=== PATIENT | female | born 1935 | race Caucasian/White ===

== ENCOUNTER → 2016-11-11 | Outpatient (CLI) | payer OTHER ==
[~2016-11-11] MED LIST: ATOR-24 PO; CALC500C70 PO; CITA20TA4 PO; FURO40TA3 PO; LISI-461 PO; NORT25CA PO; NVLGI7030 SC; SPIR25TA PO; TRAZ100T29 PO
== END | disposition home or self-care (01) ==
LOC: C.PAPS 08:36
PROVIDERS: ATTEND Obstetrics & Gynecology
DX: N89.8 Other specified noninflammatory disorders of vagina (principal)

== ENCOUNTER → 2017-02-07 | Outpatient (CLI) | payer OTHER ==
[2017-02-07 14:45] LABS: BASO % 0.2 %; BASO ABS # 0.02 K/uL (0-0.2); COMPLETE YES; EOS % 1.6 %; IG% 0.1 %; LYMPH % 16.7 %; LYMPH ABS # 1.39 K/uL (1.2-3.4); MEAN CELL VOLUME 90.3 fL (80-100); MEAN CORPUSCULAR HEMOGLOBIN 29.7 pg (25-34); MEAN CORPUSCULAR HGB CONC 32.9 g/dl (32-36); MEAN PLATELET VOLUME 10.1 fL (7.4-10.4); MONO % 7.9 %; NEUT % 73.5 %; PLATELET COUNT 228 K/uL (130-400); RED BLOOD COUNT 4.21 M/uL (4.2-5.4); WHITE BLOOD COUNT 8.33 K/uL (4.8-10.8)
[2017-02-07 14:58] LABS: URINE APPEARANCE CLEAR (CLEAR); URINE BILIRUBIN NEG (NEG); URINE COLOR YELLOW; URINE EPITHELIAL CELL AUTO >30 /lpf (0-5); URINE NITRITE NEG (NEG); URINE SPECIFIC GRAVITY 1.025 (1.000-1.030); UROBILINOGEN NEG (NEG); ZZUR CULT IF INDIC CLEAN CATCH YES
[2017-02-07 15:10] LABS: MANUAL MICROSCOPIC REQUIRED? NO; REVIEW REQ? NO
[2017-02-07 15:11] LABS: URINE PROTIEN/CREAT RATIO 0.2 (0-0.2); URINE TOTAL PROTEIN 24.5 mg/dl (0-11.9)
[2017-02-07 15:12] LABS: BLOOD UREA NITROGEN 18 mg/dl (7-18); BUN/CREATININE RATIO 20.2 (10-20); CALCIUM 8.9 mg/dl (8.5-10.1); CARBON DIOXIDE 31 mmol/L (21-32); CHLORIDE 105 mmol/L (98-107); CREATININE 0.91 mg/dl (0.60-1.20); GLUCOSE 202 mg/dl (70-99); POTASSIUM 4.5 mmol/L (3.5-5.1); SODIUM 142 mmol/L (136-145)
[2017-02-07 15:13] LABS: PHOSPHORUS 2.7 mg/dl (2.5-4.9)
== END | disposition home or self-care (01) ==
LOC: C.LAB1850 13:54
PROVIDERS: ATTEND Internal Medicine Nephrology
DX: N18.3 Chronic kidney disease, stage 3 (moderate) (principal)

== ENCOUNTER → 2017-08-08 | Outpatient (CLI) | payer OTHER ==
[2017-08-08 14:44] LABS: BASO % 0.3 %; BASO ABS # 0.03 K/uL (0-0.2); EOS % 1.8 %; HEMATOCRIT 41.3 % (37-47); HEMOGLOBIN 13.6 g/dL (12.0-16.0); IG# 0.02 K/uL (0.00-0.02); LYMPH % 23.2 %; LYMPH ABS # 2.61 K/uL (1.2-3.4); MEAN CELL VOLUME 88.6 fL (80-100); MEAN CORPUSCULAR HEMOGLOBIN 29.2 pg (25-34); MEAN CORPUSCULAR HGB CONC 32.9 g/dl (32-36); MEAN PLATELET VOLUME 10.2 fL (7.4-10.4); MONO % 8.5 %; MONO ABS # 0.96 K/uL (0.11-0.59); NEUT ABS # 7.42 K/uL (1.4-6.5); PLATELET COUNT 246 K/uL (130-400); RED CELL DISTRIBUTION WIDTH CV 13.7 % (11.5-14.5); RED CELL DISTRIBUTION WIDTH SD 44.5 fL (36.4-46.3); WHITE BLOOD COUNT 11.24 K/uL (4.8-10.8)
[2017-08-08 15:45] LABS: ALBUMIN 3.2 gm/dl (3.4-5.0); BLOOD UREA NITROGEN 20 mg/dl (7-18); CALCIUM 9.2 mg/dl (8.5-10.1); CARBON DIOXIDE 30 mmol/L (21-32); CREATININE 0.97 mg/dl (0.60-1.20); GLUCOSE 140 mg/dl (70-99); PHOSPHORUS 2.7 mg/dl (2.5-4.9); POTASSIUM 3.9 mmol/L (3.5-5.1); SODIUM 141 mmol/L (136-145)
== END | disposition home or self-care (01) ==
LOC: C.LAB1850 13:29
PROVIDERS: ATTEND Internal Medicine Nephrology
DX: N18.3 Chronic kidney disease, stage 3 (moderate) (principal)

== ENCOUNTER → 2017-08-18 | Outpatient (CLI) | payer OTHER | END | disposition home or self-care (01) | LOC: C.LABSPEC 13:25 | PROVIDERS: ATTEND Internal Medicine Nephrology | DX: N18.3 Chronic kidney disease, stage 3 (moderate) (principal) ==

== ENCOUNTER 2018-08-26 09:48 | Inpatient (IN) ==
--- NOTE | 2018-08-26 10:11 | XRay Report ---
XR chest 1V portable CLINICAL HISTORY: Chest Pain COMPARISON STUDY: Chest CT 09/14/2015. FINDINGS: Lung volumes are normal. There is no pneumothorax or pleural effusion. There is no consolid ation or evidence for pulmonary edema. Moderate cardiomegaly is unchanged. IMPRESSION: 1. No acute cardiopulmonary findings. 2. Stable cardiomegaly. Electronically signed by: Yobani Harper M.D. 08/26/2018 10:10 AM
[2018-08-26] MEDS ORDERED: ATROPINE SO4 1 MG/ML 1ML VIAL ONE (10:13)
[2018-08-26 10:21] LABS: Basophils # (auto) 0.01 K/uL (0-0.2); Basophils % (auto) 0.2 %; Eosinophils # (auto) 0.18 K/uL (0-0.5); Eosinophils % (auto) 3.1 %; Hematocrit (blood only) 41.9 % (37-47); Hemoglobin 13.4 g/dL (12.0-16.0); Immature Granulocytes # (auto) 0.01 K/uL (0.00-0.02); Immature Granulocytes % (auto) 0.2 %; Lymphocytes # (auto) 1.66 K/uL (1.2-3.4); Mean Corpuscular Volume 93.3 fL (80-100); Mean Platelet Volume 9.9 fL (7.4-10.4); Monocytes % (auto) 8.7 %; Neutrophils # (auto) 3.36 K/uL (1.4-6.5); Neutrophils % (auto) 58.8 %; Platelet Count 169 K/uL (130-400); RDW Coefficient of Variation 13.6 % (11.5-14.5); RDW Standard Deviation 46.7 fL (36.4-46.3); Red Blood Count 4.49 M/uL (4.2-5.4); White Blood Count 5.72 K/uL (4.8-10.8)
[2018-08-26 10:32] LABS: iSTAT Creatinine 0.9 mg/dl (0.6-1.3); iSTAT Hemoglobin 13.3 g/dl (12.0-16.0); iSTAT Ionized Calcium 1.26 mmol/l (1.12-1.32)
[2018-08-26] MEDS ORDERED: ATROPINE SULFATE 0.1 MG/ML 10ML SYR IV STA ×2 (10:35)
[2018-08-26 10:40] LABS: Alanine Aminotransferase 13 U/L (12-78); Aspartate Aminotransferase 18 U/L (15-37); Blood Urea Nitrogen 16 mg/dl (7-18); Calcium 8.8 mg/dl (8.5-10.1); Carbon Dioxide 31 mmol/L (21-32); Chloride 113 mmol/L (98-107); Est GFR (African American) 72.4; Est GFR (Non-African American) 62.5; Glucose 102 mg/dl (70-99); Potassium 4.1 mmol/L (3.5-5.1); Sodium 146 mmol/L (136-145)
[2018-08-26 10:45] LABS: Albumin Globulin Ratio 0.8 (0.9-2); Alkaline Phosphatase 124 U/L (45-117); Bilirubin,Total 0.2 mg/dl (0.2-1); Creatine Kinase 104 U/L (26-192); Creatine Kinase MB 4.9 ng/ml (0.5-3.6); Globulin 3.6 gm/dl (2.5-4.0); NT Pro B Type Natriuretic Pept 922 pg/ml (0-1800); Total Protein 6.6 gm/dl (6.4-8.2); Troponin I 0.025 ng/ml (0-0.045)
[2018-08-26] MEDS ORDERED: EPINEPHrine 2 MG in DEXTROSE 5% 250 ML IV STA (10:50)
--- NOTE | 2018-08-26 10:55 | Critical Care Consultation ---
Date of Consultation August 26, 2018 Assessment & Plan (1) Admitted to intensive care unit: Reason Critically Ill: 83-year-old female requiring dopamine for symptomatic bradycardia PLAN: Resp: Exertional dyspnea -Wean O2 as tolerated -Likely secondary to cardiac disease CV: Symptomatic bradycardia -Dopamine as tolerated -Transcutaneous pacer pads at all times -Patient consented for central line -Will consent for PICC line for dopamine administration would place large bore central venous access in case temporary pacemaker is required Fluids/Renal: Mild hypernatremia -No additional IV fluids at this time ID: Check Lyme titer GI/Nutrition: Heart healthy diet with carb consistent diet Elevated alkaline phosphatase Heme: Lovenox for DVT prophylaxis Endocrine: ICU hyperglycemia protocol -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 This is a life/limb threatening event. This includes time spent evaluating patient, direct bedside care, chart review, placing orders, interpretation of diagnostic studies, discussion with consultants, patient, and/or family members regarding treatment decisions, as well as other required patient management activities. This time is exclusive of all separately billable procedures, and teaching time and separate from and in addition to any other critical care service time. Present on Admission?: Yes History of Present Illness Reason for Consultation: Symptomatic bradycardia Requesting Physician: Royce Campa MD Attending Physician: Traci Le DO History of Present Illness Patient is an 83-year-old female with significant past medical history for cardiac disease, CHF, hypertension, diabetes who presented today with increasing shortness of breath and lightheadedness in the emergency department she was found to have a bradycardic idioventricular rhythm. She is responding to dopamine at this time and she is going to be admitted to the ICU for further evaluation and management and evaluation for possible pacemaker. Allergies Allergy/AdvReac Type Severity Reaction Status Date / Time No Known Allergies Allergy Unverified 08/26/18 10:36 Home Medications Home Medications Medication Instructions Recorded Confirmed Type C,E,zinc,copper [id number] 1 cap PO DAILY 08/26/18 08/26/18 History [Ocuvite Adult 50 Plus] aspirin 81 mg PO DAILY 08/26/18 08/26/18 History atorvastatin 40 mg PO HS 08/26/18 08/26/18 History buspirone 10 mg PO BID 08/26/18 08/26/18 History citalopram 20 mg PO DAILY 08/26/18 08/26/18 History clopidogrel 75 mg PO DAILY 08/26/18 08/26/18 History cyanocobalamin (vitamin B-12) 1,000 mcg PO DAILY 08/26/18 08/26/18 History [Vitamin B-12] furosemide 40 mg PO DAILY 08/26/18 08/26/18 History insulin NPH and regular human 32 unit SUBCUT QPM 08/26/18 08/26/18 History [Novolin 70-30 FlexPen U-100] insulin NPH and regular human 60 unit SUBCUT QAM 08/26/18 08/26/18 History [Novolin 70-30 FlexPen U-100] isosorbide mononitrate 30 mg PO DAILY 08/26/18 08/26/18 History lisinopril 5 mg PO DAILY 08/26/18 08/26/18 History melatonin 5 mg PO HS PRN 08/26/18 08/26/18 History topiramate 25 mg PO DAILY 08/26/18 08/26/18 History Patient History Medical History Diabetes (Chronic) Hypertension (Chronic) Acute on chronic diastolic CHF (congestive heart failure) (Acute 06/16/14) Headache (Acute) Hypoxia (Acute) Shortness of breath (Acute) Family History Other Family history non-contributory Social History Preferred Language: [place] marital status: Current Living Situation: Spouse current occupational status: retired Feels Safe at Home: Yes Smoking Status: Former smoker Review of Systems No chest pain, shortness of breath, exertional dyspnea. Physical Exam Vital Signs (Past 24 Hours): Last Vital Signs Temp 36.9 C 08/26/18 09:50 Pulse 49 L 08/26/18 10:46 Resp 30 H 08/26/18 10:46 BP 124/49 L 08/26/18 10:45 Pulse Ox 95 08/26/18 10:47 General: Elderly female who appears her stated age I have reviewed the recorded vital signs Neurological: RASS score: 0, Moves all 4 extremities, Psychological: GCS 15 following complex commands Eyes: Pupils are equal, round and reactive to light, anicteric sclera. Symmetrical lids. HENT: Oropharynx is clear, mucous membranes are moist. Neck: Supple. Symmetric. trachea midline. No thyromegaly. Cardiovascular: Normal peripheral perfusion. Distal pulses and capillary refill intact. No JVD. Respiratory: Respirations are non-labored, no accessory muscle use. Breath sounds are equal. Gastrointestinal: Soft. Non-distended. Lymphatic: No cervical lymphadenopathy. Musculoskeletal: No deformity. No clubbing nor cyanosis. Results & Data Laboratory Results 08/26/18 08/26/18 08/26/18 Range/Units 10:19 10:10 10:10 WBC (4.8-10.8) K/uL RBC (4.2-5.4) M/uL Hgb (12.0-16.0) g/dL POC Hgb 13.3 (12.0-16.0) g/dl Hct (37-47) % POC Hct 39 (37-47) % MCV (80-100) fL MCH (25-34) pg MCHC (32-36) g/dL RDW Std Deviation (36.4-46.3) fL RDW Coeff of Chun (11.5-14.5) % Plt Count (130-400) K/uL MPV (7.4-10.4) fL Immature Gran % (Auto) % Neut % (Auto) % Lymph % (Auto) % [place] % (Auto) % Eos % (Auto) % Baso % (Auto) % Immature Gran # (Auto) (0.00-0.02) K/uL Neut # (Auto) (1.4-6.5) K/uL Lymph # (Auto) (1.2-3.4) K/uL [place] # (Auto) (0.11-0.59) K/uL Eos # (Auto) (0-0.5) K/uL Baso # (Auto) (0-0.2) K/uL PT Pending INR Pending APTT Pending PTT Ratio Pending POC Sodium 146 H (135-144) mEq/L Sodium (136-145) mmol/L POC Potassium 4.0 (3.3-5.0) mEq/L Potassium (3.5-5.1) mmol/L POC Chloride 107 (101-112) mEq/L Chloride (98-107) mmol/L Carbon Dioxide (21-32) mmol/L POC Total CO2 28 (24-31) mEq/l Anion Gap (3-11) POC Anion Gap 15.0 L (16-25) mmol/L POC BUN 16 (7-18) mg/dl BUN (7-18) mg/dl Creatinine (0.6-1.2) mg/dl POC Creatinine 0.9 (0.6-1.3) mg/dl Est Cr Clr Drug Dosing Est GFR ( Amer) Est GFR (Non-Af Amer) BUN/Creatinine Ratio (10-20) Glucose (70-99) mg/dl POC Glucose (other) 101 H (70-99) mg/dl Calcium (8.5-10.1) mg/dl POC Ioniz Calcium Abhilash 1.26 (1.12-1.32) mmol/l Phosphorus Pending Magnesium Pending Total Bilirubin (0.2-1) mg/dl AST (15-37) U/L ALT (12-78) U/L Alkaline Phosphatase (45-117) U/L Total Creatine Kinase (26-192) U/L CK-MB (CK-2) (0.5-3.6) ng/ml CK/CKMB % Calc (0-3.0) Troponin I (0-0.045) ng/ml NT-Pro-B Natriuret Pep (0-1800) pg/ml Total Protein (6.4-8.2) gm/dl Albumin (3.4-5.0) gm/dl Globulin (2.5-4.0) gm/dl Albumin/Globulin Ratio (0.9-2) Lipase (73-393) U/L 08/26/18 08/26/18 Range/Units 10:10 10:10 WBC 5.72 (4.8-10.8) K/uL RBC 4.49 (4.2-5.4) M/uL Hgb 13.4 (12.0-16.0) g/dL POC Hgb (12.0-16.0) g/dl Hct 41.9 (37-47) % POC Hct (37-47) % MCV 93.3 (80-100) fL MCH 29.8 (25-34) pg MCHC 32.0 (32-36) g/dL RDW Std Deviation 46.7 H (36.4-46.3) fL RDW Coeff of Chun 13.6 (11.5-14.5) % Plt Count 169 (130-400) K/uL MPV 9.9 (7.4-10.4) fL Immature Gran % (Auto) 0.2 % Neut % (Auto) 58.8 % Lymph % (Auto) 29.0 % [place] % (Auto) 8.7 % Eos % (Auto) 3.1 % Baso % (Auto) 0.2 % Immature Gran # (Auto) 0.01 (0.00-0.02) K/uL Neut # (Auto) 3.36 (1.4-6.5) K/uL Lymph # (Auto) 1.66 (1.2-3.4) K/uL [place] # (Auto) 0.50 (0.11-0.59) K/uL Eos # (Auto) 0.18 (0-0.5) K/uL Baso # (Auto) 0.01 (0-0.2) K/uL PT INR APTT PTT Ratio POC Sodium (135-144) mEq/L Sodium 146 H (136-145) mmol/L POC Potassium (3.3-5.0) mEq/L Potassium 4.1 (3.5-5.1) mmol/L POC Chloride (101-112) mEq/L Chloride 113 H (98-107) mmol/L Carbon Dioxide 31 (21-32) mmol/L POC Total CO2 (24-31) mEq/l Anion Gap 2.0 L (3-11) POC Anion Gap (16-25) mmol/L POC BUN (7-18) mg/dl BUN 16 (7-18) mg/dl Creatinine 0.87 (0.6-1.2) mg/dl POC Creatinine (0.6-1.3) mg/dl Est Cr Clr Drug Dosing Not Reportable Est GFR ( Amer) 72.4 Est GFR (Non-Af Amer) 62.5 BUN/Creatinine Ratio 18.0 (10-20) Glucose 102 H (70-99) mg/dl POC Glucose (other) (70-99) mg/dl Calcium 8.8 (8.5-10.1) mg/dl POC Ioniz Calcium Abhilash (1.12-1.32) mmol/l Phosphorus Magnesium Total Bilirubin 0.2 (0.2-1) mg/dl AST 18 (15-37) U/L ALT 13 (12-78) U/L Alkaline Phosphatase 124 H (45-117) U/L Total Creatine Kinase 104 (26-192) U/L CK-MB (CK-2) 4.9 H (0.5-3.6) ng/ml CK/CKMB % Calc 4.7 H (0-3.0) Troponin I 0.025 (0-0.045) ng/ml NT-Pro-B Natriuret Pep 922 (0-1800) pg/ml Total Protein 6.6 (6.4-8.2) gm/dl Albumin 3.0 L (3.4-5.0) gm/dl Globulin 3.6 (2.5-4.0) gm/dl Albumin/Globulin Ratio 0.8 L (0.9-2) Lipase 115 (73-393) U/L ECG Additional Comments: Idioventricular rhythm of 40 QRS duration 156 abnormal EKG
[2018-08-26] MEDS: DOPAMINE / D5W 400 MG/250 ML BAG IV SCH (11:10)
[2018-08-26 11:24] LABS: Partial Thromboplastin Ratio 0.9; Partial Thromboplastin Time 24.5 Seconds (21.0-31.0); Prothrombin Time 10.3 Seconds (9.0-12.0)
[2018-08-26 11:26] LABS: Magnesium 2.1 mg/dl (1.8-2.4); Phosphorus 2.6 mg/dl (2.5-4.9)
--- NOTE | 2018-08-26 11:34 | History & Physical Report ---
Date of Service August 26, 2018 Assessment & Plan (1) Bradycardia: EKG on admission showed ventricularly-based rhythm. Per ED physician, this is similar to priors (none in [facility]), but now with bradycardia to the 30s. BP has been stable, and patient reports minimal presyncopal symptoms. Responsive to atropine pushes in the ED. - Dopamine infusion per ICU physician -> HR had responded appropriately with rate in the 50s on my exam in the ED & BP was still stable - Cardiology consult - Monitor HR and BP - Likely pacemaker per cardiology (2) Dyspnea: Presumably due to bradycardia. Appears euvolemic on exam (no edema, no JVD, normal CXR and BNP), so heart failure unlikely. Has been on long-standing 2.5L NC for COPD & nocturnal hypoxemia, but currently 94% on room air, so less likely to be a primary lung issue. - Address bradycardia as above - Monitor O2 sat - PT/OT - Consider further pulmonary work-up if shortness of breath doesn't improve with regular heart rate (3) Hypertension: BP in the ED was 130/50 with bradycardia. - Monitor BP - Hold HTN meds until HR stabilized (4) Chronic diastolic (congestive) heart failure: Echo in 2014 showed LFEV 60% with Grade 1 diastolic dysfunction. On Lasix at home; no weight gain per patient. - Continue home ASA, clopidogrel, statin, and furosemide - Hold Imdur until seen by cardiology or HR stabilizes - Monitor volume status (5) Diabetes: No recent A1c in our records. On insulin 70/30 BID at home. - Glycemic consult - Will adjust to long-acting and SSI while inpatient - Repeat A1c (6) Chronic hypoxemic respiratory failure: On 2.5L NC 24-hours/day per patient for years (last pulmonary note I see is from 2014). For COPD and noctural hypoxemia. 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 - Monitor pulse ox - O2 PRN (7) DVT prophylaxis: SCDs - Hold chemoprophylaxis until seen by cardiology given possible procedure History of Present Illness Primary Care Provider: Rahsavanna Pulido 83yo F w/ hx of HTN, HLD, DM, and diastolic CHF who presents with shortness of breath x 3 days. She reports a rapid onset. No cough, no fevers, chills, no sputum. She notes some PND and dyspnea on exertion that have been longer- standing; however, she denies any edema (lower extremity or abdominal) and does not know if she's gained any weight in the last 1-2 weeks. She usually walks outside with a walker, but notes that over weeks, she has had trouble walking around the house and that she should probably use her walker at home as well. She reports some mild lightheadedness that is transient in the last 3 days as well, but no syncopal events. Doesn't note if this is worse with position changes. No chest pain, no palpitations. Allergies Allergy/AdvReac Type Severity Reaction Status Date / Time No Known Allergies Allergy Unverified 08/26/18 10:36 Home Medications Home Medications Medication Instructions Recorded Confirmed Type C,E,zinc,copper [id number] 1 cap PO DAILY 08/26/18 08/26/18 History [Ocuvite Adult 50 Plus] aspirin 81 mg PO DAILY 08/26/18 08/26/18 History atorvastatin 40 mg PO HS 08/26/18 08/26/18 History buspirone 10 mg PO BID 08/26/18 08/26/18 History citalopram 20 mg PO DAILY 08/26/18 08/26/18 History clopidogrel 75 mg PO DAILY 08/26/18 08/26/18 History cyanocobalamin (vitamin B-12) 1,000 mcg PO DAILY 08/26/18 08/26/18 History [Vitamin B-12] furosemide 40 mg PO DAILY 08/26/18 08/26/18 History insulin NPH and regular human 32 unit SUBCUT QPM 08/26/18 08/26/18 History [Novolin 70-30 FlexPen U-100] insulin NPH and regular human 60 unit SUBCUT QAM 08/26/18 08/26/18 History [Novolin 70-30 FlexPen U-100] isosorbide mononitrate 30 mg PO DAILY 08/26/18 08/26/18 History lisinopril 5 mg PO DAILY 08/26/18 08/26/18 History melatonin 5 mg PO HS PRN 08/26/18 08/26/18 History topiramate 25 mg PO DAILY 08/26/18 08/26/18 History Past Med/Surg History Medical History Diabetes (Chronic) Hypertension (Chronic) Acute on chronic diastolic CHF (congestive heart failure) (Acute 06/16/14) Headache (Acute) Hypoxia (Acute) Shortness of breath (Acute) Family History Father Hypertension Social History Preferred Language: [place] Communication Ability: Effective Urologist Required: No Beliefs That Will Affect Care: None marital status: Current Living Situation: Spouse current occupational status: retired Other Information That Helps Us Care for You: No Feels Safe at Home: Yes Safety Concerns: Feels Safe At This Time Smoking Status: Former smoker Hx Alcohol Use: No Hx Substance Use: No Review of Systems Constitutional: no fever, no chills and no sweats Eyes: no diplopia Ear, Nose, Mouth, Throat: no ear trauma, no nasal discharge and no dental pain Respiratory: + dyspnea and + dyspnea on exertion; no cough and no chest congestion Cardiovascular: + dyspnea and + orthopnea; no chest pain, no dyspnea on exertion, no palpitations, no syncope and no edema Gastrointestinal: no abdominal pain, no belching, no constipation, no diarrhea/loose stools, no blood in stools and no melena Musculoskeletal: no back pain, no joint pain and no muscle weakness Integumentary: no rash, no skin ulcer and no erythema Neurologic: no generalized weakness, no loss of sensation, no numbness and no paresthesia Psychiatric: no depression and no anxiety Endocrine: no fatigue, no polydipsia and no polyphagia Physical Exam Vital Signs (Past 24 Hours): Last Vital Signs Temp 36.9 C 08/26/18 09:50 Pulse 54 L 08/26/18 11:16 Resp 18 08/26/18 11:16 BP 112/49 L 08/26/18 11:16 Pulse Ox 94 08/26/18 11:16 Constitutional: WD/WN, vitals as above Eyes: EOM intact bilaterally; no conjunctival abnormality ENMT: external ear and nose normal, oropharynx normal Neck: trachea midline, no thyromegaly normal visual inspection Respiratory: normal respiratory effort, lungs clear to auscultation no respiratory distress Cardiovascular: Rate/Rhythm: regular rhythm and + bradycardic Heart Sounds: normal S1 and normal S2 Vessels: no JVD Extremities: no edema Gastrointestinal (Abdomen): Inspection/Auscultation: abdomen normal to inspection; abdomen not distended Musculoskeletal: no cyanosis or clubbing, extremities motor strength 5/5 Skin: no rashes, warm and dry Neurologic: moves all extremities and awake Psychiatric: Orientation: alert, oriented to person and cooperative
[2018-08-26 12:09] LABS: Lyme Ab IgG w/WB Rflx Negative (Negative); Lyme Ab IgM w/WB Rflx Negative (Negative)
[2018-08-26] MEDS ORDERED: GLUCOSE 10 TABS/TUBE PO PRN (12:58)
[2018-08-26] MEDS ORDERED: ICU PROTOCOL FOR HYPERGLYCEMIA PRN (12:58)
[2018-08-26] MEDS ORDERED: CARBOHYDRATES FOR HYPOGLYCEMIA PO PRN (12:58)
[2018-08-26] MEDS ORDERED: DEXTROSE 50% 50 ML SYRINGE IV PRN (12:58)
[2018-08-26] MEDS ORDERED: GLUCOSE 40% GEL 15 GM TUBE PO PRN (12:58)
[2018-08-26] MEDS ORDERED: GLUCAGON FOR INJ 1 MG VIAL SQ PRN (12:58)
[2018-08-26] MEDS: INSULIN ASPART 100 UNITS/ML 3 ML PEN SC SCH ×3 (14:04→21:39)
[2018-08-26] MEDS: NSS + 20MEQ KCL 20 MEQ/1,000 ML BAG IV SCH (14:06)
[2018-08-26] MEDS: ENOXAPARIN INJ 40 MG/0.4 ML SYR SQ SCH (16:35)
[2018-08-26] MEDS: ATORVASTATIN 40 MG TAB PO SCH (21:41)
[2018-08-27] MEDS: DOPAMINE / D5W 400 MG/250 ML BAG IV SCH ×2 (02:04→13:00)
[2018-08-27] MEDS: NSS + 20MEQ KCL 20 MEQ/1,000 ML BAG IV SCH (02:06)
--- NOTE | 2018-08-27 05:51 | Critical Care Progress Note ---
Date of Service August 27, 2018 Assessment & Plan (1) Admitted to intensive care unit: Reason Critically Ill: 83-year-old female requiring dopamine for symptomatic bradycardia PLAN: Resp: Exertional dyspnea -Likely secondary to cardiac conduction disease CV: Symptomatic bradycardia: Improved with dopamine -Continue to watch vascular access points -Transcutaneous pacer pads at all times -Patient consented for central line -Continue peripheral IVs, risk of central line outweigh risk of potential extravasation, monitor IV sites Fluids/Renal: Mild hypernatremia -No additional IV fluids at this time ID: Lyme titer: Negative GI/Nutrition: Heart healthy diet with carb consistent diet Elevated alkaline phosphatase -N.p.o. 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 This is a life/limb threatening event. This includes time spent evaluating patient, direct bedside care, chart review, placing orders, interpretation of diagnostic studies, discussion with consultants, patient, and/or family members regarding treatment decisions, as well as other required patient management activities. This time is exclusive of all separately billable procedures, and teaching time and separate from and in addition to any other critical care service time. Subjective No overnight events, no chest pain no dizziness PICC team unable to place advanced access secondary to vasculature being too narrow in diameter Physical Exam Vital Signs (Past 24 Hours): Last Vital Signs Temp 36.4 C L 08/26/18 14:15 Pulse 53 L 08/26/18 14:15 Resp 20 08/26/18 14:15 BP 155/52 H 08/26/18 14:01 Pulse Ox 97 08/26/18 14:15 General: Alert. nontoxic. Skin: Warm, dry, Head: Atraumatic Ears, nose, mouth and throat: airway patent Cardiovascular: Normal peripheral perfusion Respiratory: no respiratory distress Gastrointestinal: Non distended Musculoskeletal: No deformity Results & Data Laboratory Results 08/26/18 08/26/18 08/26/18 Range/Units 20:43 15:58 15:50 WBC (4.8-10.8) K/uL RBC (4.2-5.4) M/uL Hgb (12.0-16.0) g/dL POC Hgb (12.0-16.0) g/dl Hct (37-47) % POC Hct (37-47) % MCV (80-100) fL MCH (25-34) pg MCHC (32-36) g/dL RDW Std Deviation (36.4-46.3) fL RDW Coeff of Chun (11.5-14.5) % Plt Count (130-400) K/uL MPV (7.4-10.4) fL Immature Gran % (Auto) % Neut % (Auto) % Lymph % (Auto) % Iron % (Auto) % Eos % (Auto) % Baso % (Auto) % Immature Gran # (Auto) (0.00-0.02) K/uL Neut # (Auto) (1.4-6.5) K/uL Lymph # (Auto) (1.2-3.4) K/uL Iron # (Auto) (0.11-0.59) K/uL Eos # (Auto) (0-0.5) K/uL Baso # (Auto) (0-0.2) K/uL PT (9.0-12.0) Seconds INR (0.9-1.1) APTT (21.0-31.0) Seconds PTT Ratio POC Sodium (135-144) mEq/L Sodium (136-145) mmol/L POC Potassium (3.3-5.0) mEq/L Potassium (3.5-5.1) mmol/L POC Chloride (101-112) mEq/L Chloride (98-107) mmol/L Carbon Dioxide (21-32) mmol/L POC Total CO2 (24-31) mEq/l Anion Gap (3-11) POC Anion Gap (16-25) mmol/L POC BUN (7-18) mg/dl BUN (7-18) mg/dl Creatinine (0.6-1.2) mg/dl POC Creatinine (0.6-1.3) mg/dl Est Cr Clr Drug Dosing Est GFR ( Amer) Est GFR (Non-Af Amer) BUN/Creatinine Ratio (10-20) Glucose (70-99) mg/dl POC Glucose 109 H 119 H (70-99) POC Glucose (other) (70-99) mg/dl Estimat Average Glucose Hemoglobin A1c Lactate (0.4-2.0) mmol/L Calcium (8.5-10.1) mg/dl POC Ioniz Calcium Abhilash (1.12-1.32) mmol/l Phosphorus (2.5-4.9) mg/dl Magnesium (1.8-2.4) mg/dl Total Bilirubin (0.2-1) mg/dl AST (15-37) U/L ALT (12-78) U/L Alkaline Phosphatase (45-117) U/L Total Creatine Kinase (26-192) U/L CK-MB (CK-2) (0.5-3.6) ng/ml CK/CKMB % Calc (0-3.0) Troponin I 0.026 (0-0.045) ng/ml NT-Pro-B Natriuret Pep (0-1800) pg/ml Total Protein (6.4-8.2) gm/dl Albumin (3.4-5.0) gm/dl Globulin (2.5-4.0) gm/dl Albumin/Globulin Ratio (0.9-2) Lipase (73-393) U/L TSH (0.300-4.500) uIu/ml Nasal Screen MRSA (PCR) (Negative) Lyme Disease IgG Ab (Negative) Lyme Disease IgM Ab (Negative) 08/26/18 08/26/18 08/26/18 Range/Units 14:18 14:03 14:02 WBC (4.8-10.8) K/uL RBC (4.2-5.4) M/uL Hgb (12.0-16.0) g/dL POC Hgb (12.0-16.0) g/dl Hct (37-47) % POC Hct (37-47) % MCV (80-100) fL MCH (25-34) pg MCHC (32-36) g/dL RDW Std Deviation (36.4-46.3) fL RDW Coeff of Chun (11.5-14.5) % Plt Count (130-400) K/uL MPV (7.4-10.4) fL Immature Gran % (Auto) % Neut % (Auto) % Lymph % (Auto) % Iron % (Auto) % Eos % (Auto) % Baso % (Auto) % Immature Gran # (Auto) (0.00-0.02) K/uL Neut # (Auto) (1.4-6.5) K/uL Lymph # (Auto) (1.2-3.4) K/uL Iron # (Auto) (0.11-0.59) K/uL Eos # (Auto) (0-0.5) K/uL Baso # (Auto) (0-0.2) K/uL PT (9.0-12.0) Seconds INR (0.9-1.1) APTT (21.0-31.0) Seconds PTT Ratio POC Sodium (135-144) mEq/L Sodium (136-145) mmol/L POC Potassium (3.3-5.0) mEq/L Potassium (3.5-5.1) mmol/L POC Chloride (101-112) mEq/L Chloride (98-107) mmol/L Carbon Dioxide (21-32) mmol/L POC Total CO2 (24-31) mEq/l Anion Gap (3-11) POC Anion Gap (16-25) mmol/L POC BUN (7-18) mg/dl BUN (7-18) mg/dl Creatinine (0.6-1.2) mg/dl POC Creatinine (0.6-1.3) mg/dl Est Cr Clr Drug Dosing Est GFR ( Amer) Est GFR (Non-Af Amer) BUN/Creatinine Ratio (10-20) Glucose (70-99) mg/dl POC Glucose 124 H 54 L* 51 L* (70-99) POC Glucose (other) (70-99) mg/dl Estimat Average Glucose Hemoglobin A1c Lactate (0.4-2.0) mmol/L Calcium (8.5-10.1) mg/dl POC Ioniz Calcium Abhilash (1.12-1.32) mmol/l Phosphorus (2.5-4.9) mg/dl Magnesium (1.8-2.4) mg/dl Total Bilirubin (0.2-1) mg/dl AST (15-37) U/L ALT (12-78) U/L Alkaline Phosphatase (45-117) U/L Total Creatine Kinase (26-192) U/L CK-MB (CK-2) (0.5-3.6) ng/ml CK/CKMB % Calc (0-3.0) Troponin I (0-0.045) ng/ml NT-Pro-B Natriuret Pep (0-1800) pg/ml Total Protein (6.4-8.2) gm/dl Albumin (3.4-5.0) gm/dl Globulin (2.5-4.0) gm/dl Albumin/Globulin Ratio (0.9-2) Lipase (73-393) U/L TSH (0.300-4.500) uIu/ml Nasal Screen MRSA (PCR) (Negative) Lyme Disease IgG Ab (Negative) Lyme Disease IgM Ab (Negative) 08/26/18 08/26/18 08/26/18 Range/Units 12:40 12:35 10:19 WBC (4.8-10.8) K/uL RBC (4.2-5.4) M/uL Hgb (12.0-16.0) g/dL POC Hgb 13.3 (12.0-16.0) g/dl Hct (37-47) % POC Hct 39 (37-47) % MCV (80-100) fL MCH (25-34) pg MCHC (32-36) g/dL RDW Std Deviation (36.4-46.3) fL RDW Coeff of Chun (11.5-14.5) % Plt Count (130-400) K/uL MPV (7.4-10.4) fL Immature Gran % (Auto) % Neut % (Auto) % Lymph % (Auto) % Iron % (Auto) % Eos % (Auto) % Baso % (Auto) % Immature Gran # (Auto) (0.00-0.02) K/uL Neut # (Auto) (1.4-6.5) K/uL Lymph # (Auto) (1.2-3.4) K/uL Iron # (Auto) (0.11-0.59) K/uL Eos # (Auto) (0-0.5) K/uL Baso # (Auto) (0-0.2) K/uL PT (9.0-12.0) Seconds INR (0.9-1.1) APTT (21.0-31.0) Seconds PTT Ratio POC Sodium 146 H (135-144) mEq/L Sodium (136-145) mmol/L POC Potassium 4.0 (3.3-5.0) mEq/L Potassium (3.5-5.1) mmol/L POC Chloride 107 (101-112) mEq/L Chloride (98-107) mmol/L Carbon Dioxide (21-32) mmol/L POC Total CO2 28 (24-31) mEq/l Anion Gap (3-11) POC Anion Gap 15.0 L (16-25) mmol/L POC BUN 16 (7-18) mg/dl BUN (7-18) mg/dl Creatinine (0.6-1.2) mg/dl POC Creatinine 0.9 (0.6-1.3) mg/dl Est Cr Clr Drug Dosing Est GFR ( Amer) Est GFR (Non-Af Amer) BUN/Creatinine Ratio (10-20) Glucose (70-99) mg/dl POC Glucose (70-99) POC Glucose (other) 101 H (70-99) mg/dl Estimat Average Glucose Hemoglobin A1c Lactate 0.5 (0.4-2.0) mmol/L Calcium (8.5-10.1) mg/dl POC Ioniz Calcium Abhilash 1.26 (1.12-1.32) mmol/l Phosphorus (2.5-4.9) mg/dl Magnesium (1.8-2.4) mg/dl Total Bilirubin (0.2-1) mg/dl AST (15-37) U/L ALT (12-78) U/L Alkaline Phosphatase (45-117) U/L Total Creatine Kinase (26-192) U/L CK-MB (CK-2) (0.5-3.6) ng/ml CK/CKMB % Calc (0-3.0) Troponin I (0-0.045) ng/ml NT-Pro-B Natriuret Pep (0-1800) pg/ml Total Protein (6.4-8.2) gm/dl Albumin (3.4-5.0) gm/dl Globulin (2.5-4.0) gm/dl Albumin/Globulin Ratio (0.9-2) Lipase (73-393) U/L TSH (0.300-4.500) uIu/ml Nasal Screen MRSA (PCR) Negative (Negative) Lyme Disease IgG Ab (Negative) Lyme Disease IgM Ab (Negative) 08/26/18 08/26/18 08/26/18 Range/Units 10:10 10:10 10:10 WBC (4.8-10.8) K/uL RBC (4.2-5.4) M/uL Hgb (12.0-16.0) g/dL POC Hgb (12.0-16.0) g/dl Hct (37-47) % POC Hct (37-47) % MCV (80-100) fL MCH (25-34) pg MCHC (32-36) g/dL RDW Std Deviation (36.4-46.3) fL RDW Coeff of Chun (11.5-14.5) % Plt Count (130-400) K/uL MPV (7.4-10.4) fL Immature Gran % (Auto) % Neut % (Auto) % Lymph % (Auto) % Iron % (Auto) % Eos % (Auto) % Baso % (Auto) % Immature Gran # (Auto) (0.00-0.02) K/uL Neut # (Auto) (1.4-6.5) K/uL Lymph # (Auto) (1.2-3.4) K/uL Iron # (Auto) (0.11-0.59) K/uL Eos # (Auto) (0-0.5) K/uL Baso # (Auto) (0-0.2) K/uL PT (9.0-12.0) Seconds INR (0.9-1.1) APTT (21.0-31.0) Seconds PTT Ratio POC Sodium (135-144) mEq/L Sodium (136-145) mmol/L POC Potassium (3.3-5.0) mEq/L Potassium (3.5-5.1) mmol/L POC Chloride (101-112) mEq/L Chloride (98-107) mmol/L Carbon Dioxide (21-32) mmol/L POC Total CO2 (24-31) mEq/l Anion Gap (3-11) POC Anion Gap (16-25) mmol/L POC BUN (7-18) mg/dl BUN (7-18) mg/dl Creatinine (0.6-1.2) mg/dl POC Creatinine (0.6-1.3) mg/dl Est Cr Clr Drug Dosing Est GFR ( Amer) Est GFR (Non-Af Amer) BUN/Creatinine Ratio (10-20) Glucose (70-99) mg/dl POC Glucose (70-99) POC Glucose (other) (70-99) mg/dl Estimat Average Glucose Pending Hemoglobin A1c Pending Lactate (0.4-2.0) mmol/L Calcium (8.5-10.1) mg/dl POC Ioniz Calcium Abhilash (1.12-1.32) mmol/l Phosphorus (2.5-4.9) mg/dl Magnesium (1.8-2.4) mg/dl Total Bilirubin (0.2-1) mg/dl AST (15-37) U/L ALT (12-78) U/L Alkaline Phosphatase (45-117) U/L Total Creatine Kinase (26-192) U/L CK-MB (CK-2) (0.5-3.6) ng/ml CK/CKMB % Calc (0-3.0) Troponin I (0-0.045) ng/ml NT-Pro-B Natriuret Pep (0-1800) pg/ml Total Protein (6.4-8.2) gm/dl Albumin (3.4-5.0) gm/dl Globulin (2.5-4.0) gm/dl Albumin/Globulin Ratio (0.9-2) Lipase (73-393) U/L TSH Cancelled (0.300-4.500) uIu/ml Nasal Screen MRSA (PCR) (Negative) Lyme Disease IgG Ab Negative (Negative) Lyme Disease IgM Ab Negative (Negative) 08/26/18 08/26/18 08/26/18 Range/Units 10:10 10:10 10:10 WBC (4.8-10.8) K/uL RBC (4.2-5.4) M/uL Hgb (12.0-16.0) g/dL POC Hgb (12.0-16.0) g/dl Hct (37-47) % POC Hct (37-47) % MCV (80-100) fL MCH (25-34) pg MCHC (32-36) g/dL RDW Std Deviation (36.4-46.3) fL RDW Coeff of Chun (11.5-14.5) % Plt Count (130-400) K/uL MPV (7.4-10.4) fL Immature Gran % (Auto) % Neut % (Auto) % Lymph % (Auto) % Iron % (Auto) % Eos % (Auto) % Baso % (Auto) % Immature Gran # (Auto) (0.00-0.02) K/uL Neut # (Auto) (1.4-6.5) K/uL Lymph # (Auto) (1.2-3.4) K/uL Iron # (Auto) (0.11-0.59) K/uL Eos # (Auto) (0-0.5) K/uL Baso # (Auto) (0-0.2) K/uL PT 10.3 (9.0-12.0) Seconds INR 1.0 (0.9-1.1) APTT 24.5 (21.0-31.0) Seconds PTT Ratio 0.9 POC Sodium (135-144) mEq/L Sodium 146 H (136-145) mmol/L POC Potassium (3.3-5.0) mEq/L Potassium 4.1 (3.5-5.1) mmol/L POC Chloride (101-112) mEq/L Chloride 113 H (98-107) mmol/L Carbon Dioxide 31 (21-32) mmol/L POC Total CO2 (24-31) mEq/l Anion Gap 2.0 L (3-11) POC Anion Gap (16-25) mmol/L POC BUN (7-18) mg/dl BUN 16 (7-18) mg/dl Creatinine 0.87 (0.6-1.2) mg/dl POC Creatinine (0.6-1.3) mg/dl Est Cr Clr Drug Dosing Not Reportable Est GFR ( Amer) 72.4 Est GFR (Non-Af Amer) 62.5 BUN/Creatinine Ratio 18.0 (10-20) Glucose 102 H (70-99) mg/dl POC Glucose (70-99) POC Glucose (other) (70-99) mg/dl Estimat Average Glucose Hemoglobin A1c Lactate (0.4-2.0) mmol/L Calcium 8.8 (8.5-10.1) mg/dl POC Ioniz Calcium Abhilash (1.12-1.32) mmol/l Phosphorus 2.6 (2.5-4.9) mg/dl Magnesium 2.1 (1.8-2.4) mg/dl Total Bilirubin 0.2 (0.2-1) mg/dl AST 18 (15-37) U/L ALT 13 (12-78) U/L Alkaline Phosphatase 124 H (45-117) U/L Total Creatine Kinase 104 (26-192) U/L CK-MB (CK-2) 4.9 H (0.5-3.6) ng/ml CK/CKMB % Calc 4.7 H (0-3.0) Troponin I 0.025 (0-0.045) ng/ml NT-Pro-B Natriuret Pep 922 (0-1800) pg/ml Total Protein 6.6 (6.4-8.2) gm/dl Albumin 3.0 L (3.4-5.0) gm/dl Globulin 3.6 (2.5-4.0) gm/dl Albumin/Globulin Ratio 0.8 L (0.9-2) Lipase 115 (73-393) U/L TSH 1.280 (0.300-4.500) uIu/ml Nasal Screen MRSA (PCR) (Negative) Lyme Disease IgG Ab (Negative) Lyme Disease IgM Ab (Negative) 08/26/18 Range/Units 10:10 WBC 5.72 (4.8-10.8) K/uL RBC 4.49 (4.2-5.4) M/uL Hgb 13.4 (12.0-16.0) g/dL POC Hgb (12.0-16.0) g/dl Hct 41.9 (37-47) % POC Hct (37-47) % MCV 93.3 (80-100) fL MCH 29.8 (25-34) pg MCHC 32.0 (32-36) g/dL RDW Std Deviation 46.7 H (36.4-46.3) fL RDW Coeff of Chun 13.6 (11.5-14.5) % Plt Count 169 (130-400) K/uL MPV 9.9 (7.4-10.4) fL Immature Gran % (Auto) 0.2 % Neut % (Auto) 58.8 % Lymph % (Auto) 29.0 % Iron % (Auto) 8.7 % Eos % (Auto) 3.1 % Baso % (Auto) 0.2 % Immature Gran # (Auto) 0.01 (0.00-0.02) K/uL Neut # (Auto) 3.36 (1.4-6.5) K/uL Lymph # (Auto) 1.66 (1.2-3.4) K/uL Iron # (Auto) 0.50 (0.11-0.59) K/uL Eos # (Auto) 0.18 (0-0.5) K/uL Baso # (Auto) 0.01 (0-0.2) K/uL PT (9.0-12.0) Seconds INR (0.9-1.1) APTT (21.0-31.0) Seconds PTT Ratio POC Sodium (135-144) mEq/L Sodium (136-145) mmol/L POC Potassium (3.3-5.0) mEq/L Potassium (3.5-5.1) mmol/L POC Chloride (101-112) mEq/L Chloride (98-107) mmol/L Carbon Dioxide (21-32) mmol/L POC Total CO2 (24-31) mEq/l Anion Gap (3-11) POC Anion Gap (16-25) mmol/L POC BUN (7-18) mg/dl BUN (7-18) mg/dl Creatinine (0.6-1.2) mg/dl POC Creatinine (0.6-1.3) mg/dl Est Cr Clr Drug Dosing Est GFR ( Amer) Est GFR (Non-Af Amer) BUN/Creatinine Ratio (10-20) Glucose (70-99) mg/dl POC Glucose (70-99) POC Glucose (other) (70-99) mg/dl Estimat Average Glucose Hemoglobin A1c Lactate (0.4-2.0) mmol/L Calcium (8.5-10.1) mg/dl POC Ioniz Calcium Abhilash (1.12-1.32) mmol/l Phosphorus (2.5-4.9) mg/dl Magnesium (1.8-2.4) mg/dl Total Bilirubin (0.2-1) mg/dl AST (15-37) U/L ALT (12-78) U/L Alkaline Phosphatase (45-117) U/L Total Creatine Kinase (26-192) U/L CK-MB (CK-2) (0.5-3.6) ng/ml CK/CKMB % Calc (0-3.0) Troponin I (0-0.045) ng/ml NT-Pro-B Natriuret Pep (0-1800) pg/ml Total Protein (6.4-8.2) gm/dl Albumin (3.4-5.0) gm/dl Globulin (2.5-4.0) gm/dl Albumin/Globulin Ratio (0.9-2) Lipase (73-393) U/L TSH (0.300-4.500) uIu/ml Nasal Screen MRSA (PCR) (Negative) Lyme Disease IgG Ab (Negative) Lyme Disease IgM Ab (Negative)
[2018-08-27] MEDS: CITALOPRAM 20 MG TAB PO SCH (07:40)
[2018-08-27] MEDS: ASPIRIN 81 MG ECTAB PO SCH (07:40)
[2018-08-27] MEDS: CLOPIDOGREL BISULFATE 75 MG TAB PO SCH (07:40)
[2018-08-27] MEDS: TOPIRAMATE 25 MG TAB PO SCH (07:40)
[2018-08-27] MEDS: INSULIN ASPART 100 UNITS/ML 3 ML PEN SC SCH ×4 (08:56→21:40)
--- NOTE | 2018-08-27 11:54 | Cardiology Consultation ---
Date of Consultation August 27, 2018 Assessment & Plan (1) Bradycardia: The patient was noted to be in an idioventricular rhythm at the time of her presentation. Suspect that her chronotropic incompetence was responsible for her complaints of dyspnea and PND. Fortunately, intravenous diabetes has returned her sinus mechanism. Will ask one of our associate professor of geology to evaluate the patient tomorrow. (2) Chronic diastolic (congestive) heart failure: Although the patient is not in overt failure at this time, her bradycardia may have exacerbated her known diastolic CHF. (3) Hypertension: Adequate control on her current regimen. (4) Shortness of breath: Likely related to chronotropic incompetence. History of Present Illness Attending Physician: Andrei Stanley History of Present Illness Mrs. Kramer is an 83-year-old female admitted yesterday with symptomatic bradycardia. This consultation was ordered to assist in her cardiac management. Of note, the patient was previously cared for by Dr. Ferrera in the outpatient setting. The patient was in her usual state of health until approximately 3-4 days prior to presentation. She began to note PND and profound dyspnea with minimal physical exertion. She has not experienced any exertional chest pain. She presented to the emergency room was noted to be in an idioventricular rhythm with a heart rate in the 30s. She was started on intravenous dopamine and her sinus mechanism returned. She has noticed dramatic improvement in her overall sense of well-being. We have discussed the possible need for a permanent pacemaker. The patient understands and agrees to proceed. Currently, patient is resting comfortably in bed without complaints. Past medical and surgical history 1. Hypertension 2. Hypercholesterolemia 3. Chronic diastolic CHF 4. RBBB 5. Chronic renal failure 6. COPD 7. Chronic respiratory failure 8. Diabetes mellitus 9. Obesity 10. Obstructive sleep apnea 11. Vitamin-D deficiency 12. Cholecystectomy 13. x3 Social history and lives with her Cares for her disabled son No tobacco or alcohol. Family history Noncontributory Review of systems A 10 point review of systems was undertaken and negative except for that describ ed above. Allergies Allergy/AdvReac Type Severity Reaction Status Date / Time No Known Allergies Allergy Unverified 08/26/18 10:36 Home Medications Home Medications Medication Instructions Recorded Confirmed Type C,E,zinc,copper [id number] 1 cap PO DAILY 08/26/18 08/26/18 History [Ocuvite Adult 50 Plus] aspirin 81 mg PO DAILY 08/26/18 08/26/18 History atorvastatin 40 mg PO HS 08/26/18 08/26/18 History buspirone 10 mg PO BID 08/26/18 08/26/18 History citalopram 20 mg PO DAILY 08/26/18 08/26/18 History clopidogrel 75 mg PO DAILY 08/26/18 08/26/18 History cyanocobalamin (vitamin B-12) 1,000 mcg PO DAILY 08/26/18 08/26/18 History [Vitamin B-12] furosemide 40 mg PO DAILY 08/26/18 08/26/18 History insulin NPH and regular human 32 unit SUBCUT QPM 08/26/18 08/26/18 History [Novolin 70-30 FlexPen U-100] insulin NPH and regular human 60 unit SUBCUT QAM 08/26/18 08/26/18 History [Novolin 70-30 FlexPen U-100] isosorbide mononitrate 30 mg PO DAILY 08/26/18 08/26/18 History lisinopril 5 mg PO DAILY 08/26/18 08/26/18 History melatonin 5 mg PO HS PRN 08/26/18 08/26/18 History topiramate 25 mg PO DAILY 08/26/18 08/26/18 History Patient History Medical History Diabetes (Chronic) Hypertension (Chronic) Acute on chronic diastolic CHF (congestive heart failure) (Acute 06/16/14) Headache (Acute) Hypoxia (Acute) Shortness of breath (Acute) Family History Father Hypertension Social History Communication Ability: Effective Beliefs That Will Affect Care: None marital status: Current Living Situation: Spouse current occupational status: retired Other Information That Helps Us Care for You: No Feels Safe at Home: Yes Safety Concerns: Feels Safe At This Time Smoking Status: Former smoker Hx Alcohol Use: No Hx Substance Use: No Physical Exam Vital Signs (Past 24 Hours): Last Vital Signs Temp 36.5 C 08/27/18 04:00 Pulse 55 L 08/27/18 06:31 Resp 15 08/27/18 06:31 BP 146/51 H 08/27/18 06:31 Pulse Ox 96 08/27/18 06:31 Physical Exam: In general this is an obese white female in no acute distress. HEENT exam is negative. Neck is supple with full carotid upstrokes. There are no carotid bruits. Jugular venous pressure is flat at 90. There is no thyromegaly. Cardiovascular exam reveals a regular rhythm with a normal S1 and S2. No S3, S4, or murmurs are noted. Lungs are clear without rales, rhonchi, or wheezes. Abdomen is soft and nontender without bruits. Extremities reveal intact radial artery and posterior tibial pulses bilaterally. There is no peripheral edema. Results & Data Laboratory Results Laboratory Results - last 24 hr 08/26/18 08/26/18 08/26/18 12:35 12:40 14:02 POC Glucose 51 L* Lactate 0.5 Troponin I Nasal Screen MRSA (PCR) Negative 08/26/18 08/26/18 08/26/18 14:03 14:18 15:50 POC Glucose 54 L* 124 H Lactate Troponin I 0.026 Nasal Screen MRSA (PCR) 08/26/18 08/26/18 08/27/18 15:58 20:43 07:39 POC Glucose 119 H 109 H 192 H Lactate Troponin I Nasal Screen MRSA (PCR) 08/27/18 11:25 POC Glucose 234 H Lactate Troponin I Nasal Screen MRSA (PCR) Diagnostic Findings Initial EKG noted atrioventricular rhythm with a heart rate in the 30s. There is a complete right bundle-branch block. Follow-up EKG on dobutamine noted sinus bradycardia with a complete right bundle-branch block. Chest x-ray notes cardiomegaly.
[2018-08-27] MEDS: ENOXAPARIN INJ 40 MG/0.4 ML SYR SQ SCH (13:00)
[2018-08-27] MEDS: INSULIN GLARGINE SOLOSTAR 100 UNITS/ML 3 ML PEN SC SCH ×2 (13:01→21:40)
[2018-08-27] MEDS: ATORVASTATIN 40 MG TAB PO SCH (21:39)
[2018-08-28] MEDS ORDERED: SODIUM CHLORIDE 0.9% 1000ML 1,000 ML IV SCH
[2018-08-28] MEDS: DOPAMINE / D5W 400 MG/250 ML BAG IV SCH ×2 (02:21→17:14)
--- NOTE | 2018-08-28 04:20 | Hospitalist Progress Note ---
Date of Service August 27, 2018 Assessment & Plan (1) Bradycardia: presented with junctional bradycardia in the ER. converted to sinus bradycardia sometime just before transfer to ICU. she is not on AV jassi agents. lyme's is negative. remains on low-dose dopamine at 6mcg. cardiology consult appreciated. plan is for permanent pacemaker placement in the next 1-2 days pending EP evaluation. recheck K and mag in am. Present on Admission?: Yes (2) Chronic diastolic (congestive) heart failure: compensated. Present on Admission?: Yes (3) Diabetes: uncontrolled. add lantus 20 units BID. change goal range to 120-160. change correction factor to 20. change carb ratio to 1:6. Present on Admission?: Yes (4) Hypertension: BPs stable. Present on Admission?: Yes (5) DVT prophylaxis: holding lovenox in anticipation of pacemaker placement tomorrow. NPO after MN tonight. Subjective patient's BP remains stable despite bradycardia. bradycardia is sinus; no pauses or AV block. patient denied any complaints during the visit. Constitutional: no fever Respiratory: no cough and no dyspnea Cardiovascular: no chest pain Gastrointestinal: no abdominal pain Physical Exam Vital Signs (Past 24 Hours): Last Vital Signs Temp 36.8 C 08/28/18 00:01 Pulse 50 L 08/28/18 01:31 Resp 19 08/28/18 01:31 BP 160/54 H 08/28/18 01:31 Pulse Ox 96 08/28/18 01:31 Constitutional: well developed, well nourished and + obese; no acute distress and not ill appearing ENMT: external ear and nose normal, oropharynx normal Respiratory: normal respiratory effort, lungs clear to auscultation Cardiovascular: Rate/Rhythm: regular rhythm and + bradycardic Heart Sounds: normal S1 and normal S2 Vessels: posterior tibial pulses present and dorsalis pedis pulses present; no JVD Extremities: no edema Gastrointestinal (Abdomen): normal bowel sounds, soft, nontender, no hepatosplenomegaly Psychiatric: A+Ox3, euthymic affect Results & Data Laboratory Results Laboratory Results - last 24 hr 08/27/18 08/27/18 08/27/18 07:39 11:25 16:07 POC Glucose 192 H 234 H 220 H 08/27/18 21:27 POC Glucose 136 H (1) Diabetes Diabetes mellitus type: type 2 Diabetes 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
[2018-08-28 05:04] LABS: Basophils # (auto) 0.02 K/uL (0-0.2); Basophils % (auto) 0.2 %; Eosinophils # (auto) 0.21 K/uL (0-0.5); Eosinophils % (auto) 2.3 %; Hematocrit (blood only) 43.3 % (37-47); Hemoglobin 14.3 g/dL (12.0-16.0); Immature Granulocytes # (auto) 0.01 K/uL (0.00-0.02); Immature Granulocytes % (auto) 0.1 %; Lymphocytes # (auto) 1.59 K/uL (1.2-3.4); Lymphocytes % (auto) 17.7 %; Mean Corpuscular Volume 90.4 fL (80-100); Monocytes % (auto) 7.8 %; Neutrophils # (auto) 6.45 K/uL (1.4-6.5); Neutrophils % (auto) 71.9 %; Platelet Count 169 K/uL (130-400); RDW Coefficient of Variation 12.7 % (11.5-14.5); RDW Standard Deviation 42.1 fL (36.4-46.3); Red Blood Count 4.79 M/uL (4.2-5.4); White Blood Count 8.98 K/uL (4.8-10.8)
[2018-08-28 05:22] LABS: Albumin Level 3.1 gm/dl (3.4-5.0); BUN Creatinine Ratio 19.1 (10-20); Bilirubin Direct 0.1 mg/dl (0-0.2); Calcium 8.8 mg/dl (8.5-10.1); Creatinine Clr Calc Pharmacy 58.2 ml/min; Est GFR (African American) 78.9; Est GFR (Non-African American) 68.1; Magnesium 1.9 mg/dl (1.8-2.4); Potassium 4.3 mmol/L (3.5-5.1)
[2018-08-28 05:24] LABS: Bilirubin,Total 0.4 mg/dl (0.2-1)
--- NOTE | 2018-08-28 07:18 | Emergency Department Note ---
Entered by Olivia Caro acting as a scribe for History of Present Illness General Chief complaint: Shortness of Breath/Dyspnea Stated complaint: SHORT OF BREATH Time Seen by Provider: 08/26/18 09:55 Source: patient History of Present Illness Onset (ago): day(s) 2 Location: chest Pain Consistency: + other (persistent) Quality: + other (shortness of breath) Relieved By: + other (Sitting up) Exacerbated By: + movement and + other (laying flat) The patient is a 83 year old female who presents to the Emergency Room with complaints of persistent shortness of breath that started two days. The patient reports that her symptoms are different than they have been in the past. She states that she is uses 3 liters of O2 at night but is not regularly on O2 at baseline. She notes that her symptoms are worsened with movement and with laying flat. The patient reports that her symptoms are relieved slightly when she sits up. She states that she took her insulin today but did not take any other medications. She notes that she is on a diuretic but did not take it today. Home Medications Home Medications Medication Instructions Recorded Confirmed Type C,E,zinc,copper [id number] 1 cap PO DAILY 08/26/18 08/26/18 History [Ocuvite Adult 50 Plus] aspirin 81 mg PO DAILY 08/26/18 08/26/18 History atorvastatin 40 mg PO HS 08/26/18 08/26/18 History buspirone 10 mg PO BID 08/26/18 08/26/18 History citalopram 20 mg PO DAILY 08/26/18 08/26/18 History clopidogrel 75 mg PO DAILY 08/26/18 08/26/18 History cyanocobalamin (vitamin B-12) 1,000 mcg PO DAILY 08/26/18 08/26/18 History [Vitamin B-12] furosemide 40 mg PO DAILY 08/26/18 08/26/18 History insulin NPH and regular human 32 unit SUBCUT QPM 08/26/18 08/26/18 History [Novolin 70-30 FlexPen U-100] insulin NPH and regular human 60 unit SUBCUT QAM 08/26/18 08/26/18 History [Novolin 70-30 FlexPen U-100] isosorbide mononitrate 30 mg PO DAILY 08/26/18 08/26/18 History lisinopril 5 mg PO DAILY 08/26/18 08/26/18 History melatonin 5 mg PO HS PRN 08/26/18 08/26/18 History topiramate 25 mg PO DAILY 08/26/18 08/26/18 History Allergies Allergy/AdvReac Type Severity Reaction Status Date / Time No Known Allergies Allergy Unverified 08/26/18 10:36 Past Med/Surg History Medical History Diabetes (Chronic) Hypertension (Chronic) Acute on chronic diastolic CHF (congestive heart failure) (Acute 06/16/14) Headache (Acute) Hypoxia (Acute) Shortness of breath (Acute) Family History Father Hypertension Social History Communication Ability: Effective Beliefs That Will Affect Care: None marital status: Current Living Situation: Spouse current occupational status: retired Other Information That Helps Us Care for You: No Feels Safe at Home: Yes Safety Concerns: Feels Safe At This Time Smoking Status: Former smoker Hx Alcohol Use: No Hx Substance Use: No Review of Systems See HPI for pertinent positives & negatives. and A total of 10 systems reviewed and were otherwise negative Physical Exam Vital Signs Vital Signs - 24 hr 08/27/18 08:45 08/27/18 09:00 08/27/18 09:01 Temperature Pulse Rate 52 L 42 L 40 L Pulse Rate from SpO2 Sensor 52 L 43 L 41 L Respiratory Rate 17 15 17 Respiratory Effort / Characteristics Respiratory Depth Respiratory Pattern Blood Pressure 145/42 H Blood Pressure Mean 76 Pulse Oximetry 96 96 96 Oxygen Delivery Method Oxygen Flow Rate 08/27/18 09:15 08/27/18 09:30 08/27/18 09:31 Temperature Pulse Rate 43 L 52 L 52 L Pulse Rate from SpO2 Sensor 47 L 52 L 52 L Respiratory Rate 14 15 22 Respiratory Effort / Characteristics Respiratory Depth Respiratory Pattern Blood Pressure 154/48 H Blood Pressure Mean 83 Pulse Oximetry 96 97 97 Oxygen Delivery Method Oxygen Flow Rate 08/27/18 09:45 08/27/18 10:00 08/27/18 10:01 Temperature Pulse Rate 53 L 43 L 39 L Pulse Rate from SpO2 Sensor 54 L 42 L 39 L Respiratory Rate 23 16 20 Respiratory Effort / Characteristics Respiratory Depth Respiratory Pattern Blood Pressure 131/41 L Blood Pressure Mean 71 Pulse Oximetry 96 97 97 Oxygen Delivery Method Oxygen Flow Rate 08/27/18 10:15 08/27/18 10:30 08/27/18 10:31 Temperature Pulse Rate 40 L 42 L 40 L Pulse Rate from SpO2 Sensor 40 L 42 L 40 L Respiratory Rate 19 16 18 Respiratory Effort / Characteristics Respiratory Depth Respiratory Pattern Blood Pressure 150/53 H Blood Pressure Mean 85 Pulse Oximetry 96 96 96 Oxygen Delivery Method Oxygen Flow Rate 08/27/18 10:45 08/27/18 11:00 08/27/18 11:01 Temperature Pulse Rate 42 L 42 L 42 L Pulse Rate from SpO2 Sensor 42 L 42 L 42 L Respiratory Rate 18 21 11 L Respiratory Effort / Characteristics Respiratory Depth Respiratory Pattern Blood Pressure 146/47 H Blood Pressure Mean 80 Pulse Oximetry 96 97 96 Oxygen Delivery Method Oxygen Flow Rate 08/27/18 11:15 08/27/18 11:30 08/27/18 11:31 Temperature Pulse Rate 41 L 50 L 42 L Pulse Rate from SpO2 Sensor 40 L 46 L 43 L Respiratory Rate 19 26 H 15 Respiratory Effort / Characteristics Respiratory Depth Respiratory Pattern Blood Pressure 167/48 H Blood Pressure Mean 87 Pulse Oximetry 96 96 96 Oxygen Delivery Method Oxygen Flow Rate 08/27/18 11:45 08/27/18 12:00 08/27/18 12:01 Temperature Pulse Rate 42 L 42 L 42 L Pulse Rate from SpO2 Sensor 42 L 42 L 41 L Respiratory Rate 26 H 19 19 Respiratory Effort / Characteristics Respiratory Depth Respiratory Pattern Blood Pressure 152/46 H Blood Pressure Mean 81 Pulse Oximetry 96 96 96 Oxygen Delivery Method Oxygen Flow Rate 08/27/18 12:15 08/27/18 12:30 08/27/18 12:31 Temperature Pulse Rate 44 L 41 L 41 L Pulse Rate from SpO2 Sensor 42 L 41 L 41 L Respiratory Rate 25 H 23 25 H Respiratory Effort / Characteristics Respiratory Depth Respiratory Pattern Blood Pressure 153/48 H Blood Pressure Mean 83 Pulse Oximetry 96 96 96 Oxygen Delivery Method Oxygen Flow Rate 08/27/18 12:45 08/27/18 13:00 08/27/18 13:01 Temperature Pulse Rate 42 L 41 L 41 L Pulse Rate from SpO2 Sensor 41 L 41 L 41 L Respiratory Rate 19 17 18 Respiratory Effort / Characteristics Respiratory Depth Respiratory Pattern Blood Pressure 144/45 H Blood Pressure Mean 78 Pulse Oximetry 96 96 96 Oxygen Delivery Method Oxygen Flow Rate 08/27/18 13:15 08/27/18 13:30 08/27/18 13:31 Temperature Pulse Rate 41 L 40 L 42 L Pulse Rate from SpO2 Sensor 41 L 40 L 42 L Respiratory Rate 17 15 17 Respiratory Effort / Characteristics Respiratory Depth Respiratory Pattern Blood Pressure 151/47 H Blood Pressure Mean 81 Pulse Oximetry 96 96 96 Oxygen Delivery Method Oxygen Flow Rate 08/27/18 13:45 08/27/18 14:00 08/27/18 14:01 Temperature Pulse Rate 41 L 42 L 41 L Pulse Rate from SpO2 Sensor 41 L 42 L 41 L Respiratory Rate 15 12 22 Respiratory Effort / Characteristics Respiratory Depth Respiratory Pattern Blood Pressure 143/57 H Blood Pressure Mean 85 Pulse Oximetry 96 97 96 Oxygen Delivery Method Oxygen Flow Rate 08/27/18 14:15 08/27/18 14:30 08/27/18 14:31 Temperature Pulse Rate 41 L 41 L 41 L Pulse Rate from SpO2 Sensor 41 L 41 L 41 L Respiratory Rate 17 18 25 H Respiratory Effort / Characteristics Respiratory Depth Respiratory Pattern Blood Pressure 148/43 H Blood Pressure Mean 78 Pulse Oximetry 97 96 96 Oxygen Delivery Method Oxygen Flow Rate 08/27/18 14:45 08/27/18 15:00 08/27/18 15:01 Temperature 36.7 C Pulse Rate 43 L 41 L 42 L Pulse Rate from SpO2 Sensor 43 L 41 L 42 L Respiratory Rate 18 15 18 Respiratory Effort / Characteristics Respiratory Depth Respiratory Pattern Blood Pressure 149/47 H Blood Pressure Mean 81 Pulse Oximetry 96 96 96 Oxygen Delivery Method Oxygen Flow Rate 08/27/18 15:15 08/27/18 15:30 08/27/18 15:31 Temperature Pulse Rate 44 L 42 L 41 L Pulse Rate from SpO2 Sensor 44 L 42 L 41 L Respiratory Rate 14 18 22 Respiratory Effort / Characteristics Respiratory Depth Respiratory Pattern Blood Pressure 150/46 H Blood Pressure Mean 80 Pulse Oximetry 94 96 96 Oxygen Delivery Method Oxygen Flow Rate 08/27/18 15:45 08/27/18 19:00 08/27/18 19:31 Temperature Pulse Rate 41 L 44 L 43 L Pulse Rate from SpO2 Sensor 41 L 44 L 43 L Respiratory Rate 21 21 23 Respiratory Effort / Characteristics Respiratory Depth Respiratory Pattern Blood Pressure 152/78 H Blood Pressure Mean 102 Pulse Oximetry 96 95 95 Oxygen Delivery Method Oxygen Flow Rate 08/27/18 20:00 08/27/18 20:01 08/27/18 20:18 Temperature 36.7 C Pulse Rate 43 L 42 L Pulse Rate from SpO2 Sensor 43 L 42 L Respiratory Rate 22 24 Respiratory Effort / Characteristics Non-Labored Spontaneous Respiratory Depth Normal Respiratory Pattern Regular Blood Pressure 164/57 H Blood Pressure Mean 92 Pulse Oximetry 96 95 Oxygen Delivery Method Nasal Cannula Oxygen Flow Rate 2 08/27/18 20:31 08/27/18 21:00 08/27/18 21:01 Temperature Pulse Rate 48 L 54 L 54 L Pulse Rate from SpO2 Sensor 47 L 54 L 54 L Respiratory Rate 17 17 28 H Respiratory Effort / Characteristics Respiratory Depth Respiratory Pattern Blood Pressure 154/104 H 174/66 H Blood Pressure Mean 120 102 Pulse Oximetry 95 95 95 Oxygen Delivery Method Oxygen Flow Rate 08/27/18 21:31 08/27/18 22:00 08/27/18 22:01 Temperature Pulse Rate 43 L 48 L 44 L Pulse Rate from SpO2 Sensor 44 L 49 L 45 L Respiratory Rate 22 21 18 Respiratory Effort / Characteristics Respiratory Depth Respiratory Pattern Blood Pressure 171/61 H 141/124 H Blood Pressure Mean 97 129 Pulse Oximetry 96 94 95 Oxygen Delivery Method Oxygen Flow Rate 08/27/18 22:31 08/27/18 23:00 08/27/18 23:01 Temperature Pulse Rate 53 L 52 L 53 L Pulse Rate from SpO2 Sensor 53 L 52 L 53 L Respiratory Rate 16 20 23 Respiratory Effort / Characteristics Respiratory Depth Respiratory Pattern Blood Pressure 157/84 H 182/54 H Blood Pressure Mean 108 96 Pulse Oximetry 94 95 94 Oxygen Delivery Method Oxygen Flow Rate 08/27/18 23:31 08/28/18 00:00 08/28/18 00:01 Temperature 36.8 C Pulse Rate 53 L 52 L 52 L Pulse Rate from SpO2 Sensor 53 L 52 L 52 L Respiratory Rate 22 20 23 Respiratory Effort / Characteristics Respiratory Depth Respiratory Pattern Blood Pressure 164/60 H 173/58 H Blood Pressure Mean 94 96 Pulse Oximetry 95 95 96 Oxygen Delivery Method Oxygen Flow Rate 08/28/18 00:32 08/28/18 01:00 08/28/18 01:02 Temperature Pulse Rate 57 L 44 L 44 L Pulse Rate from SpO2 Sensor 58 L 44 L 43 L Respiratory Rate 16 16 16 Respiratory Effort / Characteristics Respiratory Depth Respiratory Pattern Blood Pressure 138/82 150/42 H Blood Pressure Mean 100 78 Pulse Oximetry 97 95 95 Oxygen Delivery Method Oxygen Flow Rate 08/28/18 01:31 Temperature Pulse Rate 50 L Pulse Rate from SpO2 Sensor 50 L Respiratory Rate 19 Respiratory Effort / Characteristics Respiratory Depth Respiratory Pattern Blood Pressure 160/54 H Blood Pressure Mean 89 Pulse Oximetry 96 Oxygen Delivery Method Oxygen Flow Rate GENERAL: Patient is a healthy-appearing well-nourished HEAD: Normocephalic atraumatic EYES: Ocular movements intact pupils equal and react to light OROPHARYNX mucous membranes are moist no exudates present no erythema or edema present NECK: Supple no nuchal rigidity CHEST: Good equal expansion LUNGS: Clear and equal to auscultation CARDIAC: Normal S1 and S2 ABDOMEN: Soft nontender no guarding BACK: No CVA tenderness EXTREMITIES: No pain upon palpation normal muscle strength in all groups no clubbing cyanosis or edema NEURO: Patient is following commands is answering questions appropriately. Alert and oriented x3 Cranial Nerves 2-12 grossly intact Course 0955: Past medical records reviewed. The patient was evaluated in room C03, and a complete history and physical examination were performed. 1015: I updated the patient on her lab and imaging results. We administered a dose Atropine with some improvement in symptoms. 1020: I reviewed the patient's case with Dr. Lalo Madrigal, [employer] [facility] [place] will evaluate the patient for further management. 1028: I administered a second dose of Atropine and the patient showed an improvement in her condition. 1045: I spoke with the pharmacist and discussed starting the patient on an epinephrine drip as the patient continues to return to a bradycardic state after treatment with Atropine. 1052: I reviewed the patient's case with Dr. Hayes gN, Emergency Medicine [facility] [place] who suggested starting the patient on a dopamine drip in place of epine phrine. He will evaluate the patient for further management. 1100: I reviewed the patient's case with Dr. Sudeep Cid [facility] [place] who will evaluate the patient for further management. 1130: I discussed the results and findings with the patient. She verbalized agreement of the treatment plan. The patient will be evaluated for further management and care. Consultations Consultation #1: I reviewed the patient's case with Dr. Lalo Madrigal, [employer] [facility] [place] He will evaluate the patient for further management. Time: 10:20 Consultation #2: I reviewed the patient's case with Dr. Hayes Ng, Emergency Medicine [facility] [place] who suggested starting the patient on a dopamine drip in place of epinephrine. He will evaluate the patient for further management. Time: 10:52 Consultation #3: I reviewed the patient's case with Dr. Sudeep Cid [facility] [place] who will evaluate the patient for further management. Time: 11:00 Administered Medications Aspirin (Ecotrin Ectab) 81 mg PO DAILY MAEGAN Stop: 09/26/18 08:59 Last Admin: 08/28/18 07:29 Dose: 81 mg Documented by: [id number] Admin: 08/27/18 07:40 Dose: 81 mg Documented by: [id number] Atorvastatin Calcium (Lipitor) 40 mg PO HS MAEGAN Stop: 09/25/18 20:59 Last Admin: 08/27/18 21:39 Dose: 40 mg Documented by: [id number] Admin: 08/26/18 21:41 Dose: 40 mg Documented by: [id number] Buspirone HCl (Buspar) 10 mg PO BID MAEGAN Stop: 09/25/18 20:59 Last Admin: 08/28/18 07:29 Dose: 10 mg Documented by: [id number] Admin: 08/27/18 21:39 Dose: 10 mg Documented by: [id number] Admin: 08/27/18 07:40 Dose: 10 mg Documented by: [id number] Admin: 08/26/18 21:41 Dose: 10 mg Documented by: [id number] Citalopram Hydrobromide (Celexa) 20 mg PO DAILY MAEGAN Stop: 09/26/18 08:59 Last Admin: 08/28/18 07:29 Dose: 20 mg Documented by: [id number] Admin: 08/27/18 07:40 Dose: 20 mg Documented by: [id number] Clopidogrel Bisulfate (Plavix) 75 mg PO DAILY MAEGAN Stop: 09/26/18 08:59 Last Admin: 08/28/18 07:29 Dose: 75 mg Documented by: [id number] Admin: 08/27/18 07:40 Dose: 75 mg Documented by: [id number] Dextrose (Dextrose 50%) 25 - 50 ml IV UD PRN; Protocol PRN Reason: Hypoglycemia Protocol Stop: 09/25/18 12:57 Last Admin: 08/26/18 14:06 Dose: 50 ml Documented by: [id number] Enoxaparin Sodium (Lovenox) 40 mg SQ Q24H MAEGAN Stop: 09/25/18 13:59 Last Admin: 08/27/18 13:00 Dose: 40 mg Documented by: [id number] Admin: 08/26/18 16:35 Dose: 40 mg Documented by: [id number] Dopamine HCl/Dextrose (Dopamine / D5w) 400 mg in 250 mls @ 20.97 mls/hr IV .[id number] [facility]; Protocol Stop: 09/25/18 10:59 Last Titration: 08/28/18 08:30 Dose: 4 mcg/kg/min, 14 mls/hr Documented by: [id number] Titration: 08/28/18 06:57 Dose: 6 mcg/kg/min, 21 mls/hr Documented by: [id number] Cosigned by: [id number] Admin: 08/28/18 02:21 Dose: 6 mcg/kg/min, 21 mls/hr Documented by: [id number] Cosigned by: [id number] Titration: 08/28/18 00:55 Dose: 0 mcg/kg/min, 0 mls/hr Documented by: [id number] Cosigned by: [id number] Titration: 08/27/18 18:59 Dose: 6 mcg/kg/min, 21 mls/hr Documented by: [id number] Cosigned by: [id number] Admin: 08/27/18 13:00 Dose: 6 mcg/kg/min, 21 mls/hr Documented by: [id number] Cosigned by: [id number] Titration: 08/27/18 13:00 Dose: 6 mcg/kg/min, 21 mls/hr Documented by: [id number] Cosigned by: [id number] Titration: 08/27/18 07:04 Dose: 6 mcg/kg/min, 21 mls/hr Documented by: [id number] Cosigned by: [id number] Admin: 08/27/18 02:04 Dose: 6 mcg/kg/min, 21 mls/hr Documented by: [id number] Cosigned by: [id number] Titration: 08/27/18 01:18 Dose: 0 mcg/kg/min, 0 mls/hr Documented by: [id number] Cosigned by: [id number] Titration: 08/27/18 00:30 Dose: 6 mcg/kg/min, 21 mls/hr Documented by: [id number] Titration: 08/26/18 19:01 Dose: 5 mcg/kg/min, 17.5 mls/hr Documented by: [id number] Cosigned by: [id number] Titration: 08/26/18 11:51 Dose: 5 mcg/kg/min, 17.5 mls/hr Documented by: [id number] Admin: 08/26/18 11:10 Dose: 5 mcg/kg/min, 17.5 mls/hr Documented by: [id number] Cosigned by: [id number] Sodium Chloride (Nss 1000ml) 1,000 mls @ 80 mls/hr IV .[id number] [facility] Stop: 09/27/18 00:00 Last Infusion: 08/28/18 06:57 Dose: 80 mls/hr Documented by: [id number] Admin: 08/28/18 01:15 Dose: 80 mls/hr Documented by: [id number] Insulin Aspart (Novolog Flexpen) 0 units SC ACHS [facility] Stop: 09/25/18 12:57 Last Admin: 08/28/18 07:46 Dose: 1 units Documented by: [id number] Cosigned by: [id number] Admin: 08/27/18 21:40 Dose: Not Given Documented by: [id number] Cosigned by: [id number] Admin: 08/27/18 16:30 Dose: 12 units Documented by: [id number] Cosigned by: [id number] Admin: 08/27/18 11:47 Dose: 4 units Documented by: [id number] Cosigned by: [id number] Admin: 08/27/18 08:56 Dose: 3 units Documented by: [id number] Cosigned by: [id number] Admin: 08/26/18 21:39 Dose: Not Given Documented by: [id number] Cosigned by: [id number] Admin: 08/26/18 16:34 Dose: Not Given Documented by: [id number] Cosigned by: [id number] Admin: 08/26/18 14:04 Dose: Not Given Documented by: [id number] Cosigned by: [id number] Insulin Glargine (Lantus Solostar Pen) 20 units SC BID MAEGAN Stop: 09/26/18 12:14 Last Admin: 08/27/18 21:40 Dose: Not Given Documented by: [id number] Cosigned by: [id number] Admin: 08/27/18 13:01 Dose: 20 units Documented by: [id number] Cosigned by: [id number] Insulin Glargine (Lantus Solostar Pen) 10 units SC BID ONE Stop: 08/28/18 09:01 Last Admin: 08/28/18 08:34 Dose: 10 units Documented by: [id number] Cosigned by: [id number] Topiramate (Topamax) 25 mg PO DAILY [facility] Stop: 09/26/18 08:59 Last Admin: 08/28/18 07:29 Dose: 25 mg Documented by: [id number] Admin: 08/27/18 07:40 Dose: 25 mg Documented by: [id number] Discontinued Medications Atropine Sulfate (Atropine Sulfate 1mg/Ml) Confirm Administered Dose 1 mg .ROUTE .STK-MED ONE Stop: 08/26/18 10:14 Last Admin: 08/26/18 10:14 Dose: 0.5 mg Documented by: [id number] Atropine Sulfate (Atropine Sulfate) 0.5 mg IV NOW STA Stop: 08/26/18 10:36 Last Admin: 08/26/18 10:27 Dose: 0.5 mg Documented by: [id number] Atropine Sulfate (Atropine Sulfate) 0.5 mg IV NOW STA Stop: 08/26/18 10:36 Last Admin: 08/26/18 10:41 Dose: Not Given Documented by: [id number] Potassium Chloride/Sodium Chloride (Normal Saline W/20 Meq Kcl) 20 meq in 1,000 mls @ 80 mls/hr IV .[id number] MAEGAN Stop: 09/25/18 13:04 Last Infusion: 08/27/18 09:55 Dose: 0 mls/hr Documented by: [id number] Admin: 08/27/18 02:06 Dose: 80 mls/hr Documented by: [id number] Infusion: 08/27/18 02:06 Dose: 0 mls/hr Documented by: [id number] Infusion: 08/26/18 19:01 Dose: 80 mls/hr Documented by: [id number] Admin: 08/26/18 14:06 Dose: 80 mls/hr Documented by: [id number] Medical Decision Making Differential Diagnosis Differential diagnosis: Etiologies such as shingles, musculoskeletal pain, pericarditis, myocarditis, c ardiac ischemia, pericardial tamponade, pneumonia, pneumothorax, pleural effusion, hemothorax, pleurisy, aortic pathology, pulmonary embolism, intra- abdominal process, as well as others were considered. Medical Records Attestation: I reviewed the patient's medical records. Home Medications Current Medication List: was personally reviewed by me Laboratory Data Attestation: I reviewed the patient's lab results. Result diagrams: 08/28/18 04:54 08/28/18 04:54 Lab Results 08/26/18 08/26/18 08/26/18 Range/Units 10:10 10:10 10:10 WBC 5.72 (4.8-10.8) K/uL RBC 4.49 (4.2-5.4) M/uL Hgb 13.4 (12.0-16.0) g/dL POC Hgb (12.0-16.0) g/dl Hct 41.9 (37-47) % POC Hct (37-47) % MCV 93.3 (80-100) fL MCH 29.8 (25-34) pg MCHC 32.0 (32-36) g/dL RDW Std Deviation 46.7 H (36.4-46.3) fL RDW Coeff of Chun 13.6 (11.5-14.5) % Plt Count 169 (130-400) K/uL MPV 9.9 (7.4-10.4) fL Immature Gran % (Auto) 0.2 % Neut % (Auto) 58.8 % Lymph % (Auto) 29.0 % [place] % (Auto) 8.7 % Eos % (Auto) 3.1 % Baso % (Auto) 0.2 % Immature Gran # (Auto) 0.01 (0.00-0.02) K/uL Neut # (Auto) 3.36 (1.4-6.5) K/uL Lymph # (Auto) 1.66 (1.2-3.4) K/uL [place] # (Auto) 0.50 (0.11-0.59) K/uL Eos # (Auto) 0.18 (0-0.5) K/uL Baso # (Auto) 0.01 (0-0.2) K/uL PT 10.3 (9.0-12.0) Seconds INR 1.0 (0.9-1.1) APTT 24.5 (21.0-31.0) Seconds PTT Ratio 0.9 POC Sodium (135-144) mEq/L Sodium 146 H (136-145) mmol/L POC Potassium (3.3-5.0) mEq/L Potassium 4.1 (3.5-5.1) mmol/L POC Chloride (101-112) mEq/L Chloride 113 H (98-107) mmol/L Carbon Dioxide 31 (21-32) mmol/L POC Total CO2 (24-31) mEq/l Anion Gap 2.0 L (3-11) POC Anion Gap (16-25) mmol/L POC BUN (7-18) mg/dl BUN 16 (7-18) mg/dl Creatinine 0.87 (0.6-1.2) mg/dl POC Creatinine (0.6-1.3) mg/dl Est Cr Clr Drug Dosing Not Reportable Est GFR ( Amer) 72.4 Est GFR (Non-Af Amer) 62.5 BUN/Creatinine Ratio 18.0 (10-20) Glucose 102 H (70-99) mg/dl POC Glucose (70-99) POC Glucose (other) (70-99) mg/dl Estimat Average Glucose mg/dl Hemoglobin A1c (4.5-5.6) % Lactate (0.4-2.0) mmol/L Calcium 8.8 (8.5-10.1) mg/dl POC Ioniz Calcium Abhilash (1.12-1.32) mmol/l Phosphorus (2.5-4.9) mg/dl Magnesium (1.8-2.4) mg/dl Total Bilirubin 0.2 (0.2-1) mg/dl Direct Bilirubin (0-0.2) mg/dl AST 18 (15-37) U/L ALT 13 (12-78) U/L Alkaline Phosphatase 124 H (45-117) U/L Total Creatine Kinase 104 (26-192) U/L CK-MB (CK-2) 4.9 H (0.5-3.6) ng/ml CK/CKMB % Calc 4.7 H (0-3.0) Troponin I 0.025 (0-0.045) ng/ml NT-Pro-B Natriuret Pep 922 (0-1800) pg/ml Total Protein 6.6 (6.4-8.2) gm/dl Albumin 3.0 L (3.4-5.0) gm/dl Globulin 3.6 (2.5-4.0) gm/dl Albumin/Globulin Ratio 0.8 L (0.9-2) Lipase 115 (73-393) U/L TSH (0.300-4.500) uIu/ml Nasal Screen MRSA (PCR) (Negative) Lyme Disease IgG Ab (Negative) Lyme Disease IgM Ab (Negative) 08/26/18 08/26/18 08/26/18 Range/Units 10:10 10:10 10:10 WBC (4.8-10.8) K/uL RBC (4.2-5.4) M/uL Hgb (12.0-16.0) g/dL POC Hgb (12.0-16.0) g/dl Hct (37-47) % POC Hct (37-47) % MCV (80-100) fL MCH (25-34) pg MCHC (32-36) g/dL RDW Std Deviation (36.4-46.3) fL RDW Coeff of Chun (11.5-14.5) % Plt Count (130-400) K/uL MPV (7.4-10.4) fL Immature Gran % (Auto) % Neut % (Auto) % Lymph % (Auto) % [place] % (Auto) % Eos % (Auto) % Baso % (Auto) % Immature Gran # (Auto) (0.00-0.02) K/uL Neut # (Auto) (1.4-6.5) K/uL Lymph # (Auto) (1.2-3.4) K/uL [place] # (Auto) (0.11-0.59) K/uL Eos # (Auto) (0-0.5) K/uL Baso # (Auto) (0-0.2) K/uL PT (9.0-12.0) Seconds INR (0.9-1.1) APTT (21.0-31.0) Seconds PTT Ratio POC Sodium (135-144) mEq/L Sodium (136-145) mmol/L POC Potassium (3.3-5.0) mEq/L Potassium (3.5-5.1) mmol/L POC Chloride (101-112) mEq/L Chloride (98-107) mmol/L Carbon Dioxide (21-32) mmol/L POC Total CO2 (24-31) mEq/l Anion Gap (3-11) POC Anion Gap (16-25) mmol/L POC BUN (7-18) mg/dl BUN (7-18) mg/dl Creatinine (0.6-1.2) mg/dl POC Creatinine (0.6-1.3) mg/dl Est Cr Clr Drug Dosing Est GFR ( Amer) Est GFR (Non-Af Amer) BUN/Creatinine Ratio (10-20) Glucose (70-99) mg/dl POC Glucose (70-99) POC Glucose (other) (70-99) mg/dl Estimat Average Glucose mg/dl Hemoglobin A1c (4.5-5.6) % Lactate (0.4-2.0) mmol/L Calcium (8.5-10.1) mg/dl POC Ioniz Calcium Abhilash (1.12-1.32) mmol/l Phosphorus 2.6 (2.5-4.9) mg/dl Magnesium 2.1 (1.8-2.4) mg/dl Total Bilirubin (0.2-1) mg/dl Direct Bilirubin (0-0.2) mg/dl AST (15-37) U/L ALT (12-78) U/L Alkaline Phosphatase (45-117) U/L Total Creatine Kinase (26-192) U/L CK-MB (CK-2) (0.5-3.6) ng/ml CK/CKMB % Calc (0-3.0) Troponin I (0-0.045) ng/ml NT-Pro-B Natriuret Pep (0-1800) pg/ml Total Protein (6.4-8.2) gm/dl Albumin (3.4-5.0) gm/dl Globulin (2.5-4.0) gm/dl Albumin/Globulin Ratio (0.9-2) Lipase (73-393) U/L TSH 1.280 Cancelled (0.300-4.500) uIu/ml Nasal Screen MRSA (PCR) (Negative) Lyme Disease IgG Ab Negative (Negative) Lyme Disease IgM Ab Negative (Negative) 08/26/18 08/26/18 08/26/18 Range/Units 10:10 10:19 12:35 WBC (4.8-10.8) K/uL RBC (4.2-5.4) M/uL Hgb (12.0-16.0) g/dL POC Hgb 13.3 (12.0-16.0) g/dl Hct (37-47) % POC Hct 39 (37-47) % MCV (80-100) fL MCH (25-34) pg MCHC (32-36) g/dL RDW Std Deviation (36.4-46.3) fL RDW Coeff of Chun (11.5-14.5) % Plt Count (130-400) K/uL MPV (7.4-10.4) fL Immature Gran % (Auto) % Neut % (Auto) % Lymph % (Auto) % [place] % (Auto) % Eos % (Auto) % Baso % (Auto) % Immature Gran # (Auto) (0.00-0.02) K/uL Neut # (Auto) (1.4-6.5) K/uL Lymph # (Auto) (1.2-3.4) K/uL [place] # (Auto) (0.11-0.59) K/uL Eos # (Auto) (0-0.5) K/uL Baso # (Auto) (0-0.2) K/uL PT (9.0-12.0) Seconds INR (0.9-1.1) APTT (21.0-31.0) Seconds PTT Ratio POC Sodium 146 H (135-144) mEq/L Sodium (136-145) mmol/L POC Potassium 4.0 (3.3-5.0) mEq/L Potassium (3.5-5.1) mmol/L POC Chloride 107 (101-112) mEq/L Chloride (98-107) mmol/L Carbon Dioxide (21-32) mmol/L POC Total CO2 28 (24-31) mEq/l Anion Gap (3-11) POC Anion Gap 15.0 L (16-25) mmol/L POC BUN 16 (7-18) mg/dl BUN (7-18) mg/dl Creatinine (0.6-1.2) mg/dl POC Creatinine 0.9 (0.6-1.3) mg/dl Est Cr Clr Drug Dosing Est GFR ( Amer) Est GFR (Non-Af Amer) BUN/Creatinine Ratio (10-20) Glucose (70-99) mg/dl POC Glucose (70-99) POC Glucose (other) 101 H (70-99) mg/dl Estimat Average Glucose 128 mg/dl Hemoglobin A1c 6.1 H (4.5-5.6) % Lactate (0.4-2.0) mmol/L Calcium (8.5-10.1) mg/dl POC Ioniz Calcium Abhilash 1.26 (1.12-1.32) mmol/l Phosphorus (2.5-4.9) mg/dl Magnesium (1.8-2.4) mg/dl Total Bilirubin (0.2-1) mg/dl Direct Bilirubin (0-0.2) mg/dl AST (15-37) U/L ALT (12-78) U/L Alkaline Phosphatase (45-117) U/L Total Creatine Kinase (26-192) U/L CK-MB (CK-2) (0.5-3.6) ng/ml CK/CKMB % Calc (0-3.0) Troponin I (0-0.045) ng/ml NT-Pro-B Natriuret Pep (0-1800) pg/ml Total Protein (6.4-8.2) gm/dl Albumin (3.4-5.0) gm/dl Globulin (2.5-4.0) gm/dl Albumin/Globulin Ratio (0.9-2) Lipase (73-393) U/L TSH (0.300-4.500) uIu/ml Nasal Screen MRSA (PCR) Negative (Negative) Lyme Disease IgG Ab (Negative) Lyme Disease IgM Ab (Negative) 08/26/18 08/26/18 08/26/18 Range/Units 12:40 14:02 14:03 WBC (4.8-10.8) K/uL RBC (4.2-5.4) M/uL Hgb (12.0-16.0) g/dL POC Hgb (12.0-16.0) g/dl Hct (37-47) % POC Hct (37-47) % MCV (80-100) fL MCH (25-34) pg MCHC (32-36) g/dL RDW Std Deviation (36.4-46.3) fL RDW Coeff of Chun (11.5-14.5) % Plt Count (130-400) K/uL MPV (7.4-10.4) fL Immature Gran % (Auto) % Neut % (Auto) % Lymph % (Auto) % [place] % (Auto) % Eos % (Auto) % Baso % (Auto) % Immature Gran # (Auto) (0.00-0.02) K/uL Neut # (Auto) (1.4-6.5) K/uL Lymph # (Auto) (1.2-3.4) K/uL [place] # (Auto) (0.11-0.59) K/uL Eos # (Auto) (0-0.5) K/uL Baso # (Auto) (0-0.2) K/uL PT (9.0-12.0) Seconds INR (0.9-1.1) APTT (21.0-31.0) Seconds PTT Ratio POC Sodium (135-144) mEq/L Sodium (136-145) mmol/L POC Potassium (3.3-5.0) mEq/L Potassium (3.5-5.1) mmol/L POC Chloride (101-112) mEq/L Chloride (98-107) mmol/L Carbon Dioxide (21-32) mmol/L POC Total CO2 (24-31) mEq/l Anion Gap (3-11) POC Anion Gap (16-25) mmol/L POC BUN (7-18) mg/dl BUN (7-18) mg/dl Creatinine (0.6-1.2) mg/dl POC Creatinine (0.6-1.3) mg/dl Est Cr Clr Drug Dosing Est GFR ( Amer) Est GFR (Non-Af Amer) BUN/Creatinine Ratio (10-20) Glucose (70-99) mg/dl POC Glucose 51 L* 54 L* (70-99) POC Glucose (other) (70-99) mg/dl Estimat Average Glucose mg/dl Hemoglobin A1c (4.5-5.6) % Lactate 0.5 (0.4-2.0) mmol/L Calcium (8.5-10.1) mg/dl POC Ioniz Calcium Abhilash (1.12-1.32) mmol/l Phosphorus (2.5-4.9) mg/dl Magnesium (1.8-2.4) mg/dl Total Bilirubin (0.2-1) mg/dl Direct Bilirubin (0-0.2) mg/dl AST (15-37) U/L ALT (12-78) U/L Alkaline Phosphatase (45-117) U/L Total Creatine Kinase (26-192) U/L CK-MB (CK-2) (0.5-3.6) ng/ml CK/CKMB % Calc (0-3.0) Troponin I (0-0.045) ng/ml NT-Pro-B Natriuret Pep (0-1800) pg/ml Total Protein (6.4-8.2) gm/dl Albumin (3.4-5.0) gm/dl Globulin (2.5-4.0) gm/dl Albumin/Globulin Ratio (0.9-2) Lipase (73-393) U/L TSH (0.300-4.500) uIu/ml Nasal Screen MRSA (PCR) (Negative) Lyme Disease IgG Ab (Negative) Lyme Disease IgM Ab (Negative) 08/26/18 08/26/18 08/26/18 Range/Units 14:18 15:50 15:58 WBC (4.8-10.8) K/uL RBC (4.2-5.4) M/uL Hgb (12.0-16.0) g/dL POC Hgb (12.0-16.0) g/dl Hct (37-47) % POC Hct (37-47) % MCV (80-100) fL MCH (25-34) pg MCHC (32-36) g/dL RDW Std Deviation (36.4-46.3) fL RDW Coeff of Chun (11.5-14.5) % Plt Count (130-400) K/uL MPV (7.4-10.4) fL Immature Gran % (Auto) % Neut % (Auto) % Lymph % (Auto) % [place] % (Auto) % Eos % (Auto) % Baso % (Auto) % Immature Gran # (Auto) (0.00-0.02) K/uL Neut # (Auto) (1.4-6.5) K/uL Lymph # (Auto) (1.2-3.4) K/uL [place] # (Auto) (0.11-0.59) K/uL Eos # (Auto) (0-0.5) K/uL Baso # (Auto) (0-0.2) K/uL PT (9.0-12.0) Seconds INR (0.9-1.1) APTT (21.0-31.0) Seconds PTT Ratio POC Sodium (135-144) mEq/L Sodium (136-145) mmol/L POC Potassium (3.3-5.0) mEq/L Potassium (3.5-5.1) mmol/L POC Chloride (101-112) mEq/L Chloride (98-107) mmol/L Carbon Dioxide (21-32) mmol/L POC Total CO2 (24-31) mEq/l Anion Gap (3-11) POC Anion Gap (16-25) mmol/L POC BUN (7-18) mg/dl BUN (7-18) mg/dl Creatinine (0.6-1.2) mg/dl POC Creatinine (0.6-1.3) mg/dl Est Cr Clr Drug Dosing Est GFR ( Amer) Est GFR (Non-Af Amer) BUN/Creatinine Ratio (10-20) Glucose (70-99) mg/dl POC Glucose 124 H 119 H (70-99) POC Glucose (other) (70-99) mg/dl Estimat Average Glucose mg/dl Hemoglobin A1c (4.5-5.6) % Lactate (0.4-2.0) mmol/L Calcium (8.5-10.1) mg/dl POC Ioniz Calcium Abhilash (1.12-1.32) mmol/l Phosphorus (2.5-4.9) mg/dl Magnesium (1.8-2.4) mg/dl Total Bilirubin (0.2-1) mg/dl Direct Bilirubin (0-0.2) mg/dl AST (15-37) U/L ALT (12-78) U/L Alkaline Phosphatase (45-117) U/L Total Creatine Kinase (26-192) U/L CK-MB (CK-2) (0.5-3.6) ng/ml CK/CKMB % Calc (0-3.0) Troponin I 0.026 (0-0.045) ng/ml NT-Pro-B Natriuret Pep (0-1800) pg/ml Total Protein (6.4-8.2) gm/dl Albumin (3.4-5.0) gm/dl Globulin (2.5-4.0) gm/dl Albumin/Globulin Ratio (0.9-2) Lipase (73-393) U/L TSH (0.300-4.500) uIu/ml Nasal Screen MRSA (PCR) (Negative) Lyme Disease IgG Ab (Negative) Lyme Disease IgM Ab (Negative) 08/26/18 08/27/18 08/27/18 Range/Units 20:43 07:39 11:25 WBC (4.8-10.8) K/uL RBC (4.2-5.4) M/uL Hgb (12.0-16.0) g/dL POC Hgb (12.0-16.0) g/dl Hct (37-47) % POC Hct (37-47) % MCV (80-100) fL MCH (25-34) pg MCHC (32-36) g/dL RDW Std Deviation (36.4-46.3) fL RDW Coeff of Chun (11.5-14.5) % Plt Count (130-400) K/uL MPV (7.4-10.4) fL Immature Gran % (Auto) % Neut % (Auto) % Lymph % (Auto) % [place] % (Auto) % Eos % (Auto) % Baso % (Auto) % Immature Gran # (Auto) (0.00-0.02) K/uL Neut # (Auto) (1.4-6.5) K/uL Lymph # (Auto) (1.2-3.4) K/uL [place] # (Auto) (0.11-0.59) K/uL Eos # (Auto) (0-0.5) K/uL Baso # (Auto) (0-0.2) K/uL PT (9.0-12.0) Seconds INR (0.9-1.1) APTT (21.0-31.0) Seconds PTT Ratio POC Sodium (135-144) mEq/L Sodium (136-145) mmol/L POC Potassium (3.3-5.0) mEq/L Potassium (3.5-5.1) mmol/L POC Chloride (101-112) mEq/L Chloride (98-107) mmol/L Carbon Dioxide (21-32) mmol/L POC Total CO2 (24-31) mEq/l Anion Gap (3-11) POC Anion Gap (16-25) mmol/L POC BUN (7-18) mg/dl BUN (7-18) mg/dl Creatinine (0.6-1.2) mg/dl POC Creatinine (0.6-1.3) mg/dl Est Cr Clr Drug Dosing Est GFR ( Amer) Est GFR (Non-Af Amer) BUN/Creatinine Ratio (10-20) Glucose (70-99) mg/dl POC Glucose 109 H 192 H 234 H (70-99) POC Glucose (other) (70-99) mg/dl Estimat Average Glucose mg/dl Hemoglobin A1c (4.5-5.6) % Lactate (0.4-2.0) mmol/L Calcium (8.5-10.1) mg/dl POC Ioniz Calcium Abhilash (1.12-1.32) mmol/l Phosphorus (2.5-4.9) mg/dl Magnesium (1.8-2.4) mg/dl Total Bilirubin (0.2-1) mg/dl Direct Bilirubin (0-0.2) mg/dl AST (15-37) U/L ALT (12-78) U/L Alkaline Phosphatase (45-117) U/L Total Creatine Kinase (26-192) U/L CK-MB (CK-2) (0.5-3.6) ng/ml CK/CKMB % Calc (0-3.0) Troponin I (0-0.045) ng/ml NT-Pro-B Natriuret Pep (0-1800) pg/ml Total Protein (6.4-8.2) gm/dl Albumin (3.4-5.0) gm/dl Globulin (2.5-4.0) gm/dl Albumin/Globulin Ratio (0.9-2) Lipase (73-393) U/L TSH (0.300-4.500) uIu/ml Nasal Screen MRSA (PCR) (Negative) Lyme Disease IgG Ab (Negative) Lyme Disease IgM Ab (Negative) 08/27/18 08/27/18 08/28/18 Range/Units 16:07 21:27 04:54 WBC 8.98 (4.8-10.8) K/uL RBC 4.79 (4.2-5.4) M/uL Hgb 14.3 (12.0-16.0) g/dL POC Hgb (12.0-16.0) g/dl Hct 43.3 (37-47) % POC Hct (37-47) % MCV 90.4 (80-100) fL MCH 29.9 (25-34) pg MCHC 33.0 (32-36) g/dL RDW Std Deviation 42.1 (36.4-46.3) fL RDW Coeff of Chun 12.7 (11.5-14.5) % Plt Count 169 (130-400) K/uL MPV 10.0 (7.4-10.4) fL Immature Gran % (Auto) 0.1 % Neut % (Auto) 71.9 % Lymph % (Auto) 17.7 % [place] % (Auto) 7.8 % Eos % (Auto) 2.3 % Baso % (Auto) 0.2 % Immature Gran # (Auto) 0.01 (0.00-0.02) K/uL Neut # (Auto) 6.45 (1.4-6.5) K/uL Lymph # (Auto) 1.59 (1.2-3.4) K/uL [place] # (Auto) 0.70 H (0.11-0.59) K/uL Eos # (Auto) 0.21 (0-0.5) K/uL Baso # (Auto) 0.02 (0-0.2) K/uL PT (9.0-12.0) Seconds INR (0.9-1.1) APTT (21.0-31.0) Seconds PTT Ratio POC Sodium (135-144) mEq/L Sodium (136-145) mmol/L POC Potassium (3.3-5.0) mEq/L Potassium (3.5-5.1) mmol/L POC Chloride (101-112) mEq/L Chloride (98-107) mmol/L Carbon Dioxide (21-32) mmol/L POC Total CO2 (24-31) mEq/l Anion Gap (3-11) POC Anion Gap (16-25) mmol/L POC BUN (7-18) mg/dl BUN (7-18) mg/dl Creatinine (0.6-1.2) mg/dl POC Creatinine (0.6-1.3) mg/dl Est Cr Clr Drug Dosing Est GFR ( Amer) Est GFR (Non-Af Amer) BUN/Creatinine Ratio (10-20) Glucose (70-99) mg/dl POC Glucose 220 H 136 H (70-99) POC Glucose (other) (70-99) mg/dl Estimat Average Glucose mg/dl Hemoglobin A1c (4.5-5.6) % Lactate (0.4-2.0) mmol/L Calcium (8.5-10.1) mg/dl POC Ioniz Calcium Abhilash (1.12-1.32) mmol/l Phosphorus (2.5-4.9) mg/dl Magnesium (1.8-2.4) mg/dl Total Bilirubin (0.2-1) mg/dl Direct Bilirubin (0-0.2) mg/dl AST (15-37) U/L ALT (12-78) U/L Alkaline Phosphatase (45-117) U/L Total Creatine Kinase (26-192) U/L CK-MB (CK-2) (0.5-3.6) ng/ml CK/CKMB % Calc (0-3.0) Troponin I (0-0.045) ng/ml NT-Pro-B Natriuret Pep (0-1800) pg/ml Total Protein (6.4-8.2) gm/dl Albumin (3.4-5.0) gm/dl Globulin (2.5-4.0) gm/dl Albumin/Globulin Ratio (0.9-2) Lipase (73-393) U/L TSH (0.300-4.500) uIu/ml Nasal Screen MRSA (PCR) (Negative) Lyme Disease IgG Ab (Negative) Lyme Disease IgM Ab (Negative) 08/28/18 08/28/18 Range/Units 04:54 07:41 WBC (4.8-10.8) K/uL RBC (4.2-5.4) M/uL Hgb (12.0-16.0) g/dL POC Hgb (12.0-16.0) g/dl Hct (37-47) % POC Hct (37-47) % MCV (80-100) fL MCH (25-34) pg MCHC (32-36) g/dL RDW Std Deviation (36.4-46.3) fL RDW Coeff of Chun (11.5-14.5) % Plt Count (130-400) K/uL MPV (7.4-10.4) fL Immature Gran % (Auto) % Neut % (Auto) % Lymph % (Auto) % [place] % (Auto) % Eos % (Auto) % Baso % (Auto) % Immature Gran # (Auto) (0.00-0.02) K/uL Neut # (Auto) (1.4-6.5) K/uL Lymph # (Auto) (1.2-3.4) K/uL [place] # (Auto) (0.11-0.59) K/uL Eos # (Auto) (0-0.5) K/uL Baso # (Auto) (0-0.2) K/uL PT (9.0-12.0) Seconds INR (0.9-1.1) APTT (21.0-31.0) Seconds PTT Ratio POC Sodium (135-144) mEq/L Sodium 142 (136-145) mmol/L POC Potassium (3.3-5.0) mEq/L Potassium 4.3 (3.5-5.1) mmol/L POC Chloride (101-112) mEq/L Chloride 109 H (98-107) mmol/L Carbon Dioxide 28 (21-32) mmol/L POC Total CO2 (24-31) mEq/l Anion Gap 5.0 (3-11) POC Anion Gap (16-25) mmol/L POC BUN (7-18) mg/dl BUN 15 (7-18) mg/dl Creatinine 0.81 (0.6-1.2) mg/dl POC Creatinine (0.6-1.3) mg/dl Est Cr Clr Drug Dosing 58.2 Est GFR ( Amer) 78.9 Est GFR (Non-Af Amer) 68.1 BUN/Creatinine Ratio 19.1 (10-20) Glucose 172 H (70-99) mg/dl POC Glucose 177 H (70-99) POC Glucose (other) (70-99) mg/dl Estimat Average Glucose mg/dl Hemoglobin A1c (4.5-5.6) % Lactate (0.4-2.0) mmol/L Calcium 8.8 (8.5-10.1) mg/dl POC Ioniz Calcium Abhilash (1.12-1.32) mmol/l Phosphorus (2.5-4.9) mg/dl Magnesium 1.9 (1.8-2.4) mg/dl Total Bilirubin 0.4 (0.2-1) mg/dl Direct Bilirubin 0.1 (0-0.2) mg/dl AST 10 L (15-37) U/L ALT 11 L (12-78) U/L Alkaline Phosphatase 132 H (45-117) U/L Total Creatine Kinase (26-192) U/L CK-MB (CK-2) (0.5-3.6) ng/ml CK/CKMB % Calc (0-3.0) Troponin I (0-0.045) ng/ml NT-Pro-B Natriuret Pep (0-1800) pg/ml Total Protein 7.0 (6.4-8.2) gm/dl Albumin 3.1 L (3.4-5.0) gm/dl Globulin (2.5-4.0) gm/dl Albumin/Globulin Ratio (0.9-2) Lipase (73-393) U/L TSH (0.300-4.500) uIu/ml Nasal Screen MRSA (PCR) (Negative) Lyme Disease IgG Ab (Negative) Lyme Disease IgM Ab (Negative) Imaging Data Radiologist's Impression: Radiology results as stated below per my review and the radiologist's interpretation: XR chest 1V portable CLINICAL HISTORY: Chest Pain COMPARISON STUDY: Chest CT 09/14/2015. FINDINGS: Lung volumes are normal. There is no pneumothorax or pleural effusion. There is no consolidation or evidence for pulmonary edema. Moderate cardiomegaly is unchanged. IMPRESSION: 1. No acute cardiopulmonary findings. 2. Stable cardiomegaly. Electronically signed by: Yobani Harper M.D. 08/26/2018 10:10 AM ECG Data Attestation: I personally reviewed and interpreted this ECG as follows: Indication: SOB/dyspnea Rate (beats per minute): 58 Rhythm: sinus bradycardia and other (idioventricular rhythm) Findings: + RBBB; no PAC, no PVC, no ST depression, no ST elevation, no acute ischemic change and no ectopy Blood Pressure Blood Pressure Findings: Normal blood pressure MDM Narrative This is an 83-year-old female who presents emergency department complaining of shortness of breath that is been ongoing for the past 3 days. The patient reports she feels incredibly short of breath when she lies back. Upon arrival to the emergency department her pulse is 38 and there were no P waves present on her EKG. For this reason the patient was given atropine 0.5 x 3. Repeat examination revealed improvement the patient's symptoms. After some time the atropine would wear off and the patient would bradycardia back down. At this point she was placed on a dopamine drip which caused the patient to convert to a normal sinus rhythm. She was discussed with cardiology as well as critical care team and was admitted to the hospitalist service. Impression & Plan Dyspnea, Bradycardia Critical Care Time I have personally spent greater than 90 minutes of critical care time in the direct management of this patient. This includes bedside care, interpretation of diagnostic studies, and testing, discussion with consultants, patient, and family members, and other required patient management activities. This 90 minutes is in excess of all separately billable procedures. Critical Care Time: Yes Total Critical Care Time: 90 Discharge Plan Visit Data *Final* Discharge Date/Time: 08/26/18 12:10 Chief Complaint: Shortness of Breath/Dyspnea Stated Complaint: SHORT OF BREATH ED Provider: Royce Campa Discharge Problem: Dyspnea, Bradycardia Patient Disposition: Admitted As Inpatient Discharge Instructions Interventions: ED Discharge Assessment Last Done: 08/26/18 12:10 The scribe's documentation has been prepared under my direction and personally reviewed by me in its entirety. I confirm that the note above accurately reflects all work, treatment, procedures, and medical decision making performed by me.
[2018-08-28] MEDS: CITALOPRAM 20 MG TAB PO SCH (07:29)
[2018-08-28] MEDS: TOPIRAMATE 25 MG TAB PO SCH (07:29)
[2018-08-28] MEDS: CLOPIDOGREL BISULFATE 75 MG TAB PO SCH (07:29)
[2018-08-28] MEDS: ASPIRIN 81 MG ECTAB PO SCH (07:29)
[2018-08-28] MEDS: INSULIN ASPART 100 UNITS/ML 3 ML PEN SC SCH ×4 (07:46→21:39)
[2018-08-28 07:53] LABS: Estimated Average Glucose 128 mg/dl; Hemoglobin A1C 6.1 % (4.5-5.6)
[2018-08-28] MEDS ORDERED: INSULIN GLARGINE SOLOSTAR 100 UNITS/ML 3 ML PEN SC ONE (09:00)
[2018-08-28] MEDS ORDERED: LANTUS PER UNIT CHARGE SQ ONE (09:59)
--- NOTE | 2018-08-28 10:27 | Cardiology Progress Note ---
Date of Service August 28, 2018 Assessment & Plan (1) Bradycardia: The patient was in an idioventricular rhythm at the time of her presentation. Suspect her chronotropic incompetence was responsible for her presenting complaints of dyspnea and PND. Fortunately, intravenous dopamine has returned her sinus mechanism. Dr. Borges with see the patient later today. (2) Chronic diastolic (congestive) heart failure: Compensated at this time. (3) Hypertension: Adequate control on her current regimen. (4) Shortness of breath: Likely secondary to chronotropic incompetence. Subjective The patient is resting comfortably in bed and without complaints. Physical Exam Vital Signs (Past 24 Hours): Last Vital Signs Temp 36.8 C 08/28/18 00:01 Pulse 50 L 08/28/18 01:31 Resp 19 08/28/18 01:31 BP 160/54 H 08/28/18 01:31 Pulse Ox 96 08/28/18 01:31 Physical Exam: In general this is an obese white female in no acute distress. HEENT exam is negative. Neck is supple with full carotid upstrokes. There are no carotid bruits. Jugular venous pressure is flat at 90. There is no thyromegaly. Cardiovascular exam reveals a regular rhythm with a normal S1 and S2. No S3, S4, or murmurs are noted. Lungs are clear without rales, rhonchi, or wheezes. Abdomen is soft and nontender without bruits. Extremities reveal intact radial artery and posterior tibial pulses bilaterally. There is no peripheral edema. Results & Data Laboratory Results Laboratory Results - last 24 hr 08/26/18 08/27/18 08/27/18 10:10 11:25 16:07 WBC RBC Hgb Hct MCV MCH MCHC RDW Std Deviation RDW Coeff of Chun Plt Count MPV Immature Gran % (Auto) Neut % (Auto) Lymph % (Auto) [place] % (Auto) Eos % (Auto) Baso % (Auto) Immature Gran # (Auto) Neut # (Auto) Lymph # (Auto) [place] # (Auto) Eos # (Auto) Baso # (Auto) Sodium Potassium Chloride Carbon Dioxide Anion Gap BUN Creatinine Est Cr Clr Drug Dosing Est GFR ( Amer) Est GFR (Non-Af Amer) BUN/Creatinine Ratio Glucose POC Glucose 234 H 220 H Estimat Average Glucose 128 Hemoglobin A1c 6.1 H Calcium Magnesium Total Bilirubin Direct Bilirubin AST ALT Alkaline Phosphatase Total Protein Albumin 08/27/18 08/28/18 08/28/18 21:27 04:54 04:54 WBC 8.98 RBC 4.79 Hgb 14.3 Hct 43.3 MCV 90.4 MCH 29.9 MCHC 33.0 RDW Std Deviation 42.1 RDW Coeff of Chun 12.7 Plt Count 169 MPV 10.0 Immature Gran % (Auto) 0.1 Neut % (Auto) 71.9 Lymph % (Auto) 17.7 [place] % (Auto) 7.8 Eos % (Auto) 2.3 Baso % (Auto) 0.2 Immature Gran # (Auto) 0.01 Neut # (Auto) 6.45 Lymph # (Auto) 1.59 [place] # (Auto) 0.70 H Eos # (Auto) 0.21 Baso # (Auto) 0.02 Sodium 142 Potassium 4.3 Chloride 109 H Carbon Dioxide 28 Anion Gap 5.0 BUN 15 Creatinine 0.81 Est Cr Clr Drug Dosing 58.2 Est GFR ( Amer) 78.9 Est GFR (Non-Af Amer) 68.1 BUN/Creatinine Ratio 19.1 Glucose 172 H POC Glucose 136 H Estimat Average Glucose Hemoglobin A1c Calcium 8.8 Magnesium 1.9 Total Bilirubin 0.4 Direct Bilirubin 0.1 AST 10 L ALT 11 L Alkaline Phosphatase 132 H Total Protein 7.0 Albumin 3.1 L 08/28/18 07:41 WBC RBC Hgb Hct MCV MCH MCHC RDW Std Deviation RDW Coeff of Chun Plt Count MPV Immature Gran % (Auto) Neut % (Auto) Lymph % (Auto) [place] % (Auto) Eos % (Auto) Baso % (Auto) Immature Gran # (Auto) Neut # (Auto) Lymph # (Auto) [place] # (Auto) Eos # (Auto) Baso # (Auto) Sodium Potassium Chloride Carbon Dioxide Anion Gap BUN Creatinine Est Cr Clr Drug Dosing Est GFR ( Amer) Est GFR (Non-Af Amer) BUN/Creatinine Ratio Glucose POC Glucose 177 H Estimat Average Glucose Hemoglobin A1c Calcium Magnesium Total Bilirubin Direct Bilirubin AST ALT Alkaline Phosphatase Total Protein Albumin Diagnostic Findings Telemtry monitor notes sinus bradycardia. (1) Hypertension Hypertension type: essential hypertension Qualified Code(s): I10 - Essential (primary) hypertension
--- NOTE | 2018-08-28 12:56 | Critical Care Progress Note ---
Date of Service August 28, 2018 Assessment & Plan (1) Admitted to intensive care unit: Neuro- awake alert CV- bradycardia on dopamine for HR support. when dopamine decreased this AM went to junctional rhythm and P waves returned with dopamine restarting. for pacemaker placement tommorow. BP stable. aspirin, clopidogrel, atorvastatin. chronic diastolic congestive heart failure Pulmonary- sat well on NC. titrate for sat >92% ID- no signs infection Renal- cr ok GI- diet as tolerated. NPO tonight for procedure Heme- enoxaparin proph after procedures Endocrine- blood sugars borderline this morning. continue to adjust insulin to keep sugars <180 Dispo- continue ICU care for hemodynamic monitoring and support I have personally spent 35 minutes of critical care time in the direct management of this patient. This is a life/limb threatening event. This includes time spent evaluating patient, direct bedside care, chart review, placing orders, interpretation of diagnostic studies, discussion with consultants, patient, and/or family members regarding treatment decisions, as well as other required patient management activities. This time is exclusive of all separately billable procedures, and teaching time and separate from and in addition to any other critical care service time. Subjective no complaints remains on dopamine for rate control Physical Exam Vital Signs (Past 24 Hours): Last Vital Signs Temp 36.8 C 08/28/18 00:01 Pulse 50 L 08/28/18 01:31 Resp 19 08/28/18 01:31 BP 160/54 H 08/28/18 01:31 Pulse Ox 96 08/28/18 01:31 Physical Exam: Constitutional: Comfortable NAD HEENT: normocephalic atraumatic. MMM. CV: bradycardia nl s1,s2 no mumurs rubs or gallops Lungs: clear to auscultation bilaterally. no accessory muscle use Abd: soft nontender nondistended. normal bowel sounds Ext: + LE edema. no cyanosis, no edema Skin: warm dry Neuro: alert awake. moving all extremities Psych: normal mood and affect
--- NOTE | 2018-08-28 18:16 | Cardiology Progress Note ---
Date of Service August 28, 2018 Assessment & Plan (1) Bradycardia: She presented with a junctional bradycardia on no medications because it. It did respond to dopamine with an increase in sinus rate, with discontinuation of dopamine the sinus rate slowed down and junctional bradycardia once again ensued. This is consistent with severe sinus node dysfunction. She should have a pacemaker placed. I discussed the indications, procedure, risks and alternatives of pacemaker implantation with her and she understands and agrees to proceed. I also discuss it with her son by telephone. Consent obtained. I also discussed conscious sedation and she is agreeable. Consent obtained. We will plan on an 8 AM procedure tomorrow. Subjective She feels well currently, with discontinuation of dopamine earlier today she had a slow junctional rhythm once again. With restarting dopamine the heart rate picked up. Physical Exam Vital Signs (Past 24 Hours): Last Vital Signs Temp 36.7 C 08/28/18 13:31 Pulse 48 L 08/28/18 13:31 Resp 20 08/28/18 13:31 BP 128/56 L 08/28/18 13:31 Pulse Ox 94 08/28/18 13:31 Physical Exam: Constitutional: Alert, cooperative and in no distress. Pulmonary: Clear to auscultation bilaterally. Cardiac: Regular rhythm with no murmur, gallop or rub. Abdomen: Soft, nontender with normal bowel sounds. Extremities: No edema. Skin: No rash, ecchymoses or petechiae.
--- NOTE | 2018-08-28 20:27 | Hospitalist Progress Note ---
Date of Service August 28, 2018 Assessment & Plan (1) Bradycardia: presented with junctional bradycardia in the ER. converted to sinus bradycardia sometime just before transfer to ICU. she had not been on any AV jassi agents. lyme's is negative. remains on low-dose dopamine at 6mcg with maintaining NSR and intact BP. cardiology consult appreciated. plan is for permanent pacemaker tomorrow by Dr. Borges. NPO after MN for such. K/mag remain normal. (2) Chronic diastolic (congestive) heart failure: compensated. stop IV fluids. (3) Diabetes: improved with lantus 20 units BID and changes to novolog w/ meals. (4) Hypertension: BPs stable. (5) COPD (chronic obstructive pulmonary disease): patient ONLY uses NC O2 at night-time at home. stable, no exacerbation at this time. (6) DVT prophylaxis: holding lovenox in anticipation of pacemaker placement tomorrow. Subjective pt w/o complaints of cp, dyspnea, dizziness, abd pain monitor with sinus padmini on the dopamine infusion plan - pacer tomorrow Constitutional: no fever Respiratory: no cough Cardiovascular: no chest pain Gastrointestinal: no abdominal pain Physical Exam Vital Signs (Past 24 Hours): Last Vital Signs Temp 36.7 C 08/28/18 13:31 Pulse 48 L 08/28/18 18:01 Resp 18 08/28/18 18:01 BP 166/53 H 08/28/18 18:01 Pulse Ox 96 08/28/18 18:01 Constitutional: well developed, well nourished and + obese; no acute distress and not ill appearing ENMT: external ear and nose normal, oropharynx normal Respiratory: normal respiratory effort, lungs clear to auscultation Cardiovascular: Rate/Rhythm: regular rhythm and + bradycardic Heart Sounds: normal S1 and normal S2; no murmur Vessels: posterior tibial pulses present and dorsalis pedis pulses present; no JVD Extremities: no edema Gastrointestinal (Abdomen): normal bowel sounds, soft, nontender, no hepatosplenomegaly Psychiatric: A+Ox3, euthymic affect Results & Data Laboratory Results Laboratory Results - last 24 hr 08/26/18 08/28/18 08/28/18 10:10 04:54 07:41 Sodium 142 Potassium 4.3 Chloride 109 H Carbon Dioxide 28 Anion Gap 5.0 BUN 15 Creatinine 0.81 Est Cr Clr Drug Dosing 58.2 Est GFR ( Amer) 78.9 Est GFR (Non-Af Amer) 68.1 BUN/Creatinine Ratio 19.1 Glucose 172 H POC Glucose 177 H Estimat Average Glucose 128 Hemoglobin A1c 6.1 H Calcium 8.8 Magnesium 1.9 Total Bilirubin 0.4 Direct Bilirubin 0.1 AST 10 L ALT 11 L Alkaline Phosphatase 132 H Total Protein 7.0 Albumin 3.1 L 08/28/18 08/28/18 08/28/18 11:10 16:24 21:07 Sodium Potassium Chloride Carbon Dioxide Anion Gap BUN Creatinine Est Cr Clr Drug Dosing Est GFR ( Amer) Est GFR (Non-Af Amer) BUN/Creatinine Ratio Glucose POC Glucose 180 H 121 H 131 H Estimat Average Glucose Hemoglobin A1c Calcium Magnesium Total Bilirubin Direct Bilirubin AST ALT Alkaline Phosphatase Total Protein Albumin (1) Diabetes Diabetes mellitus type: type 2 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
[2018-08-28] MEDS: ATORVASTATIN 40 MG TAB PO SCH (21:38)
[2018-08-28] MEDS: INSULIN GLARGINE SOLOSTAR 100 UNITS/ML 3 ML PEN SC SCH (21:39)
[2018-08-29 05:27] LABS: Hematocrit (blood only) 43.8 % (37-47); Hemoglobin 14.2 g/dL (12.0-16.0); Mean Corpuscular Hgb Conc 32.4 g/dL (32-36); Mean Corpuscular Volume 91.3 fL (80-100); Mean Platelet Volume 9.8 fL (7.4-10.4); Platelet Count 144 K/uL (130-400); RDW Coefficient of Variation 12.8 % (11.5-14.5); RDW Standard Deviation 42.9 fL (36.4-46.3); White Blood Count 7.89 K/uL (4.8-10.8)
[2018-08-29 05:56] LABS: Magnesium 1.8 mg/dl (1.8-2.4); Potassium 4.4 mmol/L (3.5-5.1)
[2018-08-29 05:57] LABS: BUN Creatinine Ratio 24.2 (10-20); Calcium 8.7 mg/dl (8.5-10.1); Creatinine Clr Calc Pharmacy 57.6 ml/min; Est GFR (African American) 83.9; Est GFR (Non-African American) 72.4
[2018-08-29] MEDS: LACTATED RINGER'S 1,000 ML IV SCH (05:58)
[2018-08-29] MEDS ORDERED: CEFAZOLIN 2000MG 2,000 MG/15 ML SYR IV SCH (06:00)
[2018-08-29] MEDS ORDERED: fentaNYL citrate 100 MCG/2 ML VIAL ONE (07:28)
[2018-08-29] MEDS ORDERED: LIDOCAINE HCL 1% 20 ML VIAL ONE (07:29)
[2018-08-29] MEDS ORDERED: MIDAZOLAM HCL 1 MG/ML 2ML VIAL ONE (07:29)
[2018-08-29] MEDS ORDERED: MIDAZOLAM HCL 5 MG/ML 1 ML VIAL ONE (07:30)
--- NOTE | 2018-08-29 07:32 | History & Physical Bridge Note ---
Date of Service August 29, 2018 History & Physical Bridge Note I have examined the patient, reviewed the History & Physical and in the interval since the performance of the History & Physical I have noted the following changes of clinical significance: no changes noted. Discussed the procedure with the patient's daughter at her bedside. She and the patient are agreeable to proceed.
--- NOTE | 2018-08-29 07:36 | Pre Anesthesia Assessment ---
Date of Service August 29, 2018 Pre Sedation Assessment Vital Signs Temp Pulse Resp BP Pulse Ox 08/28/18 18:01 48 L 18 166/53 H 96 08/28/18 18:00 47 L 20 95 08/28/18 17:31 48 L 23 165/54 H 96 08/28/18 17:30 49 L 20 95 08/28/18 17:02 45 L 23 154/48 H 96 08/28/18 17:00 45 L 20 96 08/28/18 16:30 47 L 24 97 08/28/18 16:01 48 L 24 175/62 H 96 08/28/18 16:00 43 L 22 96 08/28/18 15:30 45 L 17 96 08/28/18 15:01 44 L 25 H 150/46 H 95 08/28/18 15:00 44 L 18 95 08/28/18 14:31 45 L 24 145/51 H 95 08/28/18 14:30 44 L 20 95 08/28/18 14:01 48 L 21 165/49 H 94 08/28/18 14:00 47 L 22 95 08/28/18 13:31 36.7 C 48 L 20 128/56 L 94 08/28/18 13:30 48 L 20 94 08/28/18 13:01 49 L 23 158/54 H 94 08/28/18 13:00 50 L 22 94 08/28/18 12:32 53 L 22 174/58 H 92 08/28/18 12:30 51 L 19 92 08/28/18 12:01 42 L 16 99/39 L 96 08/28/18 12:00 44 L 21 96 08/28/18 11:31 46 L 17 103/40 L 97 08/28/18 11:30 41 L 16 96 08/28/18 11:01 39 L 18 96/47 L 95 08/28/18 11:00 39 L 17 95 08/28/18 10:31 43 L 18 108/41 L 97 08/28/18 10:30 39 L 18 98 08/28/18 10:07 41 L 22 93/60 L 98 08/28/18 10:02 21 97 08/28/18 10:00 60 19 96 08/28/18 09:31 50 L 19 106/52 L 97 08/28/18 09:30 48 L 11 L 97 08/28/18 09:01 47 L 17 136/47 L 97 08/28/18 09:00 47 L 14 95 08/28/18 08:31 49 L 15 165/49 H 96 08/28/18 08:30 48 L 19 97 08/28/18 08:01 59 L 16 171/56 H 96 08/28/18 08:00 48 L 16 95 08/28/18 07:41 44 L 16 97/38 L 96 Cardiovascular RRR, no murmur, no edema Respiratory normal respiratory effort, lungs clear to auscultation Pre-Sedation Airway Assessment Smoking Status: Former smoker Hx Sleep Apnea: No Hx Difficult Intubation: No Short, Thick Neck: Yes Thyromental Distance: < 3.5 Finger Breadths Mallampati Class: II ASA II NPO Status Date of Last Intake of Fluids: 08/28/18 Date of Last Intake of Solid Food: 08/28/18 Procedure Planning Contraindications for Sedation: none Current Medications Reviewed: Yes Notes The planned sedation has been discussed with the patient. Informed Consent was obtained. I have identified the patient, determined the appropriateness of sedation and have assessed the patient immediately prior to the procedure. All medicine(s) and interventions are by my order.
[2018-08-29] MEDS: INSULIN ASPART 100 UNITS/ML 3 ML PEN SC SCH ×4 (07:41→21:02)
[2018-08-29] MEDS ORDERED: ONDANSETRON INJ 2 MG/ML 2 ML VIAL ONE (07:48)
[2018-08-29] MEDS ORDERED: DOPamine 400MG / 250ML D5W IV ONE (07:53)
[2018-08-29] MEDS ORDERED: BACITRACIN OINT 0.9 GM PKT ONE (09:13)
--- NOTE | 2018-08-29 09:24 | Operative Report ---
Post Operative Report Pre & Post Diagnosis Operation Date: 08/29/18 08:00 Preoperative diagnosis: Severe sinus node dysfunction Postoperative diagnosis: Same Procedure Operation Date: 08/29/18 08:00 Actual Procedures p Pacer with A/V Leads (Dual) - Serafin Borges MD s Venogram, Unilateral - Serafin Borges MD Surgeon Serafin Borges MD Import Export Clerk None Estimated Blood Loss 20 Findings Consistent with Post-Op Diagnosis Excellent atrial and ventricular lead position, the ventricular lead was positioned in the high intraventricular septum. AV block occurred between an atrial pacing rate of 110 and 120 bpm. Specimens None Complications none Disposition Accompanied Patient To Recovery: No Disposition: Surgical ICU Description of Procedure After obtaining informed consent for the procedure, the patient was brought to the laboratory and prepped and draped in the standard sterile manner. The left prepectoral region was anesthetized with 1% lidocaine local anesthetic and dye was injected the left arm IV site to opacify the left subclavian vein. The subclavian vein was identified and found to be free of obstruction. Left axillary venipuncture was performed by percutaneous technique and a guidewire placed through the left subclavian vein into the superior vena cava. The area was further infiltrated with 1% lidocaine local anesthetic and a 5 cm incision was made parallel to the left clavicle and 2 cm below it and carried down to the anterior pectoralis fascia. A pacemaker pocket was formed by blunt dissection anterior to the pectoralis fascia and a bacitracin-soaked sponge (50,000 units in 50 cc normal saline solution) was placed in the pocket. An 8 [place] Medtronic lead introducer was placed over the guidewire into the left subclavian vein, the dilator and guidewire were removed and a bipolar active fixation steroid tipped atrial lead was advanced through the introducer into the superior vena cava. A guidewire was placed through the introducer and the introducer was stripped from the lead and guidewire. Using a curved stylette the atrial lead was positioned in the region of the atrial appendage and the screw extended fixing the lead in position. Pacing and sensing thresholds were evaluated in bipolar configuration and are recorded on the implant data sheet. Using an 8 [place] dilator the short guidewire was exchanged for a long guidewire and a selectsecure sheath was advanced over the guidewire into the right ventricle. The ventricular lead was positioned in the high septum just across the tricuspid valve. The lead was fixed in position. Pacing and sensing thresholds were evaluated in bipolar configuration and are recorded on the implant data sheet. Once the leads were in position they were attached to the anterior pectoralis fascia using 2 sutures of 2-0 silk around each lead collar. The bacitracin- soaked sponge was removed from the pocket, hemostasis was obtained, the pacemaker was attached to the leads and placed in the pocket with the leads coiled beneath it. The incision was closed with a running double subcutaneous closure of 3-0 Vicryl absorbable suture, followed by running subcuticular skin closure of 4-0 Vicryl absorbable suture. Bacitracin ointment was placed on the incision and a pressure dressing applied. I attest to the content of the Intraoperative Record and any orders documented therein. Any exceptions are noted below.
[2018-08-29] MEDS ORDERED: ACETAMINOPHEN 325 MG TAB PO PRN (09:34)
[2018-08-29] MEDS ORDERED: KETOROLAC TROMETHAMINE 10 MG TABLET PO PRN (09:34)
--- NOTE | 2018-08-29 09:38 | Post Anesthesia Assessment ---
Date of Service August 29, 2018 Post Sedation Assessment Vital Signs Temp Pulse Resp BP Pulse Ox 08/29/18 07:31 49 L 19 157/59 H 93 08/29/18 07:01 47 L 16 145/45 H 95 08/29/18 07:00 47 L 14 95 08/29/18 06:31 42 L 15 130/46 L 97 08/29/18 06:01 48 L 16 146/60 H 96 08/29/18 06:00 48 L 16 97 08/29/18 05:37 49 L 13 164/68 H 100 08/29/18 05:00 46 L 16 94 08/29/18 04:01 47 L 15 145/48 H 96 08/29/18 04:00 47 L 15 96 08/29/18 03:31 47 L 25 H 151/50 H 98 08/29/18 03:01 48 L 15 136/51 L 96 08/29/18 03:00 48 L 13 96 08/29/18 02:31 48 L 18 151/52 H 97 08/29/18 02:01 47 L 16 143/48 H 97 08/29/18 02:00 47 L 16 96 08/29/18 01:31 47 L 19 160/50 H 97 08/29/18 01:01 49 L 20 152/54 H 99 08/29/18 01:00 47 L 18 99 08/29/18 00:31 49 L 21 145/52 H 99 08/29/18 00:01 48 L 16 149/49 H 98 08/29/18 00:00 47 L 15 97 08/28/18 23:31 50 L 21 153/51 H 95 08/28/18 23:01 50 L 23 152/51 H 100 08/28/18 23:00 50 L 23 99 08/28/18 22:01 50 L 24 147/51 H 95 08/28/18 22:00 52 L 20 97 08/28/18 21:31 49 L 17 167/56 H 95 08/28/18 21:01 49 L 21 163/57 H 96 08/28/18 21:00 49 L 22 94 08/28/18 20:31 49 L 22 185/56 H 96 08/28/18 20:02 42 L 22 147/44 H 96 08/28/18 20:00 41 L 23 96 08/28/18 19:31 48 L 23 167/84 H 96 08/28/18 19:01 49 L 19 158/43 H 96 08/28/18 19:00 49 L 18 95 08/28/18 18:31 48 L 23 162/59 H 96 08/28/18 18:01 48 L 18 166/53 H 96 08/28/18 18:00 47 L 20 95 08/28/18 17:31 48 L 23 165/54 H 96 08/28/18 17:30 49 L 20 95 08/28/18 17:02 45 L 23 154/48 H 96 08/28/18 17:00 45 L 20 96 08/28/18 16:30 47 L 24 97 08/28/18 16:01 48 L 24 175/62 H 96 08/28/18 16:00 43 L 22 96 08/28/18 15:30 45 L 17 96 08/28/18 15:01 44 L 25 H 150/46 H 95 08/28/18 15:00 44 L 18 95 08/28/18 14:31 45 L 24 145/51 H 95 08/28/18 14:30 44 L 20 95 08/28/18 14:01 48 L 21 165/49 H 94 08/28/18 14:00 47 L 22 95 08/28/18 13:31 36.7 C 48 L 20 128/56 L 94 08/28/18 13:30 48 L 20 94 08/28/18 13:01 49 L 23 158/54 H 94 08/28/18 13:00 50 L 22 94 08/28/18 12:32 53 L 22 174/58 H 92 08/28/18 12:30 51 L 19 92 08/28/18 12:01 42 L 16 99/39 L 96 08/28/18 12:00 44 L 21 96 08/28/18 11:31 46 L 17 103/40 L 97 08/28/18 11:30 41 L 16 96 08/28/18 11:01 39 L 18 96/47 L 95 08/28/18 11:00 39 L 17 95 08/28/18 10:31 43 L 18 108/41 L 97 08/28/18 10:30 39 L 18 98 08/28/18 10:07 41 L 22 93/60 L 98 08/28/18 10:02 21 97 08/28/18 10:00 60 19 96 Recovery Score Activity: Moves 4 extremities Respiration: Deep Breath/Cough Oxygen Saturation: > 92% On Room Air Discharge Sedation Level of Care: Fast Track Phase II Post Sedation Plan On clinical assessment, the patient appears to have tolerated the sedation without complications. Patient is recovering as anticipated. Patient will continue to be monitored by nursing and may be discharged when sedation discharge criteria are met per below protocol. Upon Completions of procedure and additional 15 minutes continue every 5 minute vital signs and the P.A.R. score; then discharge to a Phase I or Fast Track to Phase II per the following guidelines: * Discharge Patient to appropriate Phase II area if PAR is 8 or greater or return to pre- procedure baseline. The post - procedure orders will be as directed. * If PAR score is less than 8 or not return to pre-procedure baseline then patient will follow Phase I monitoring till PAR is reached for Phase II. The Phase I may be done in procedure room or may call to secure a Phase I area. * If naloxone or flumazenil are used for reversal, hold in Phase I for continued monitoring from when last reversal dose was given for a minimum of 60 minutes or longer pending the nurse and/or physician discretion of patient condition before discharge to Phase II. Please call the Sedation Physician to re-evaluate and complete post-note for discharge to Phase II area. Do NOT discharge from procedure sedation or Phase 1 until post- sedation evaluation note is complete by procedure /sedation MD Sedation Discharge Instructions to be given to the patient at discharge to home.
--- NOTE | 2018-08-29 09:52 | Critical Care Progress Note ---
Date of Service August 29, 2018 Assessment & Plan (1) Admitted to intensive care unit: Neuro- awake alert CV- junctional bradycardia now s/p pacemaker. BP stable. aspirin, clopidogrel, atorvastatin. chronic diastolic congestive heart failure Pulmonary- sat well on NC. titrate for sat >92% ID- no signs infection Renal- cr ok GI- diet as tolerated. NPO tonight for procedure Heme- enoxaparin proph after procedures Endocrine- blood sugars controlled Dispo- ok to transfer out of ICU I have personally spent 35 minutes of critical care time in the direct management of this patient. This is a life/limb threatening event. This includes time spent evaluating patient, direct bedside care, chart review, placing orders, interpretation of diagnostic studies, discussion with consultants, patient, and/or family members regarding treatment decisions, as well as other required patient management activities. This time is exclusive of all separately billable procedures, and teaching time and separate from and in addition to any other critical care service time. Subjective no complaints pacemaker placed this morning Physical Exam Vital Signs (Past 24 Hours): Last Vital Signs Temp 36.7 C 08/28/18 13:31 Pulse 49 L 08/29/18 07:31 Resp 19 08/29/18 07:31 BP 157/59 H 08/29/18 07:31 Pulse Ox 93 08/29/18 07:31 Physical Exam: Constitutional: Comfortable NAD HEENT: normocephalic atraumatic. MMM. CV: RRR nl s1,s2 no mumurs rubs or gallops Lungs: clear to auscultation bilaterally. no accessory muscle use Abd: soft nontender nondistended. normal bowel sounds Ext: + LE edema. no cyanosis, no edema Skin: warm dry Neuro: alert awake. moving all extremities Psych: normal mood and affect
[2018-08-29] MEDS: CLOPIDOGREL BISULFATE 75 MG TAB PO SCH (10:19)
[2018-08-29] MEDS: TOPIRAMATE 25 MG TAB PO SCH (10:19)
[2018-08-29] MEDS: ASPIRIN 81 MG ECTAB PO SCH (10:19)
[2018-08-29] MEDS: CITALOPRAM 20 MG TAB PO SCH (10:19)
[2018-08-29] MEDS: INSULIN GLARGINE SOLOSTAR 100 UNITS/ML 3 ML PEN SC SCH ×2 (10:20→21:03)
--- NOTE | 2018-08-29 13:08 | Cardiology Progress Note ---
Date of Service August 29, 2018 Assessment & Plan (1) Bradycardia: Secondary to sinus node dysfunction. Dr. Borges placed a dual-chamber pacemaker earlier today. She is now pacing appropriately. (2) Chronic diastolic (congestive) heart failure: Compensated at this time. (3) Hypertension: Adequate control. (4) Shortness of breath: Likely secondary to chronotropic incompetence at time of presentation. Subjective The patient is resting comfortably in bed following her permanent pacemaker implantation. No complaints of chest pain or dyspnea. Physical Exam Vital Signs (Past 24 Hours): Last Vital Signs Temp 36.6 C 08/29/18 09:37 Pulse 60 08/29/18 11:01 Resp 21 08/29/18 11:01 BP 112/53 L 08/29/18 11:01 Pulse Ox 94 08/29/18 11:01 Physical Exam: In general this is an obese white female in no acute distress. HEENT exam is negative. Neck is supple with full carotid upstrokes. There are no carotid bruits. Jugular venous pressure is flat at 90. There is no thyromegaly. Cardiovascular exam reveals a regular rhythm with a normal S1 and S2. No S3, S4, or murmurs are noted. Chest reveals a dry dressing in the left subclavicular region. Lungs are clear without rales, rhonchi, or wheezes. Abdomen is soft and nontender without bruits. Extremities reveal intact radial artery and posterior tibial pulses bilaterally. There is no peripheral edema. Results & Data Laboratory Results Laboratory Results - last 24 hr 08/28/18 08/28/18 08/29/18 16:24 21:07 05:15 WBC RBC Hgb Hct MCV MCH MCHC RDW Std Deviation RDW Coeff of Chnu Plt Count MPV Sodium 140 Potassium 4.4 Chloride 110 H Carbon Dioxide 27 Anion Gap 3.0 BUN 19 H Creatinine 0.77 Est Cr Clr Drug Dosing 57.6 Est GFR ( Amer) 83.9 Est GFR (Non-Af Amer) 72.4 BUN/Creatinine Ratio 24.2 H Glucose 150 H POC Glucose 121 H 131 H Calcium 8.7 Magnesium 1.8 Specimen Hemolysis 08/29/18 08/29/18 05:15 11:25 WBC 7.89 RBC 4.80 Hgb 14.2 Hct 43.8 MCV 91.3 MCH 29.6 MCHC 32.4 RDW Std Deviation 42.9 RDW Coeff of Chun 12.8 Plt Count 144 MPV 9.8 Sodium Potassium Chloride Carbon Dioxide Anion Gap BUN Creatinine Est Cr Clr Drug Dosing Est GFR ( Amer) Est GFR (Non-Af Amer) BUN/Creatinine Ratio Glucose POC Glucose 173 H Calcium Magnesium Specimen Hemolysis Diagnostic Findings substance abuse clinician 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 (1) Hypertension Hypertension type: essential hypertension Qualified Code(s): I10 - Essential (primary) hypertension
[2018-08-29] MEDS: ATORVASTATIN 40 MG TAB PO SCH (21:03)
--- NOTE | 2018-08-29 21:07 | Hospitalist Progress Note ---
Date of Service August 29, 2018 Assessment & Plan (1) Bradycardia: presented with junctional bradycardia in the ER. converted to sinus bradycardia sometime just before transfer to ICU. she had not been on any AV jassi agents. lyme's testing negative. s/p permanent pacemaker today by Dr. Borges. dopamine now off. to transfer to telemetry today from ICU. chest x-ray in am. appreciate Dr. Borges's help. (2) Chronic diastolic (congestive) heart failure: compensated. (3) Diabetes: controlled with lantus 20 units BID and novolog ac. (4) Hypertension: BPs stable. (5) COPD (chronic obstructive pulmonary disease): patient ONLY uses NC O2 at night-time at home. stable, no exacerbation at this time. (6) DVT prophylaxis: resume lovenox in am transfer to tele PTR[facility] - has been on bedrest since admission is weak... daughter updated by phone today PT, ROMERO inman/recs will dictate remaining time in hospital and whether rehab is needed Subjective I saw the patient post-pacemaker placement while still in ICU. She was sleepy from her recent sedation. Offered no complaints. Respiratory: no dyspnea Cardiovascular: no chest pain Gastrointestinal: no abdominal pain Physical Exam Vital Signs (Past 24 Hours): Last Vital Signs Temp 36.7 C 08/29/18 19:00 Pulse 63 08/29/18 19:00 Resp 16 08/29/18 19:00 BP 106/58 L 08/29/18 19:00 Pulse Ox 95 08/29/18 19:00 Constitutional: well developed, well nourished and + obese; no acute distress and not ill appearing ENMT: external ear and nose normal, oropharynx normal Respiratory: normal respiratory effort, lungs clear to auscultation Cardiovascular: Rate/Rhythm: regular rate and regular rhythm Heart Sounds: normal S1 and normal S2; no murmur Vessels: posterior tibial pulses present and dorsalis pedis pulses present; no JVD Extremities: no edema Gastrointestinal (Abdomen): normal bowel sounds, soft, nontender, no hepatosplenomegaly Psychiatric: A+Ox3, euthymic affect (although sleepy) Results & Data Laboratory Results Laboratory Results - last 24 hr 08/28/18 08/29/18 08/29/18 21:07 05:15 05:15 WBC 7.89 RBC 4.80 Hgb 14.2 Hct 43.8 MCV 91.3 MCH 29.6 MCHC 32.4 RDW Std Deviation 42.9 RDW Coeff of Chun 12.8 Plt Count 144 MPV 9.8 Sodium 140 Potassium 4.4 Chloride 110 H Carbon Dioxide 27 Anion Gap 3.0 BUN 19 H Creatinine 0.77 Est Cr Clr Drug Dosing 57.6 Est GFR ( Amer) 83.9 Est GFR (Non-Af Amer) 72.4 BUN/Creatinine Ratio 24.2 H Glucose 150 H POC Glucose 131 H Calcium 8.7 Magnesium 1.8 Specimen Hemolysis 08/29/18 08/29/18 08/29/18 11:25 15:57 20:41 WBC RBC Hgb Hct MCV MCH MCHC RDW Std Deviation RDW Coeff of Chun Plt Count MPV Sodium Potassium Chloride Carbon Dioxide Anion Gap BUN Creatinine Est Cr Clr Drug Dosing Est GFR ( Amer) Est GFR (Non-Af Amer) BUN/Creatinine Ratio Glucose POC Glucose 173 H 173 H 123 H Calcium Magnesium Specimen Hemolysis (1) Diabetes Diabetes mellitus complication status: without complication 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
[2018-08-30] MEDS: LACTATED RINGER'S 1,000 ML IV SCH (00:47)
[2018-08-30 06:51] LABS: Hematocrit (blood only) 39.4 % (37-47); Hemoglobin 12.7 g/dL (12.0-16.0); Mean Corpuscular Hgb Conc 32.2 g/dL (32-36); Mean Corpuscular Volume 92.1 fL (80-100); Mean Platelet Volume 10.2 fL (7.4-10.4); Platelet Count 151 K/uL (130-400); RDW Coefficient of Variation 13.2 % (11.5-14.5); RDW Standard Deviation 44.2 fL (36.4-46.3); Red Blood Count 4.28 M/uL (4.2-5.4); White Blood Count 7.02 K/uL (4.8-10.8)
[2018-08-30 07:16] LABS: BUN Creatinine Ratio 34.5 (10-20); Calcium 8.8 mg/dl (8.5-10.1); Est GFR (African American) 61.2; Est GFR (Non-African American) 52.8; Magnesium 2.3 mg/dl (1.8-2.4); Potassium 4.3 mmol/L (3.5-5.1)
--- NOTE | 2018-08-30 07:38 | XRay Report ---
XR chest 2V routine CLINICAL HISTORY: 83 years-old Female presenting with status post pacer placement, evaluate for pneum othorax. TECHNIQUE: Portable upright AP view of the chest was obtained. COMPARISON: 08/26/2018. FINDINGS: Interval placement of a left subclavian 2-lead pacer with leads to the right atrium and right ventric ular apex, which are properly positioned. No evidence of retained surgical material at the pacer site . Multiple overlying external leads degrade evaluation in addition to portable technique. Atheroscler osis of the aortic arch. Mild convexity of the aortopulmonary window suggests main pulmonary artery e nlargement. Mild prominence of pulmonary vasculature similar prior. Mildly low lung volumes. No focal opacity. No large effusion or pneumothorax. Advanced degenerative changes of the right glenohumeral joint and lesser degree of degenerative change of the left glenohumeral joint. Degenerative changes o f the spine also suspected. Limited evaluation of the upper abdomen due to body habitus. IMPRESSION: 1. Appropriately positioned 2-lead left subclavian pacer. No pneumothorax. 2. Cardiomegaly with volume overload. No eloise pulmonary edema. 3. Pulmonary artery hypertension. Electronically signed by: Nelson Melgoza M.D. 08/30/2018 7:36 AM
[2018-08-30] MEDS: CLOPIDOGREL BISULFATE 75 MG TAB PO SCH (07:50)
[2018-08-30] MEDS: TOPIRAMATE 25 MG TAB PO SCH (07:50)
[2018-08-30] MEDS: CITALOPRAM 20 MG TAB PO SCH (07:50)
[2018-08-30] MEDS: INSULIN GLARGINE SOLOSTAR 100 UNITS/ML 3 ML PEN SC SCH ×2 (07:50→20:34)
[2018-08-30] MEDS: ASPIRIN 81 MG ECTAB PO SCH (07:50)
[2018-08-30] MEDS: INSULIN ASPART 100 UNITS/ML 3 ML PEN SC SCH ×4 (07:52→20:33)
--- NOTE | 2018-08-30 08:41 | Cardiology Progress Note ---
Date of Service August 30, 2018 Assessment & Plan (1) Bradycardia: She had sinus node dysfunction and an escape rhythm, however she has good AV jassi conduction. She will be predominantly atrial pacing now, probably virtually 100% but will most likely have intact AV conduction for the most part. (2) Pacemaker: The pacemaker is functioning well, the leads are in good position and measurements are excellent through the device. The site looks good. She is stable for discharge from my standpoint. Subjective She is feeling well from the surgical standpoint, she is complaining of feeling tired however. No palpitations. No chest pain. Physical Exam Vital Signs (Past 24 Hours): Last Vital Signs Temp 37.0 C 08/30/18 06:47 Pulse 61 08/30/18 06:47 Resp 18 08/30/18 06:47 BP 109/65 08/30/18 06:47 Pulse Ox 94 08/30/18 06:47 Physical Exam: Constitutional: Alert, cooperative and in no distress. Pulmonary: Clear to auscultation bilaterally. Cardiac: Regular rhythm with no murmur, gallop or rub. Abdomen: Soft, nontender with normal bowel sounds. Extremities: No edema. Skin: No rash, ecchymoses or petechiae. The incision is clean and dry with no bleeding, dressing changed. No swelling or hematoma. Results & Data Diagnostic Findings Postop ECG: Atrial sensing and appropriate ventricular pacing Telemetry: Normal pacemaker function since implant Chest x-ray: No pneumothorax, good lead position Pacemaker evaluation: Excellent pacing and sensing characteristics
[2018-08-30] MEDS: FUROSEMIDE 40 MG TAB PO SCH (09:51)
--- NOTE | 2018-08-30 12:27 | Cardiology Progress Note ---
Date of Service August 30, 2018 Assessment & Plan (1) Bradycardia: Secondary to sinus node dysfunction. Dual chamber pacemaker placed yesterday by Dr. Borges. Normal pacer function when interrogated this morning. (2) Chronic diastolic (congestive) heart failure: Compensated at this time. (3) Hypertension: Adequate control. (4) Shortness of breath: Likely secondary to chronotropic incompetence. Subjective The patient is resting comfortably in bed without complaints of chest pain or dyspnea. Physical Exam Vital Signs (Past 24 Hours): Last Vital Signs Temp 36.4 C L 08/30/18 11:07 Pulse 60 08/30/18 11:07 Resp 18 08/30/18 11:07 BP 114/71 08/30/18 11:07 Pulse Ox 96 08/30/18 11:46 Physical Exam: In general this is an obese white female in no acute distress. HEENT exam is negative. Neck is supple with full carotid upstrokes. There are no carotid bruits. Jugular venous pressure is flat at 90. There is no thyromegaly. Cardiovascular exam reveals a regular rhythm with a normal S1 and S2. No S3, S4, or murmurs are noted. Chest reveals a dry dressing in the left subclavicular region. Lungs are clear without rales, rhonchi, or wheezes. Abdomen is soft and nontender without bruits. Extremities reveal intact radial artery and posterior tibial pulses bilaterally. There is no peripheral edema. Results & Data Laboratory Results Laboratory Results - last 24 hr 08/29/18 08/29/18 08/30/18 15:57 20:41 06:18 WBC RBC Hgb Hct MCV MCH MCHC RDW Std Deviation RDW Coeff of Chun Plt Count MPV Sodium 145 Potassium 4.3 Chloride 112 H Carbon Dioxide 28 Anion Gap 5.0 BUN 34 H D Creatinine 1.00 Est Cr Clr Drug Dosing 46.0 Est GFR ( Amer) 61.2 Est GFR (Non-Af Amer) 52.8 BUN/Creatinine Ratio 34.5 H Glucose 90 POC Glucose 173 H 123 H Calcium 8.8 Magnesium 2.3 08/30/18 08/30/18 08/30/18 06:18 07:12 11:14 WBC 7.02 RBC 4.28 Hgb 12.7 Hct 39.4 MCV 92.1 MCH 29.7 MCHC 32.2 RDW Std Deviation 44.2 RDW Coeff of Chun 13.2 Plt Count 151 MPV 10.2 Sodium Potassium Chloride Carbon Dioxide Anion Gap BUN Creatinine Est Cr Clr Drug Dosing Est GFR ( Amer) Est GFR (Non-Af Amer) BUN/Creatinine Ratio Glucose POC Glucose 89 151 H Calcium Magnesium Diagnostic Findings residential 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 (1) Hypertension Hypertension type: essential hypertension Qualified Code(s): I10 - Essential (primary) hypertension
[2018-08-30] MEDS: ATORVASTATIN 40 MG TAB PO SCH (20:33)
--- NOTE | 2018-08-30 20:53 | Hospitalist Progress Note ---
Date of Service August 30, 2018 Assessment & Plan (1) Bradycardia: presented with junctional bradycardia in the ER. converted to sinus bradycardia sometime just before transfer to ICU. she had not been on any AV jassi agents. lyme's testing negative. required ICU admission with dopamine for several days. Dopamine off. s/p permanent pacemaker by Dr. Borges. POD #1. cxr w/o pneumothorax. good pacer function per Dr. Borges. (2) Chronic diastolic (congestive) heart failure: clinically compensated. resume lasix today at home dose 40mg/day. (3) Diabetes: controlled with lantus 20 units BID and novolog ac. (4) Hypertension: BPs stable. (5) COPD (chronic obstructive pulmonary disease): patient ONLY uses NC O2 at night-time at home. stable, no exacerbation at this time. wean o2 off during the daytime. (6) DVT prophylaxis: resume lovenox in am tomorrow if H/H stable Pt's BUN was high today and hemoglobin was 2 grams lower than yesterday no reported bleeding during pacer insertion occult GI bleeding??? fecal occult ordered repeat labs in am PT,OT evals done --- needs rehab [facility], etc --- social work to help with this daughter updated yesterday Subjective patient just complains of weakness no dyspnea no chest pain no abdominal pain worked with OT today - was quite weak eating 100% of meals willing to go to rehab Respiratory: + dyspnea on exertion (chronic); no dyspnea Cardiovascular: + chest pain (near pacer site - "sore") Gastrointestinal: no abdominal pain, no nausea and no vomiting Physical Exam Vital Signs (Past 24 Hours): Last Vital Signs Temp 36.6 C 08/30/18 19:33 Pulse 62 08/30/18 19:33 Resp 22 08/30/18 19:33 BP 151/71 H 08/30/18 19:33 Pulse Ox 97 08/30/18 19:33 Constitutional: well developed, well nourished and + obese; no acute distress and not ill appearing ENMT: external ear and nose normal, oropharynx normal Respiratory: normal respiratory effort, lungs clear to auscultation Cardiovascular: Rate/Rhythm: regular rate and regular rhythm Heart Sounds: normal S1 and normal S2; no murmur Vessels: posterior tibial pulses present and dorsalis pedis pulses present; no JVD Extremities: no edema Gastrointestinal (Abdomen): normal bowel sounds, soft, nontender, no hepatosplenomegaly Skin: pacer site left upper chest with dressing intact Psychiatric: A+Ox3, euthymic affect Results & Data Laboratory Results Hb 12.7 Cr 1 Diagnostic Findings cxr - no pneumothorax (1) Diabetes Diabetes mellitus complication status: without complication 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
[2018-08-31] MEDS: LACTATED RINGER'S 1,000 ML IV SCH (03:40)
[2018-08-31 06:17] LABS: Calcium 8.9 mg/dl (8.5-10.1); Creatinine Clr Calc Pharmacy 54.8 ml/min; Est GFR (African American) 75.5; Est GFR (Non-African American) 65.2; Magnesium 2.1 mg/dl (1.8-2.4); Potassium 4.1 mmol/L (3.5-5.1)
[2018-08-31 08:00] LABS: Hematocrit (blood only) 38.5 % (37-47); Hemoglobin 12.3 g/dL (12.0-16.0); Mean Corpuscular Hgb Conc 31.9 g/dL (32-36); Mean Corpuscular Volume 92.1 fL (80-100); Platelet Count 151 K/uL (130-400); RDW Coefficient of Variation 13.2 % (11.5-14.5); RDW Standard Deviation 44.4 fL (36.4-46.3); Red Blood Count 4.18 M/uL (4.2-5.4); White Blood Count 7.52 K/uL (4.8-10.8)
[2018-08-31] MEDS: TOPIRAMATE 25 MG TAB PO SCH (08:09)
[2018-08-31] MEDS: CITALOPRAM 20 MG TAB PO SCH (08:09)
[2018-08-31] MEDS: CLOPIDOGREL BISULFATE 75 MG TAB PO SCH (08:09)
[2018-08-31] MEDS: FUROSEMIDE 40 MG TAB PO SCH (08:09)
[2018-08-31] MEDS: ASPIRIN 81 MG ECTAB PO SCH (08:09)
[2018-08-31] MEDS: INSULIN GLARGINE SOLOSTAR 100 UNITS/ML 3 ML PEN SC SCH ×2 (08:29→20:51)
[2018-08-31] MEDS: INSULIN ASPART 100 UNITS/ML 3 ML PEN SC SCH ×4 (08:30→20:51)
--- NOTE | 2018-08-31 13:45 | Cardiology Progress Note ---
Date of Service August 31, 2018 Assessment & Plan (1) Bradycardia: Bradycardia likely secondary to significant sinus node disease. Is stable following permanent pacemaker implantation. (2) Chronic diastolic (congestive) heart failure: Compensated at this time. (3) Hypertension: Adequate control. (4) Shortness of breath: Likely secondary to chronotropic incompetence. The patient is now asymptomatic when ambulating in her room. Subjective The patient is resting comfortably a bedside chair and without complaints Physical Exam Vital Signs (Past 24 Hours): Last Vital Signs Temp 36.7 C 08/31/18 10:52 Pulse 60 08/31/18 10:52 Resp 18 08/31/18 10:52 BP 130/77 08/31/18 10:52 Pulse Ox 94 08/31/18 10:52 Physical Exam: In general this is an obese white female in no acute distress. HEENT exam is negative. Neck is supple with full carotid upstrokes. There are no carotid bruits. Jugular venous pressure is flat at 90. There is no thyromegaly. Cardiovascular exam reveals a regular rhythm with a normal S1 and S2. No S3, S4, or murmurs are noted. Chest reveals a dry dressing in the left subclavicular region. Lungs are clear without rales, rhonchi, or wheezes. Abdomen is soft and nontender without bruits. Extremities reveal intact radial artery and posterior tibial pulses bilaterally. There is no peripheral edema. Results & Data Laboratory Results monitoring analyst 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 (1) Hypertension Hypertension type: essential hypertension Qualified Code(s): I10 - Essential (primary) hypertension
[2018-08-31] MEDS: ENOXAPARIN INJ 40 MG/0.4 ML SYR SQ SCH (15:12)
--- NOTE | 2018-08-31 19:55 | Hospitalist Progress Note ---
Date of Service August 31, 2018 Assessment & Plan (1) Bradycardia: presented with junctional bradycardia in the ER. converted to sinus bradycardia sometime just before transfer to ICU. she had not been on any AV jassi agents. Lyme titer was negative. required ICU admission with dopamine for several days. Dopamine off. s/p permanent pacemaker by Dr. Borges on 08/29. POD #2. cxr w/o pneumothorax. good pacer function per Dr. Borges. Stable for discharge from cardiology standpoint (2) Chronic diastolic (congestive) heart failure: clinically compensated. Continue Lasix at home dose 40mg/day. (3) Diabetes: controlled with lantus 20 units BID and novolog ac. (4) Hypertension: BPs stable. -Continue furosemide (5) COPD (chronic obstructive pulmonary disease): patient ONLY uses NC O2 at night-time at home. stable, no exacerbation at this time. wean o2 off during the daytime and if not possible, order 2-step walk test to see if qualifies for home O2. (6) Anxiety disorder: Stable -Continue Celexa, BuSpar Unclear if on Topamax for anxiety or for headache prevention? (7) DVT prophylaxis: Resumed Lovenox SQ today PT,OT evals done --- OT recommend home with home health, PT recommends rehab Patient prefers to go home with home health-Case management met with patient late in the day and patient decided at that time to go home with home health-I was not informed of this decision and the patient wished to stay overnight another day -We will need a two-step prior to discharge to determine if needs oxygen during the daytime Most likely discharged home tomorrow Subjective Patient reports feeling well. Denies chest pain. She remains on oxygen at rest and denies shortness of breath. I discussed the case with cardiology today and from their perspective, she can be discharged home. Patient was unsure at the time I saw her whether she wanted to go to rehab or not. Telemetry with paced rhythm in the 60s Review of Systems All systems reviewed & are unremarkable except as noted in HPI & below Physical Exam Vital Signs (Past 24 Hours): Last Vital Signs Temp 36.8 C 08/31/18 19:53 Pulse 59 L 08/31/18 19:53 Resp 18 08/31/18 19:53 BP 134/62 04/04/19 19:53 Pulse Ox 93 08/31/18 19:53 Constitutional: WD/WN, vitals as above Eyes: PERRL, conjunctivae normal, anicteric sclerae ENMT: external ear and nose normal, oropharynx normal Neck: trachea midline, no thyromegaly Respiratory: normal respiratory effort, lungs clear to auscultation Cardiovascular: RRR, no murmur, no edema Gastrointestinal (Abdomen): normal bowel sounds, soft, nontender, no hepatos plenomegaly Musculoskeletal: Extremities: extremities normal to inspection; no cyanosis and no clubbing Skin: no rashes, warm and dry Neurologic: moves all extremities and awake; no focal motor deficits Psychiatric: A+Ox3, euthymic affect Results & Data Laboratory Results 08/31/18 08/31/18 08/31/18 Range/Units 16:30 11:18 07:17 WBC (4.8-10.8) K/uL RBC (4.2-5.4) M/uL Hgb (12.0-16.0) g/dL Hct (37-47) % MCV (80-100) fL MCH (25-34) pg MCHC (32-36) g/dL RDW Std Deviation (36.4-46.3) fL RDW Coeff of Chun (11.5-14.5) % Plt Count (130-400) K/uL MPV (7.4-10.4) fL Sodium (136-145) mmol/L Potassium (3.5-5.1) mmol/L Chloride (98-107) mmol/L Carbon Dioxide (21-32) mmol/L Anion Gap (3-11) BUN (7-18) mg/dl Creatinine (0.6-1.2) mg/dl Est Cr Clr Drug Dosing ml/min Est GFR ( Amer) Est GFR (Non-Af Amer) BUN/Creatinine Ratio (10-20) Glucose (70-99) mg/dl POC Glucose 139 H 126 H 96 (70-99) Calcium (8.5-10.1) mg/dl Magnesium (1.8-2.4) mg/dl Specimen Hemolysis 08/31/18 08/31/18 08/30/18 Range/Units 05:17 05:16 20:06 WBC 7.52 (4.8-10.8) K/uL RBC 4.18 L (4.2-5.4) M/uL Hgb 12.3 (12.0-16.0) g/dL Hct 38.5 (37-47) % MCV 92.1 (80-100) fL MCH 29.4 (25-34) pg MCHC 31.9 L (32-36) g/dL RDW Std Deviation 44.4 (36.4-46.3) fL RDW Coeff of Chun 13.2 (11.5-14.5) % Plt Count 151 (130-400) K/uL MPV 10.0 (7.4-10.4) fL Sodium 143 (136-145) mmol/L Potassium 4.1 (3.5-5.1) mmol/L Chloride 110 H (98-107) mmol/L Carbon Dioxide 31 (21-32) mmol/L Anion Gap 2.0 L (3-11) BUN 29 H (7-18) mg/dl Creatinine 0.84 (0.6-1.2) mg/dl Est Cr Clr Drug Dosing 54.8 ml/min Est GFR ( Amer) 75.5 Est GFR (Non-Af Amer) 65.2 BUN/Creatinine Ratio 34.0 H (10-20) Glucose 89 (70-99) mg/dl POC Glucose 123 H (70-99) Calcium 8.9 (8.5-10.1) mg/dl Magnesium 2.1 (1.8-2.4) mg/dl Specimen Hemolysis (1) Diabetes Diabetes mellitus type: type 2 Diabetes mellitus nursing home insulin use: with nursing home use Diabetes mellitus complication status: without complication Qualified Code(s): E11.9 - Type 2 diabetes mellitus without complications; Z79.4 - shelter (current) use of insulin (2) Hypertension Hypertension type: essential hypertension Qualified Code(s): I10 - Essential (primary) hypertension (3) COPD (chronic obstructive pulmonary disease) COPD type: unspecified COPD Qualified Code(s): J44.9 - Chronic obstructive pulmonary disease, unspecified
[2018-08-31] MEDS: ATORVASTATIN 40 MG TAB PO SCH (20:50)
[2018-09-01] MEDS: CITALOPRAM 20 MG TAB PO SCH (08:34)
[2018-09-01] MEDS: ASPIRIN 81 MG ECTAB PO SCH (08:34)
[2018-09-01] MEDS: CLOPIDOGREL BISULFATE 75 MG TAB PO SCH (08:34)
[2018-09-01] MEDS: FUROSEMIDE 40 MG TAB PO SCH (08:34)
[2018-09-01] MEDS: TOPIRAMATE 25 MG TAB PO SCH (08:35)
[2018-09-01] MEDS: INSULIN ASPART 100 UNITS/ML 3 ML PEN SC SCH ×2 (08:35→12:44)
[2018-09-01] MEDS: INSULIN GLARGINE SOLOSTAR 100 UNITS/ML 3 ML PEN SC SCH (08:35)
--- NOTE | 2018-09-01 11:14 | Cardiology Progress Note ---
Date of Service September 01, 2018 Assessment & Plan (1) Sinus node dysfunction: Was noted at time of presentation. Dual-chamber pacemaker placed by Dr. Borges. Device is functioning properly at this time. I be happy to follow the patient in our pacemaker clinic. (2) Chronic diastolic (congestive) heart failure: Compensated. (3) Hypertension: Adequate control on current medical regimen. (4) Shortness of breath: Likely secondary to chronotropic incompetence. Subjective The patient is resting comfortably a bedside chair and without complaints Physical Exam Vital Signs (Past 24 Hours): Last Vital Signs Temp 36.5 C 09/01/18 10:44 Pulse 59 L 09/01/18 10:44 Resp 18 09/01/18 10:44 BP 129/69 09/01/18 10:44 Pulse Ox 94 09/01/18 10:44 Physical Exam: In general this is an obese white female in no acute distress. HEENT exam is negative. Neck is supple with full carotid upstrokes. There are no carotid bruits. Jugular venous pressure is flat at 90. There is no thyromegaly. Cardiovascular exam reveals a regular rhythm with a normal S1 and S2. No S3, S4, or murmurs are noted. Chest reveals a dry dressing in the left subclavicular region. Lungs are clear without rales, rhonchi, or wheezes. Abdomen is soft and nontender without bruits. Extremities reveal intact radial artery and posterior tibial pulses bilaterally. There is no peripheral edema. Results & Data Laboratory Results Laboratory Results - last 24 hr 08/31/18 08/31/18 08/31/18 11:18 16:30 20:15 POC Glucose 126 H 139 H 130 H 09/01/18 07:16 POC Glucose 93 (1) Hypertension Hypertension type: essential hypertension Qualified Code(s): I10 - Essential (primary) hypertension
[2018-09-01 13:37] VITALS: PULSE 60
--- NOTE | 2018-09-01 13:56 | Discharge Summary ---
Date of Service September 01, 2018 Admission HPI Per Admitting Provider 83yo F w/ hx of HTN, HLD, DM, and diastolic CHF who presents with shortness of breath x 3 days. She reports a rapid onset. No cough, no fevers, chills, no sputum. She notes some PND and dyspnea on exertion that have been longer- standing; however, she denies any edema (lower extremity or abdominal) and does not know if she's gained any weight in the last 1-2 weeks. She usually walks outside with a walker, but notes that over weeks, she has had trouble walking around the house and that she should probably use her walker at home as well. She reports some mild lightheadedness that is transient in the last 3 days as well, but no syncopal events. Doesn't note if this is worse with position changes. No chest pain, no palpitations. Principal Diagnosis Symptomatic bradycardia Discharge Exam Constitutional WD/WN, vitals as above Eyes PERRL, conjunctivae normal, anicteric sclerae ENMT external ear and nose normal, oropharynx normal Neck trachea midline, no thyromegaly Respiratory normal respiratory effort, lungs clear to auscultation Cardiovascular RRR, no murmur, no edema Gastrointestinal (Abdomen) normal bowel sounds, soft, nontender, no hepatosplenomegaly Musculoskeletal Extremities: extremities normal to inspection; no cyanosis and no clubbing Skin no rashes, warm and dry Neurologic moves all extremities and awake; no focal motor deficits Psychiatric A+Ox3, euthymic affect Discharge Data Allergies Allergy/AdvReac Type Severity Reaction Status Date / Time No Known Allergies Allergy Unverified 08/26/18 10:36 Consultations 08/26/18 10:24 Consult Cardiology Stat 08/26/18 10:55 Consult International Freight Forwarder Stat 08/26/18 11:00 ED Decision to Admit Stat 08/26/18 12:58 Consult Case Management - Discharge Planning Routine Procedures Performed Operation Date: 08/29/18 08:00 Actual Procedures p Pacer with A/V Leads (Dual) - Serafin Borges MD s Venogram, Unilateral - Serafin Borges MD CXR Ordered Studies 08/29/18 07:15 EP Lab Images for PACS ONCE Hospital Course (1) Bradycardia: presented with junctional bradycardia in the ER. converted to sinus bradycardia sometime just before transfer to ICU. she had not been on any AV jassi agents. Lyme titer was negative. required ICU admission with dopamine for several days. Dopamine then turned off and pacer placed. s/p permanent pacemaker by Dr. Borges on 4/2. POD #3 and doing well, pacer functioning appropriately. cxr w/o pneumothorax. Stable for discharge from cardiology standpoint and f/u as scheduled with Cardiology (2) Chronic diastolic (congestive) heart failure: clinically compensated. Continue Lasix at home dose 40mg/day. (3) Diabetes: controlled with lantus 20 units BID and novolog ac which are much lower doses than at home -recommended restarting home Novolin 70/30 at 30 units bid instead of usual home dose of 32/60 and titrate back up when glucose rises again (4) Hypertension: BPs stable. -Continue furosemide -restart low dose lisinopril and isosorbide upon discharge (5) COPD (chronic obstructive pulmonary disease): patient ONLY uses NC O2 at night-time at home. stable, no exacerbation at this time. Qualifies for 2LNC O2 with ambulation, but not at rest-Rx provided for home [employer] upon discharge (6) Anxiety disorder: Stable -Continue Celexa, BuSpar Unclear if on Topamax for anxiety or for headache prevention? (7) DVT prophylaxis: Lovenox SQ was provided PT,OT evals done --- OT recommend home with home health, PT recommends rehab Patient prefers to go home with home health-stable for dc today Total Time Total Time Spent Total Time Spent (In Minutes): >30 min Total Time Includes: Examination of the Patient, Discharge Planning and Medic ation Reconciliation Discharge Plan Discharge Items Patient Disposition: Home - Home Health Services Reason For Visit: SYMPTOMATIC BRADYCARDIA Discharge Diagnosis: Symptomatic bradycardia Condition: Good Discharge Goals: Diagnostic testing, Improve disease control and Therapeutic intervention Activity: Resume your previous activity Lifting: None Bathing: Keep incision dry Exercise/Sports: As tolerated Non-emergency contact: Primary Care Provider and Risk Assessor Call non-emergency contact if: you have any medication questions, your symptoms worsen, your pain is not controlled, your pain is worsening, your pain is unusual for you, your pain is concerning for you, you have a fever, your temperature is above 101, your wound has increased redness, your wound has increased drainage and your wound pain has increased Follow-up/Referrals: Serafin Borges MD [Physician] - 09/05/18 11:00 am (Please, follow up at [facility] Office for a check of your incision site on TuesdaySeptember 05 at 11:00 am. *This office is located in [address] [facility] - big building next to this hospital. If you need to change this appointment, call the office at [phone].) Rah Pulido [Primary Care Provider] - 09/07/18 2:15 pm (Please, follow up with Dr. Pulido on September 07 at 2:15 pm. *If you need to change this appointment, call the office at [phone].) Diet: Carb Consistent or DM2 and Heart Healthy Addtl Provider Instructions: You were admitted for low heart rates and had a pacemaker placed. Please do not lift your left arm above the level of your shoulder for at least 2 weeks; no lifting over 5 lbs. Please keep your follow up appointment as scheduled with Dr. Borges. Your blood glucose was lower here than it likely usually is at home and your insulin doses were decreased by a lot here. Please only take 30 units twice a day of your Novolin 70/30 and then increase back to your usual doses of insulin as before if your blood glucose rises > 250 with your checks. You can contact your PCP to ask what to do with your insulin if this happens. You need to use oxygen at 2 L via your nasal cannula any time you walk around and all night long. Please follow up with your PCP as scheduled for you. Prescriptions: Continued furosemide 40 mg tablet 40 mg PO DAILY RF: 0 atorvastatin 40 mg tablet 40 mg PO HS RF: 0 isosorbide mononitrate 30 mg tablet extended release 24 hr 30 mg PO DAILY RF: 0 cyanocobalamin (vitamin B-12) [Vitamin B-12] 1,000 mcg Tablet 1,000 mcg PO DAILY RF: 0 topiramate 25 mg tablet 25 mg PO DAILY RF: 0 clopidogrel 75 mg Tablet 75 mg PO DAILY RF: 0 aspirin 81 mg Tablet,Delayed Release (Dr/Ec) 81 mg PO DAILY RF: 0 citalopram 20 mg tablet 20 mg PO DAILY RF: 0 buspirone 10 mg tablet 10 mg PO BID RF: 0 lisinopril 5 mg tablet 5 mg PO DAILY RF: 0 Ocuvite Adult 50 Plus 250-5-1 mg Capsule 1 cap PO DAILY RF: 0 melatonin 5 mg Tablet 5 mg PO HS PRN (Reason: Sleep) RF: 0 Changed Novolin 70-30 FlexPen U-100 100 unit/mL (70-30) Insulin Pen 30 unit SUBCUT QPM Qty: 0 RF: 0 Novolin 70-30 FlexPen U-100 100 unit/mL (70-30) Insulin Pen 30 unit SUBCUT QAM Qty: 0 RF: 0 Stand-Alone Forms: [facility] Discharge Orders: Discharge Order (Routine); Ordered 09/01/18 Ordered By: Traci Le Admission Data Admit Date/Time: 08/26/18 11:09 Attending Provider: Traci Le Admit Provider: Traci Le Primary Care Provider: Rah Pulido Other Providers: Lalo Madrigal ; Hayes Ng ; Sudeep Cid Service: Telemetry Other Pending Studies at Discharge: No
[2018-09-01 15:17] VITALS: O2SAT 96
[2018-09-01] MEDS: ENOXAPARIN INJ 40 MG/0.4 ML SYR SQ SCH (15:54)
[2018-09-01 16:12] VITALS: BP 131/76; TEMP 98.6
== END 2018-09-01 16:10 | disposition home health service (06) | DRG 243 ==
LOC: ED 09:48 → SUATTDRO 11:09 → 1E 11:09 → 2S 08-29 13:28

== ENCOUNTER 2022-04-11 13:31 | Inpatient (IN) ==
[2022-04-11 14:02] LABS: Basophils # (auto) 0.02 K/uL (0-0.2); Basophils % (auto) 0.3 %; Eosinophils # (auto) 0.17 K/uL (0-0.50); Eosinophils % (auto) 2.3 %; Hematocrit (blood only) 41.9 % (34.1-44.9); Hemoglobin 13.6 g/dl (12.0-16.0); Immature Granulocytes # (auto) 0.02 K/uL (0.00-0.02); Immature Granulocytes % (auto) 0.3 %; Lymphocytes # (auto) 2.02 K/uL (1.2-3.4); Lymphocytes % (auto) 27.5 %; Mean Corpuscular Hemoglobin 30.6 pg (25.0-34.0); Mean Corpuscular Hgb Conc 32.5 g/dL (32.0-36.0); Mean Corpuscular Volume 94.4 fL (80.0-100.0); Mean Platelet Volume 9.8 fL (9.4-12.3); Monocytes # (auto) 0.52 K/uL (0.24-0.82); Monocytes % (auto) 7.1 %; Neutrophils % (auto) 62.5 %; Platelet Count 171 K/uL (130-400); RDW Coefficient of Variation 13.2 % (11.5-14.5); RDW Standard Deviation 45.6 fL (36.4-46.3); Red Blood Count 4.44 M/uL (3.93-5.22); White Blood Count 7.35 K/ul (4.8-10.8)
[2022-04-11 14:15] LABS: INR 1.2 (0.9-1.1); Partial Thromboplastin Ratio 1.2; Partial Thromboplastin Time 31.9 Seconds (21.0-31.0); Prothrombin Time 12.4 Seconds (9.0-12.0)
[2022-04-11 14:30] LABS: Albumin Globulin Ratio 1.2 (0.9-2); Albumin Level 3.5 gm/dl (3.4-5.0); BUN Creatinine Ratio 22.5 (10-20); Bilirubin,Total 0.4 mg/dl (0.2-1.0); Calcium 9.3 mg/dl (8.5-10.1); Creatinine Clr Calc Pharmacy 68.6 ml/min; Est GFR (African American) 90.7 ml/min; Est GFR (Non-African American) 78.2 ml/min; Potassium 3.8 mmol/L (3.5-5.1); Total Protein 6.5 gm/dl (6.0-8.3)
[2022-04-11] MEDS ORDERED: ACETAMINOPHEN 1,000 MG/100 ML VIAL IV STA (14:59)
[2022-04-11] MEDS ORDERED: DEXTROSE 50% 50 ML SYRINGE IV ONE (14:59)
--- NOTE | 2022-04-11 15:08 | Emergency Department Note ---
Impression & Plan Acute head trauma, Fall, Upper back pain, Acute right hip pain, Ambulatory dysfunction ED Provider Note NAME: YUE RIGGS AGE: 86 SEX: F : 1935 ARRIVES VIA: Ambulance INFORMANT: [Patient] ED PROVIDER(S): [Benigno Macias MD] CHIEF COMPLAINT: Fall HISTORY OF PRESENT ILLNESS: The patient is an 86-year-old female who states that somehow, her shoes got twisted and she lost her footing and fell. She landed on her back. She did strike her head. She is on Eliquis. There was no loss of consciousness. The patient had a glazed look in her eyes though as per family after the fall. The patient complains of some moderate right hip pain. She has a hard time wal earnest because of the pain. She states that her fall actually occurred about 10 hours ago. There is no neck pain. She does complain of some upper thoracic pain though. She has no lower back pain. No chest pain or abdominal pain. The patient states that she was in baseline health yesterday. This fall was mechanical. REVIEW OF SYSTEMS: See HPI for pertinent positives and negatives. A total of ten systems were reviewed and were otherwise negative. PMHx/PSHx: See Below SOCIAL HISTORY: See Below. PHYSICAL EXAM: GENERAL: Patient is in no acute distress. HEENT: Mucous membranes moist, no nasal congestion, no scleral icterus. NECK: No stridor, no adenopathy, nontender cervical spine, trachea is midline. LUNGS: Clear to auscultation bilaterally, no wheeze, no rhonchi, breath sounds equal. HEART: 2/6 systolic murmur, regular rate and rhythm. ABDOMEN: Soft, nontender, bowel sounds positive, no peritonitis. Obese. There is a yeastlike rash in the groin creases. EXTREMITIES: No cyanosis. The patient has some mild bilateral pedal edema. I can move the right hip and right knee with minimal pain. There is some subtle shortening of the right leg when compared to the left. There is a small skin tear/abrasion to the right posterior elbow. There is no laceration requiring repair. There is no pain to move the right elbow joint. No right elbow joint effusion. NEUROLOGIC: Oriented x 3, no acute motor or sensory deficits, no focal weakness. SKIN: No rash, no jaundice, no diaphoresis. Back: Tender to the upper thoracic spine, no contusion. No lower thoracic spine discomfort DIFFERENTIAL DIAGNOSIS: Intracranial bleeding, skull fracture, cervical spine or thoracic spine injury, abdominal or chest trauma, hip or pelvic fracture, among others. EMERGENCY DEPARTMENT COURSE/PROCEDURES: ECG: Indication was fall. The ECG shows an atrial pacemaker with a rate of 67. The AV conduction is prolonged. There is a right bundle branch block. There is no ST elevation, no PVCs. The QTc is 483. Continuous Cardiac Monitoring: An order was placed for continuous cardiac monitoring. The monitor shows a rate of 85 with an atrial pacemaker. MEDICAL DECISION MAKING: There is no leukocytosis or concerning anemia. There is a normal platelet count. INR is slightly elevated, likely from her Eliquis use. No renal failure. Glucose was slightly low but the patient was asymptomatic. No liver enzyme elevation. Urinalysis did not show infection. COVID test returned negative. Chest x-ray did not show pneumonia or CHF. Brain CT showed no acute bleed or mass-effect. C-spine CT showed no acute fracture. Thoracic spine CT showed no acute fracture--some potential older compression fractures were seen along the lower thoracic spine, the patient is not tender to the lower portion of her T-spine. Pelvis, right hip and right femur films were performed, no fractures were seen. The patient only wanted Tylenol for pain. This was given IV. She was given a small mount of IV dextrose because of her lower blood sugar. The patient did attempt an ambulatory trial with a walker. She was able to bear weight and walk but had extreme difficulty. The family was concerned that she was not safe for discharge home. I did speak with the patient and her family, I spoke with case management, the on-call hospitalist was consulted. In short, the patient has suffered head trauma, a right elbow skin tear, a right hip contusion and an upper thoracic contusion. No serious injuries found from this fall. Past Med/Surg History Medical History Anxiety Atrial flutter CAD (coronary artery disease) Mild to moderate nonobstructive CAD per cardio records Cardiac cath 2016- showed LM: normal, LAD: 30-40%, LCx: mild CAD, RCA: 30-40% Cardiac pacemaker Placed for SSS Last checked 12/22/21 (report not available)- follows w/ [facility] Chronic obstructive pulmonary disease CKD (chronic kidney disease), stage III Congestive heart failure Diabetes Type II Fall Hypertension On anticoagulant therapy xarelto On home oxygen therapy 3 lpm via [place]- mostly at night - PRN during the day Poor historian PAT interview done by son- unsure of many things- pt has mild cognitive issues per son Pre-syncope Surgical History H/O section S/P cholecystectomy Status post cardiac pacemaker procedure Family History Father Hypertension Social History Smoking Status: Never smoker Second Hand Exposure: No; Hx Alcohol Use: No Hx Substance Use: No Preferred Language: Uzbek Communication Ability: Effective [employer] Required: No Beliefs That Will Affect Care: None marital status: Current Living Situation: Spouse and Family current occupational status: retired Feels Safe at Home: Yes Assistive Devices: Oxygen - at Night, Oxygen - Continuous and Walker Allergies Allergies Allergy/AdvReac Type Severity Reaction Status Date / Time No Known Allergies Allergy Unverified 04/11/22 18:50 Home Meds Home Medications Medication Instructions Recorded Confirmed atorvastatin 40 mg tablet 40 mg PO HS 08/26/18 04/11/22 buspirone 10 mg tablet 10 mg PO BID 08/26/18 04/11/22 citalopram 20 mg tablet 20 mg PO QAM 08/26/18 04/11/22 cyanocobalamin (vitamin B-12) 1,000 mcg PO QAM 08/26/18 04/11/22 1,000 mcg tablet (Vitamin B-12) furosemide 40 mg tablet 40 mg PO QAM 08/26/18 04/11/22 topiramate 25 mg tablet 25 mg PO QAM 08/26/18 04/11/22 nitroglycerin 0.4 mg sublingual 0.4 mg sublingual Q5M PRN Chest 12/20/18 04/11/22 tablet Pain #25 tabs rivaroxaban 20 mg tablet (Xarelto) 20 mg PO QAM 12/23/21 04/11/22 acetaminophen 650 mg 1,300 mg PO TID 04/11/22 04/11/22 tablet,extended release dulaglutide 0.75 mg/0.5 mL 0.75 mg subcut WK 04/11/22 04/11/22 subcutaneous pen injector (Trulicity) gabapentin 100 mg capsule 400 mg PO TID 04/11/22 04/11/22 insulin NPH-regular 70-30 U-100 18 unit subcut QPM 04/11/22 04/11/22 insulin 100 unit/mL subcutaneous pen (Novolin 70-30 FlexPen U-100 Insulin) isosorbide mononitrate 30 mg 30 mg PO QAM 04/11/22 04/11/22 tablet,extended release 24 hr loratadine 10 mg tablet 10 mg PO DAILY 04/11/22 04/11/22 melatonin 10 mg tablet 10 mg PO HS PRN Insomnia 04/11/22 04/11/22 vit A 300 mcg-C 200 mg-E 27 1 tab PO DAILY 04/11/22 04/11/22 mg-lutein 2 mg and minerals tablet (Ocuvite with Lutein) Previous Rx's Medication Instructions Recorded insulin NPH-regular 70-30 U-100 30 unit (0.3 mL) subcut QAM #0 mL 09/01/18 insulin 100 unit/mL subcutaneous pen (Novolin 70-30 FlexPen U-100 Insulin) Results & Data (ED) Vital Signs Vital Signs - 24 hr 04/11/22 13:47 04/11/22 15:33 Temperature 36.6 C Temperature Source Oral Pulse Rate 85 Pulse Rate [Apical] 60 Pulse Rhythm Regular Respiratory Rate 20 20 Respiratory Effort / Characteristics Non-Labored Non-Labored Respiratory Depth Normal Normal Blood Pressure 130/73 Blood Pressure [Right Arm] 131/54 L Blood Pressure Mean 92 Blood Pressure Mean [Right Arm] 79 Pulse Oximetry 95 93 Oxygen Delivery Method Room Air Room Air Sepsis Recent Fever Within 48 Hours No Sepsis New/Unexplained Change in Mental Status No Sepsis Action Taken by Nursing No Action Required Home Medications Current Medication List: was personally reviewed by me Laboratory Data Attestation: I reviewed the patient's lab results. Result diagrams: 04/11/22 13:40 04/11/22 13:40 Lab Results 04/11/22 04/11/22 04/11/22 Range/Units 13:40 13:40 13:40 WBC 7.35 (4.8-10.8) K/ul RBC 4.44 (3.93-5.22) M/uL Hgb 13.6 (12.0-16.0) g/dl Hct 41.9 (34.1-44.9) % MCV 94.4 (80.0-100.0) fL MCH 30.6 (25.0-34.0) pg MCHC 32.5 (32.0-36.0) g/dL RDW Std Deviation 45.6 (36.4-46.3) fL RDW Coeff of Chun 13.2 (11.5-14.5) % Plt Count 171 (130-400) K/uL MPV 9.8 (9.4-12.3) fL Immature Gran % (Auto) 0.3 % Neut % (Auto) 62.5 % Lymph % (Auto) 27.5 % Wharton % (Auto) 7.1 % Eos % (Auto) 2.3 % Baso % (Auto) 0.3 % Neut # (Auto) 4.60 (1.4-6.5) K/uL Lymph # (Auto) 2.02 (1.2-3.4) K/uL Wharton # (Auto) 0.52 (0.24-0.82) K/uL Eos # (Auto) 0.17 (0-0.50) K/uL Baso # (Auto) 0.02 (0-0.2) K/uL Immature Gran # (Auto) 0.02 (0.00-0.02) K/uL PT 12.4 H (9.0-12.0) Seconds INR 1.2 H (0.9-1.1) APTT 31.9 H (21.0-31.0) Seconds PTT Ratio 1.2 Sodium 144 (136-145) mmol/L Potassium 3.8 (3.5-5.1) mmol/L Chloride 109 H (98-107) mmol/L Carbon Dioxide 32 (21-32) mmol/L Anion Gap 3 (3-11) BUN 16 (6-23) mg/dl Creatinine 0.71 (0.6-1.2) mg/dl Est Cr Clr Drug Dosing 68.6 ml/min Est GFR ( Amer) 90.7 ml/min Est GFR (Non-Af Amer) 78.2 ml/min BUN/Creatinine Ratio 22.5 H (10-20) Glucose 61 L (70-99(Fasting)) mg/dl POC Glucose (70-99) mg/dl Calcium 9.3 (8.5-10.1) mg/dl Total Bilirubin 0.4 (0.2-1.0) mg/dl AST 12 L (13-39) U/L ALT 5 L (7-52) U/L Alkaline Phosphatase 104 (34-104) U/L Total Protein 6.5 (6.0-8.3) gm/dl Albumin 3.5 (3.4-5.0) gm/dl Globulin 3.0 (2.5-4.0) gm/dl Albumin/Globulin Ratio 1.2 (0.9-2) Urine Color Urine Appearance (Clear) Urine pH (4.5-7.5) Ur Specific Wilder (1.000-1.030) Urine Protein (Negative) Urine Glucose (UA) (Negative) Urine Ketones (Negative) Urine Blood (Negative) Urine Nitrite (Negative) Urine Bilirubin (Negative) Urine Urobilinogen (Negative) Ur Leukocyte Esterase (Negative) Urine WBC (Auto) (0-5) /hpf Urine RBC (Auto) (0-4) /hpf U Hyaline Cast (Auto) (0-5) /lpf U Epithel Cells (Auto) (0-5) /lpf Urine Bacteria (Auto) (Negative) Urine Yeast 04/11/22 04/11/22 04/11/22 Range/Units 14:43 15:56 17:01 WBC (4.8-10.8) K/ul RBC (3.93-5.22) M/uL Hgb (12.0-16.0) g/dl Hct (34.1-44.9) % MCV (80.0-100.0) fL MCH (25.0-34.0) pg MCHC (32.0-36.0) g/dL RDW Std Deviation (36.4-46.3) fL RDW Coeff of Chun (11.5-14.5) % Plt Count (130-400) K/uL MPV (9.4-12.3) fL Immature Gran % (Auto) % Neut % (Auto) % Lymph % (Auto) % Wharton % (Auto) % Eos % (Auto) % Baso % (Auto) % Neut # (Auto) (1.4-6.5) K/uL Lymph # (Auto) (1.2-3.4) K/uL Wharton # (Auto) (0.24-0.82) K/uL Eos # (Auto) (0-0.50) K/uL Baso # (Auto) (0-0.2) K/uL Immature Gran # (Auto) (0.00-0.02) K/uL PT (9.0-12.0) Seconds INR (0.9-1.1) APTT (21.0-31.0) Seconds PTT Ratio Sodium (136-145) mmol/L Potassium (3.5-5.1) mmol/L Chloride (98-107) mmol/L Carbon Dioxide (21-32) mmol/L Anion Gap (3-11) BUN (6-23) mg/dl Creatinine (0.6-1.2) mg/dl Est Cr Clr Drug Dosing ml/min Est GFR ( Amer) ml/min Est GFR (Non-Af Amer) ml/min BUN/Creatinine Ratio (10-20) Glucose (70-99(Fasting)) mg/dl POC Glucose 61 L* 108 H (70-99) mg/dl Calcium (8.5-10.1) mg/dl Total Bilirubin (0.2-1.0) mg/dl AST (13-39) U/L ALT (7-52) U/L Alkaline Phosphatase (34-104) U/L Total Protein (6.0-8.3) gm/dl Albumin (3.4-5.0) gm/dl Globulin (2.5-4.0) gm/dl Albumin/Globulin Ratio (0.9-2) Urine Color Yellow Urine Appearance Cloudy A (Clear) Urine pH 7.0 (4.5-7.5) Ur Specific Wilder 1.018 (1.000-1.030) Urine Protein Negative (Negative) Urine Glucose (UA) Negative (Negative) Urine Ketones Negative (Negative) Urine Blood Negative (Negative) Urine Nitrite Negative (Negative) Urine Bilirubin Negative (Negative) Urine Urobilinogen Negative (Negative) Ur Leukocyte Esterase Negative (Negative) Urine WBC (Auto) 1-5 (0-5) /hpf Urine RBC (Auto) 0-4 (0-4) /hpf U Hyaline Cast (Auto) 0 (0-5) /lpf U Epithel Cells (Auto) >30 H (0-5) /lpf Urine Bacteria (Auto) Negative (Negative) Urine Yeast Not Reportable Administered Medications Discontinued Medications Dextrose (Dextrose 50% 50 Ml Syringe) 25 ml IV NOW ONE Stop: 04/11/22 15:00 Last Admin: 04/11/22 15:32 Dose: 25 ml Documented By: EMY Acetaminophen (Ofirmev) 1,000 mg in 100 mls @ 400 mls/hr IV NOW STA Stop: 04/11/22 15:13 Last Infusion: 04/11/22 15:52 Dose: 0 mls/hr Documented By: Admin: 04/11/22 15:32 Dose: 400 mls/hr Documented By: EMY Imaging Data Radiologist's Impression: Cervical Spine CT 04/11/22 14:38 CT cervical spine wo con CLINICAL HISTORY: fall TECHNIQUE: Multidetector row helical CT of the cervical spine was performed without administration of intravenous contrast. Coronal and sagittal ref ormations were obtained. Automated dose lowering techniques and/or adjustment according to patient size were utilized for this exam. Comparison: Comparison is made to CT cervical spine 04/15/2016 FINDINGS: No acute fractures or subluxations are identified. The vertebral body heights and disk spaces are well maintained. The alignment is normal. Soft tissues are unremarkable. IMPRESSION: No evidence of acute bony injury. ACT 112: Negative or not required by law. Electronically signed by: Regulo Jones M.D. 04/11/2022 4:26 PM Chest X-Ray 04/11/22 14:38 XR chest 1V portable CLINICAL HISTORY: fall TECHNIQUE: Single frontal radiograph of the chest was obtained. Comparison: Comparison is made to chest radiograph 08/30/2018 FINDINGS: Dual lead pacemaker is seen. Calcified aortic knob is seen. Lungs are underinflated but clear. No evidence of pleural effusion or pneumothorax. Bilateral shoulder arthroplasties are seen. IMPRESSION: No acute chest disease. ACT 112: Negative or not required by law. Electronically signed by: Regulo Jones M.D. 04/11/2022 4:[address] 04/11/22 14:38 CT head/brain wo con CLINICAL HISTORY: fall Technique: Contiguous axial CT images of the head were acquired from the base of the skull to the vertex without intravenous contrast administration. Images were viewed in brain, subdural and bone windows. Automated dose lowering techniques and/or adjustment according to patient size were utilized for this exam. Comparison: Comparison is made to CT head 04/15/2016 Findings: The ventricles, basal cisterns, and cerebral sulci are normal. There is no acute intracranial hemorrhage or evidence of acute territorial infarction. Neither m ass effect, shift of the midline structures, nor abnormal extra-axial fluid collections are shown. Imaged portions of the paranasal sinuses and mastoid air cells are clear. The orbits appear normal. There are no acute fractures of the calvaria or scalp swelling. Impression: No acute intracranial hemorrhage, no evidence of acute territorial infarction or other acute intracranial disease process. ACT 112: Negative or not required by law. Electronically signed by: Regulo Jones M.D. 04/11/2022 4:35 PM Femur X-Ray 04/11/22 14:39 XR pelvis 1-2V routine, XR femur RT 2V routine CLINICAL HISTORY: fall TECHNIQUE: A single frontal view of the pelvis was obtained. 2 views of the right femur were obtained. Comparison: None available at the time of this dictation. FINDINGS: There is no evidence of an acute fracture. Degenerative changes are seen in the hip joints and lumbar spine as well as the knee. No soft tissue abnormality is seen. IMPRESSION: Degenerative changes without evidence of acute fracture. ACT 112: Negative or not required by law. Electronically signed by: Regulo Jones M.D. 04/11/2022 4:09 PM Pelvis X-Ray 04/11/22 14:39 XR pelvis 1-2V routine, XR femur RT 2V routine CLINICAL HISTORY: fall TECHNIQUE: A single frontal view of the pelvis was obtained. 2 views of the right femur were obtained. Comparison: None available at the time of this dictation. FINDINGS: There is no evidence of an acute fracture. Degenerative changes are seen in the hip joints and lumbar spine as well as the knee. No soft tissue abnormality is seen. IMPRESSION: Degenerative changes without evidence of acute fracture. ACT 112: Negative or not required by law. Electronically signed by: Regulo Jones M.D. 04/11/2022 4:[address] 04/11/22 14:59 CT thoracic spine wo con CLINICAL HISTORY: fall, upper back pain TECHNIQUE: Multidetector row helical CT of the thoracic spine was performed without administration of intravenous contrast. Coronal and sagittal reformations were obtained. Automated dose lowering techniques and/or adjustment according to patient size were utilized for this exam. CT DOSE: 2364.86 mGy.cm Comparison: Comparison is made to chest radiograph 09/09/[address] thorax 04/15/2016 FINDINGS: There is a compression deformity of T7 which is new from prior exam. T10 compression deformity is unchanged. There is also irregularity of the inferior endplate of L1. Degenerative changes are noted in the visualized spine. Surrounding soft tissues are unremarkable. IMPRESSION: Multilevel compression deformities which are new from 2016, most prominent at T7 and L1. Correlation with point tenderness is recommended to exclude acute fracture. ACT 112: Negative or not required by law. Electronically signed by: Regulo Jones M.D. 04/11/2022 4:45 PM Discharge Plan Visit Data Chief Complaint: Fall ED Provider: Benigno Macias Discharge Problem: Acute head trauma, Fall, Upper back pain, Acute right hip pain, Ambulatory dysfunction Patient Disposition: Admitted As Inpatient Condition: Good Discharge Instructions Interventions: ED Discharge Assessment Last Done: 04/11/22 21:04
--- NOTE | 2022-04-11 16:11 | XRay Report ---
XR pelvis 1-2V routine, XR femur RT 2V routine CLINICAL HISTORY: fall TECHNIQUE: A single frontal view of the pelvis was obtained. 2 views of the right femur were obtained . Comparison: None available at the time of this dictation. FINDINGS: There is no evidence of an acute fracture. Degenerative changes are seen in the hip joints and lumbar spine as well as the knee. No soft tissue abnormality is seen. IMPRESSION: Degenerative changes without evidence of acute fracture. ACT 112: Negative or not required by law. Electronically signed by: Regulo Jones M.D. 04/11/2022 4:09 PM
--- NOTE | 2022-04-11 16:11 | XRay Report ---
XR chest 1V portable CLINICAL HISTORY: fall TECHNIQUE: Single frontal radiograph of the chest was obtained. Comparison: Comparison is made to chest radiograph 08/30/2018 FINDINGS: Dual lead pacemaker is seen. Calcified aortic knob is seen. Lungs are underinflated but clear. No david dence of pleural effusion or pneumothorax. Bilateral shoulder arthroplasties are seen. IMPRESSION: No acute chest disease. ACT 112: Negative or not required by law. Electronically signed by: Regulo Jones M.D. 04/11/2022 4:09 PM
--- NOTE | 2022-04-11 16:28 | CT Scan Report ---
CT cervical spine wo con CLINICAL HISTORY: fall TECHNIQUE: Multidetector row helical CT of the cervical spine was performed without administration of intravenous contrast. Coronal and sagittal reformations were obtained. Automated dose lowering techn iques and/or adjustment according to patient size were utilized for this exam. Comparison: Comparison is made to CT cervical spine 04/15/2016 FINDINGS: No acute fractures or subluxations are identified. The vertebral body heights and disk spaces are wel l maintained. The alignment is normal. Soft tissues are unremarkable. IMPRESSION: No evidence of acute bony injury. ACT 112: Negative or not required by law. Electronically signed by: Regulo Jones M.D. 04/11/2022 4:26 PM
--- NOTE | 2022-04-11 16:37 | CT Scan Report ---
CT head/brain wo con CLINICAL HISTORY: fall Technique: Contiguous axial CT images of the head were acquired from the base of the skull to the nirmala cherie without intravenous contrast administration. Images were viewed in brain, subdural and bone [facility]. Automated dose lowering techniques and/or adjustment according to patient size were utilized for this exam. Comparison: Comparison is made to CT head 04/15/2016 Findings: The ventricles, basal cisterns, and cerebral sulci are normal. There is no acute intracranial hemorrh age or evidence of acute territorial infarction. Neither mass effect, shift of the midline structures , nor abnormal extra-axial fluid collections are shown. Imaged portions of the paranasal sinuses and mastoid air cells are clear. The orbits appear normal. There are no acute fractures of the calvaria or scalp swelling. Impression: No acute intracranial hemorrhage, no evidence of acute territorial infarction or other acute intracra nial disease process. ACT 112: Negative or not required by law. Electronically signed by: Regulo Jones M.D. 04/11/2022 4:35 PM
--- NOTE | 2022-04-11 16:47 | CT Scan Report ---
CT thoracic spine wo con CLINICAL HISTORY: fall, upper back pain TECHNIQUE: Multidetector row helical CT of the thoracic spine was performed without administration of intravenous contrast. Coronal and sagittal reformations were obtained. Automated dose lowering techn iques and/or adjustment according to patient size were utilized for this exam. CT DOSE: 2364.86 mGy.cm Comparison: Comparison is made to chest radiograph 09/09/[address] thorax 04/15/2016 FINDINGS: There is a compression deformity of T7 which is new from prior exam. T10 compression deformity is unc hanged. There is also irregularity of the inferior endplate of L1. Degenerative changes are noted in the visualized spine. Surrounding soft tissues are unremarkable. IMPRESSION: Multilevel compression deformities which are new from 2016, most prominent at T7 and L1. Correlation with point tenderness is recommended to exclude acute fracture. ACT 112: Negative or not required by law. Electronically signed by: Regulo Jones M.D. 04/11/2022 4:45 PM
[2022-04-11 17:11] LABS: Appearance Urine Cloudy (Clear); Bacteria Urine Automated Negative (Negative); Bilirubin Urine Negative (Negative); Blood Urine Negative (Negative); Cast Urine Automated 0 /lpf (0-5); Color Urine Yellow; Epithelial Cell Urine Auto >30 /lpf (0-5); Glucose Urine UA Negative (Negative); Ketones Urine Negative (Negative); Leukocyte Esterase Urine Negative (Negative); Nitrite Urine Negative (Negative); Protein Urine Negative (Negative); RBC Urine Automated 0-4 /hpf (0-4); Specific Gravity Urine 1.018 (1.000-1.030); Urobilinogen Urine Negative (Negative)
--- NOTE | 2022-04-11 17:53 | History & Physical Report ---
Date of Service April 11, 2022 Assessment & Plan (1) Pre-syncope: (2) Fall: (3) Diabetes: (4) COPD (chronic obstructive pulmonary disease): (5) Chronic diastolic (congestive) heart failure: (6) Anxiety disorder: (7) Pacemaker: Plan 86 year old with fall and LOC. Imaging negative for; SDH or SAH; repeat CT of head in a.m. on Xarelto discussed with neurology okay to continue unless bleed noted on imaging or decline status. Presyncope: Status post fall: Recent fall 07/2020 status post small SDH and subtle small SAH with SICU admission at that time aspirin, and Plavix was discontinued and patient transition to Xarelto Discussed on the phone with Dr. Balderas with Neurology; recommend repeat CT scan and no need to hold Xaralto Ortho BP ordered PT/OT consults placed hip/pelvis and femur x-rays negative: spine x-ray: [id number] fracture is new but she is not having any pain where that is so not sure if related to this fall; consider ortho spine consult if painful; otherwise f/u OPT CAD: Pacemaker: Atrial flutter: EKG 102 atrial paced rhythm with RBBB Pacemaker placed [address] Borges for bradycardia/SSS Diagnosed atrial flutter 08/2020; talked to Tom from [employer]: pacer was interrogated 4 days ago. he pulled up the report and everything was operational; no ventricular or atrial arrhythmias Await Cards consult Orthostatic BPs ordered Diabetes mellitus type 2: Last A1C 02/15/22: 7.2 Takes NPH 30U in AM 30 U in PM; also takes Trulicity SQ weekly; last dose this morning. FSBS and ACHS and SSI COPD: Wears 2 L nasal cannula at bedtime and as needed during daytime Denies orthopnea HLD: Takes atorvastatin; continue lipid panel 01/2022: TG 93, HDL 55, LDL 79 Anxiety Disorder: Headaches: Takes Buspirone; continue Takes Topiramate; continue Disposition: PCP: Dr. Romie Hoang VTE Prophylaxis: Teds/SCDs for now Code: DNR/DNI I personally was able to review all current laboratory work and diagnostic images obtained in the ED. Additionally, I was able to review the patients past medication reconciliation and history with direct visualization in the patients chart. This patient was seen in collaboration with Dr. Herzog. History of Present Illness Chief Complaint: Fall Primary Care Provider: Deborah Hoang DO Ms. Renuka Kramre is an 86 y/o female that presented to the [facility] ED s/p fall and reports that she was at home and her foot turned when she was in front of her stove and she 'fell flat on her back'. She lives with her , grandson, and brother. She denies LOC. Her grandson reports that he did not feel that she could recognize his voice and had a 'hazy gaze'. She reports that everyone was trying to help her. She felt SOB after she felt but prior to the fall felt completely fine. She reports that her head hurt and she had a big lump on her head. patient currently denies DOWLING, dizziness, CP, palpitations, N/V/D, fever/chills, or other illness, dysuria. Femur/pelvis/spine diagnostics all negative however compression fracture is new but she is not having any pain where that is so not sure if related to this fall Patient does report that she had a fall in 08/2020 and was in Neuro ICU. She is on xarelto s/p Afib and pacemaker placement. Patient is a poor historian regarding recent and past events. Additional PMH that includes: HTN, anxiety, CAD s/p pacemaker, COPD, CKD3, CHF, DM2. Patient is sitting upright in her bed in no apparent distress. She is able to sit on the side of the bed with minimal assistance. Pt reports that her head hurts. Patient to be admitted under hospitalist service for further evaluation and management please see A/P for further details. Allergies Allergy/AdvReac Type Severity Reaction Status Date / Time No Known Allergies Allergy Unverified 04/11/22 18:50 Home Medications Medication Instructions Recorded Confirmed Type atorvastatin 40 mg tablet 40 mg PO HS 08/26/18 04/11/22 History buspirone 10 mg tablet 10 mg PO BID 08/26/18 04/11/22 History citalopram 20 mg tablet 20 mg PO QAM 08/26/18 04/11/22 History cyanocobalamin (vitamin B-12) 1,000 mcg PO QAM 08/26/18 04/11/22 History 1,000 mcg tablet (Vitamin B-12) furosemide 40 mg tablet 40 mg PO QAM 08/26/18 04/11/22 History topiramate 25 mg tablet 25 mg PO QAM 08/26/18 04/11/22 History insulin NPH-regular 70-30 U-100 30 unit (0.3 mL) subcut QAM #0 mL 09/01/18 04/11/22 Rx insulin 100 unit/mL subcutaneous pen (Novolin 70-30 FlexPen U-100 Insulin) nitroglycerin 0.4 mg sublingual 0.4 mg sublingual Q5M PRN Chest 12/20/18 04/11/22 History tablet Pain #25 tabs rivaroxaban 20 mg tablet (Xarelto) 20 mg PO QAM 12/23/21 04/11/22 History acetaminophen 650 mg 1,300 mg PO TID 04/11/22 04/11/22 History tablet,extended release dulaglutide 0.75 mg/0.5 mL 0.75 mg subcut WK 04/11/22 04/11/22 History subcutaneous pen injector (Trulicity) gabapentin 100 mg capsule 400 mg PO TID 04/11/22 04/11/22 History insulin NPH-regular 70-30 U-100 18 unit subcut QPM 04/11/22 04/11/22 History insulin 100 unit/mL subcutaneous pen (Novolin 70-30 FlexPen U-100 Insulin) isosorbide mononitrate 30 mg 30 mg PO QAM 04/11/22 04/11/22 History tablet,extended release 24 hr loratadine 10 mg tablet 10 mg PO DAILY 04/11/22 04/11/22 History melatonin 10 mg tablet 10 mg PO HS PRN Insomnia 04/11/22 04/11/22 History vit A 300 mcg-C 200 mg-E 27 1 tab PO DAILY 04/11/22 04/11/22 History mg-lutein 2 mg and minerals tablet (Ocuvite with Lutein) Past Med/Surg History Medical History Anxiety Atrial flutter CAD (coronary artery disease) Mild to moderate nonobstructive CAD per cardio records Cardiac cath 2016- showed LM: normal, LAD: 30-40%, LCx: mild CAD, RCA: 30-40% Cardiac pacemaker Placed for SSS Last checked 12/22/21 (report not available)- follows w/ [facility] Chronic obstructive pulmonary disease CKD (chronic kidney disease), stage III Congestive heart failure Diabetes Type II Fall Hypertension On anticoagulant therapy xarelto On home oxygen therapy 3 lpm via NC- mostly at night - PRN during the day Poor historian PAT interview done by son- unsure of many things- pt has mild cognitive issues per son Pre-syncope Surgical History H/O section S/P cholecystectomy Status post cardiac pacemaker procedure Family History Father Hypertension Social History Smoking Status: Former smoker Second Hand Exposure: Yes; Hx Alcohol Use: No Hx Substance Use: No Preferred Language: Swiss Communication Ability: Effective Police Superintendent Required: No Beliefs That Will Affect Care: None marital status: Current Living Situation: Spouse and Family current occupational status: retired Feels Safe at Home: Yes Assistive Devices: Glasses, Oxygen - at Night and Walker Review of Systems Review of Systems: Neuro: (-) Falls, trauma, slurred speech HEENT: (-) DOWLING, dizziness, dysphagia, visual or auditory changes CV: (-) CP, palpitations, swelling Resp: (-) SOB GI: (-) appetite changes, N/V/D, bowel changes : (-) urinary changes Skin: (-) rashes Psych: (-) anxiety, depression Physical Exam Physical Exam: See Dr. Herzog's addendum for physical assessment details Results & Data Results & Data ([facility]) Vital Signs (Past 12 Hours) Vital Signs Temp Pulse Pulse Resp BP BP Pulse Ox 04/11/22 15:33 60 20 131/54 L 93 04/11/22 13:47 36.6 C 85 20 130/73 95 O2 Del Method 04/11/22 15:33 Room Air 04/11/22 13:47 Room Air Laboratory Results Short CBC 04/11/22 Range/Units 13:40 WBC 7.35 (4.8-10.8) K/ul Hgb 13.6 (12.0-16.0) g/dl Hct 41.9 (34.1-44.9) % Plt Count 171 (130-400) K/uL BMP 11/13/22 13:40 Sodium 144 Potassium 3.8 Chloride 109 H Carbon Dioxide 32 BUN 16 Creatinine 0.71 Glucose 61 L Calcium 9.3 Liver Function 04/11/22 Range/Units 13:40 Total Bilirubin 0.4 (0.2-1.0) mg/dl AST 12 L (13-39) U/L ALT 5 L (7-52) U/L Alkaline Phosphatase 104 (34-104) U/L Albumin 3.5 (3.4-5.0) gm/dl Urine 04/11/22 Range/Units 17:01 Urine Color Yellow Urine Appearance Cloudy A (Clear) Urine pH 7.0 (4.5-7.5) Ur Specific [place] 1.018 (1.000-1.030) Urine Protein Negative (Negative) Urine Glucose (UA) Negative (Negative) Diagnostic Findings Cervical Spine CT 04/11/22 14:38 CT cervical spine wo con CLINICAL HISTORY: fall TECHNIQUE: Multidetector row helical CT of the cervical spine was performed without administration of intravenous contrast. Coronal and sagittal reformations were obtained. Automated dose lowering techniques and/or adjustment according to patient size were utilized for this exam. Comparison: Comparison is made to CT cervical spine 04/15/2016 FINDINGS: No acute fractures or subluxations are identified. The vertebral body heights and disk spaces are well maintained. The alignment is normal. Soft tissues are unremarkable. IMPRESSION: No evidence of acute bony injury. ACT 112: Negative or not required by law. Electronically signed by: Regulo Jones M.D. 04/11/2022 4:26 PM Chest X-Ray 04/11/22 14:38 XR chest 1V portable CLINICAL HISTORY: fall TECHNIQUE: Single frontal radiograph of the chest was obtained. Comparison: Comparison is made to chest radiograph 08/30/2018 FINDINGS: Dual lead pacemaker is seen. Calcified aortic knob is seen. Lungs are underinflated but clear. No evidence of pleural effusion or pneumothorax. Bilateral shoulder arthroplasties are seen. IMPRESSION: No acute chest disease. ACT 112: Negative or not required by law. Electronically signed by: Regulo Jones M.D. 04/11/2022 4:[address] 04/11/22 14:38 CT head/brain wo con CLINICAL HISTORY: fall Technique: Contiguous axial CT images of the head were acquired from the base of the skull to the vertex without intravenous contrast administration. Images were viewed in brain, subdural and bone windows. Automated dose lowering techniques and/or adjustment according to patient size were utilized for this exam. Comparison: Comparison is made to CT head 04/15/2016 Findings: The ventricles, basal cisterns, and cerebral sulci are normal. There is no acute intracranial hemorrhage or evidence of acute territorial infarction. Neither mass effect, shift of the midline structures, nor abnormal extra-axial fluid collections are shown. Imaged portions of the paranasal sinuses and mastoid air cells are clear. The orbits appear normal. There are no acute fractures of the calvaria or scalp swelling. Impression: No acute intracranial hemorrhage, no evidence of acute territorial infarction or other acute intracranial disease process. ACT 112: Negative or not required by law. Electronically signed by: Regulo Jones M.D. 04/11/2022 4:35 PM Femur X-Ray 04/11/22 14:39 XR pelvis 1-2V routine, XR femur RT 2V routine CLINICAL HISTORY: fall TECHNIQUE: A single frontal view of the pelvis was obtained. 2 views of the right femur were obtained. Comparison: None available at the time of this dictation. FINDINGS: There is no evidence of an acute fracture. Degenerative changes are seen in the hip joints and lumbar spine as well as the knee. No soft tissue abnormality is seen. IMPRESSION: Degenerative changes without evidence of acute fracture. ACT 112: Negative or not required by law. Electronically signed by: Regulo Jones M.D. 04/11/2022 4:09 PM Pelvis X-Ray 04/11/22 14:39 XR pelvis 1-2V routine, XR femur RT 2V routine CLINICAL HISTORY: fall TECHNIQUE: A single frontal view of the pelvis was obtained. 2 views of the right femur were obtained. Comparison: None available at the time of this dictation. FINDINGS: There is no evidence of an acute fracture. Degenerative changes are seen in the hip joints and lumbar spine as well as the knee. No soft tissue abnormality is seen. IMPRESSION: Degenerative changes without evidence of acute fracture. ACT 112: Negative or not required by law. Electronically signed by: Regulo Jones M.D. 04/11/2022 4:[address] 04/11/22 14:59 CT thoracic spine wo con CLINICAL HISTORY: fall, upper back pain TECHNIQUE: Multidetector row helical CT of the thoracic spine was performed without administration of intravenous contrast. Coronal and sagittal reformations were obtained. Automated dose lowering techniques and/or adjustment according to patient size were utilized for this exam. CT DOSE: 2364.86 mGy.cm Comparison: Comparison is made to chest radiograph 09/09/[address] thorax 04/15/2016 FINDINGS: There is a compression deformity of T7 which is new from prior exam. T10 compression deformity is unchanged. There is also irregularity of the inferior endplate of L1. Degenerative changes are noted in the visualized spine. Surrounding soft tissues are unremarkable. IMPRESSION: Multilevel compression deformities which are new from 2016, most prominent at T7 and L1. Correlation with point tenderness is recommended to exclude acute fracture. ACT 112: Negative or not required by law. Electronically signed by: Regulo Jones M.D. 04/11/2022 4:45 PM Code Status & VTE Plan Code Status DNR/DNI in the event of cardiac or respiratory arrest VTE Prophylaxis Plan VTE Prophylaxis will be ordered: Yes Supervising Physician Co-Signing Physician Notes Pt seen and examined by me, care coordinated w/ E. KATHARINE Cortez, pls see her note above for further detail. Pt is an 86 you F w/ hx of atrial flutter, sick sinus syndrome s/p pacemaker (2018), CAD, HTN, DMT type 2 , obesity who presents after fall. Patient reports falling in the morning in her kitchen, she feels it was a mechanical fall, however it was unwitnessed and family at the bedside report "glazed look" when she was down, and was not recognizing her son's voice. Of note, patient had episode in 2020 when she fell, and had small subdural and small subarachnoid hemorrhage, at that time she was diagnosed with atrial flutter. This time patient again hit her head, and has some visible bruising on her scalp, however CT scan negative for any intracranial hemorrhage. She is currently on Xarelto 20 mg daily. Vertebral compression fractures also noted on CT, however patient is not tender on palpation on physical exam. Currently she is lying in bed, in no acute distress, she is awake alert oriented and answering questions appropriately, however very poor historian. Patient's daughter is present at bedside. There is small ecchymosis and lump noted on patient's scalp. Lungs are clear to auscultation bilaterally without any wheezing rhonchi crackles. Heart sounds distant due to body habitus, but seem regular. Abdomen is soft, obese, nontender to palpation, with positive bowel sounds. There is no lower extremity edema noted. As mentioned above, no spinal tenderness to palpation, no paraspinal tenderness to palpation. Skin is warm and dry. Discussed w/ neurology, will rescan head in the morning. Per neurology no need to hold xarelto at this time. Will cont. neuro checks and close monitoring overnight. Pt will be admitted to tele. Pacer interrogation ordered. Will further discuss w/ cardiology in the morning. 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
[2022-04-11] MEDS ORDERED: CARBOHYDRATES FOR HYPOGLYCEMIA PO PRN (21:21)
[2022-04-11] MEDS ORDERED: POLYETHYLENE (MIRALAX) 17 GM PACK PO PRN (21:21)
[2022-04-11] MEDS ORDERED: PHARMACY GLYCEMIC MGMT CONSULT PRN (21:21)
[2022-04-11] MEDS ORDERED: DEXTROSE 50% 50 ML SYRINGE IV PRN (21:21)
[2022-04-11] MEDS ORDERED: GLUCOSE 10 TAB/TUBE PO PRN (21:21)
[2022-04-11] MEDS ORDERED: ALUMINUM/MAGNESIUM SUSP 30 ML UDC PO PRN (21:21)
[2022-04-11] MEDS ORDERED: ONDANSETRON INJ 2 MG/ML 2 ML VIAL IV PRN (21:21)
[2022-04-11] MEDS ORDERED: GLUCOSE 40% GEL 15 GM TUBE PO PRN (21:21)
[2022-04-11] MEDS ORDERED: ACETAMINOPHEN 325 MG TAB PO PRN (21:21)
[2022-04-11] MEDS ORDERED: GLUCAGON FOR INJ 1 MG VIAL SQ PRN (21:21)
[2022-04-11] MEDS ORDERED: MAGNESIUM HYDROXIDE SUSP 30 ML UDC PO PRN (21:21)
[2022-04-11] MEDS: INSULIN ASPART PER UNIT SC SCH (22:31)
[2022-04-11] MEDS ORDERED: MELATONIN 3 MG TAB PO PRN (22:33)
[2022-04-11] MEDS: ACETAMINOPHEN 500 MG TAB PO SCH (23:12)
[2022-04-11] MEDS: GABAPENTIN 400 MG CAP PO SCH (23:14)
[2022-04-11] MEDS: ATORVASTATIN 40 MG TAB PO SCH (23:14)
[2022-04-11] MEDS: busPIRone 5 MG TAB PO SCH (23:15)
[2022-04-12 08:02] LABS: Hematocrit (blood only) 41.1 % (34.1-44.9); Hemoglobin 13.3 g/dl (12.0-16.0); Mean Corpuscular Hgb Conc 32.4 g/dL (32.0-36.0); Mean Corpuscular Volume 92.8 fL (80.0-100.0); Mean Platelet Volume 10.3 fL (9.4-12.3); Platelet Count 176 K/uL (130-400); RDW Coefficient of Variation 13.4 % (11.5-14.5); RDW Standard Deviation 45.9 fL (36.4-46.3); Red Blood Count 4.43 M/uL (3.93-5.22); White Blood Count 6.68 K/ul (4.8-10.8)
[2022-04-12 08:07] LABS: INR 1.1 (0.9-1.1); Prothrombin Time 11.6 Seconds (9.0-12.0)
[2022-04-12] MEDS: GABAPENTIN 400 MG CAP PO SCH ×3 (08:07→20:33)
[2022-04-12] MEDS: busPIRone 5 MG TAB PO SCH ×2 (08:07→20:32)
[2022-04-12] MEDS: INSULIN ASPART PER UNIT SC SCH ×4 (08:07→20:23)
[2022-04-12] MEDS: ACETAMINOPHEN 500 MG TAB PO SCH ×3 (08:08→20:31)
[2022-04-12] MEDS: ISOSORBIDE MONO EXTENDED REL 30 MG TABCR PO SCH (08:08)
[2022-04-12] MEDS: CYANOCOBALAMIN (B-12) 500 MCG TABLET PO SCH (08:08)
[2022-04-12] MEDS: TOPIRAMATE 25 MG TAB PO SCH (08:08)
[2022-04-12] MEDS: FUROSEMIDE 40 MG TAB PO SCH (08:08)
[2022-04-12] MEDS: CITALOPRAM 20 MG TAB PO SCH (08:08)
[2022-04-12] MEDS: CEROVITE ADV FORMULA TAB PO SCH (08:08)
[2022-04-12] MEDS: LORATADINE 10 MG TAB PO SCH (08:08)
[2022-04-12 08:25] LABS: BUN Creatinine Ratio 21.6 (10-20); Creatinine Clr Calc Pharmacy 62.9 ml/min; Est GFR (African American) 86.2 ml/min; Est GFR (Non-African American) 74.4 ml/min; Magnesium 1.9 mg/dl (1.7-2.4); Phosphorus 2.9 mg/dl (2.5-4.9); Potassium 3.8 mmol/L (3.5-5.1)
--- NOTE | 2022-04-12 08:27 | Hospitalist Progress Note ---
Date of Service April 12, 2022 Assessment & Plan (1) Pre-syncope: (2) Fall: (3) Diabetes: (4) COPD (chronic obstructive pulmonary disease): (5) Chronic diastolic (congestive) heart failure: (6) Anxiety disorder: (7) Pacemaker: Plan 86 year old with fall. On xarelto. Imaging negative for SDH or SAH Presyncope: Status post fall: Recent fall 07/2020 status post small SDH and subtle small SAH with SICU admission at that time aspirin, and Plavix was discontinued and patient transition to Xarelto Discussed on the phone with Dr. Balderas with Neurology; recommend repeat CT scan and no need to hold Xaralto Ortho BP ordered PT/OT consults placed hip/pelvis and femur x-rays negative: spine x-ray: [id number] fracture is new but she is not having any pain where that is so not sure if related to this fall; consider ortho spine consult if painful; otherwise f/u OPT Repeat head CT -negative for any intracranial bleed CAD: Pacemaker: Atrial flutter: EKG 102 atrial paced rhythm with RBBB Pacemaker placed [address] Borges for bradycardia/SSS Diagnosed atrial flutter 08/2020; talked to Tom from [employer]: pacer was interrogated 4 days ago. he pulled up the report and everything was operational; no ventricular or atrial arrhythmias Orthostatic BPs ordered Cardiology consulted -no atrial flutter noted on pacer interrogation, cardiology also recommends to stop Xarelto given her frequent falls, and start aspirin instead Diabetes mellitus type 2: Last A1C 02/15/22: 7.2 Takes NPH 30U in AM 30 U in PM; also takes Trulicity SQ weekly; last dose this m orning. FSBS and ACHS and SSI COPD: Wears 2 L nasal cannula at bedtime and as needed during daytime Denies orthopnea HLD: Takes atorvastatin; continue lipid panel 01/2022: TG 93, HDL 55, LDL 79 Anxiety Disorder: Headaches: Takes Buspirone; continue Takes Topiramate; continue Disposition: PCP: Dr. Romie Hoang [facility] Prophylaxis: Teds/SCDs for now Code: DNR/DNI I personally was able to review all current laboratory work and diagnostic images obtained in the ED. Additionally, I was able to review the patients past medication reconciliation and history with direct visualization in the patients chart. This patient was seen in collaboration with Dr. Herzog. Admission and Anticipated Discharge Date Admission Date: April 11, 2022 Subjective Patient seen in follow-up of fall, patient on Xarelto for atrial flutter Had CT scan of head repeated this morning, negative for any acute bleed She also had her pacer interrogated, without any atrial flutter noted, patient also seen by cardiology Currently laying in bed, in no acute distress feeling overall well but weak Denies any fevers, chills, palpitations, chest pain, shortness of breath She also denies any abdominal pain nausea vomiting She has minimal headache from falling and hitting her head Discussed with cardiology, that they recommend stopping Xarelto due to her frequent falls, and starting aspirin instead. patient is in full understanding and agreement Review of Systems Review of Systems: All systems reviewed & are unremarkable except as noted in Subjective Physical Exam Constitutional: Constitutional:L + obese elderly F , laying in bed in NAD Neck: + thick neck Respiratory: no respiratory di stress Auscultati on: lungs clear to auscultation bila terally Cardiovascular:L regular rate and r egular rhythm, no murmur, no JVD, no edema Chest (Breasts): Chest: + pacemaker (healed without e rythema or drainag e) Gastrointestinal ( Abdomen): normal bowel sound s, soft, nontender , +obese Skin: no rashes, warm an d dry Neurologic: PERRL, EOMI, no fa ce palsy, no dysar thria, moves extre mities Results & Data Results & Data ([facility]) Vital Signs (Past 12 Hours) Vital Signs Temp Pulse Pulse Resp BP BP Pulse Ox 04/12/22 04:00 36.4 C L 60 18 154/75 H 93 04/12/22 02:26 63 04/12/22 01:47 36.3 C L 61 18 152/68 H 94 O2 Del Method 04/12/22 04:00 Room Air 04/12/22 02:26 04/12/22 01:47 Room Air Laboratory Results 04/13/22 04/12/22 04/12/22 Range/Units 07:32 20:13 16:34 WBC (4.8-10.8) K/ul RBC (3.93-5.22) M/uL Hgb (12.0-16.0) g/dl Hct (34.1-44.9) % MCV (80.0-100.0) fL MCH (25.0-34.0) pg MCHC (32.0-36.0) g/dL RDW Std Deviation (36.4-46.3) fL RDW Coeff of Chun (11.5-14.5) % Plt Count (130-400) K/uL MPV (9.4-12.3) fL PT (9.0-12.0) Seconds INR (0.9-1.1) Sodium (136-145) mmol/L Potassium (3.5-5.1) mmol/L Chloride (98-107) mmol/L Carbon Dioxide (21-32) mmol/L Anion Gap (3-11) BUN (6-23) mg/dl Creatinine (0.6-1.2) mg/dl Est Cr Clr Drug Dosing ml/min Est GFR ( Amer) ml/min Est GFR (Non-Af Amer) ml/min BUN/Creatinine Ratio (10-20) Glucose (70-99(Fasting)) mg/dl POC Glucose 122 H 134 H 125 H (70-99) mg/dl Estimat Average Glucose mg/dl Hemoglobin A1c (4.5-5.6) % Calcium (8.5-10.1) mg/dl Phosphorus (2.5-4.9) mg/dl Magnesium (1.7-2.4) mg/dl 04/12/22 04/12/22 04/12/22 Range/Units 11:27 06:22 06:22 WBC (4.8-10.8) K/ul RBC (3.93-5.22) M/uL Hgb (12.0-16.0) g/dl Hct (34.1-44.9) % MCV (80.0-100.0) fL MCH (25.0-34.0) pg MCHC (32.0-36.0) g/dL RDW Std Deviation (36.4-46.3) fL RDW Coeff of Chun (11.5-14.5) % Plt Count (130-400) K/uL MPV (9.4-12.3) fL PT (9.0-12.0) Seconds INR (0.9-1.1) Sodium 143 (136-145) mmol/L Potassium 3.8 (3.5-5.1) mmol/L Chloride 109 H (98-107) mmol/L Carbon Dioxide 30 (21-32) mmol/L Anion Gap 4 (3-11) BUN 16 (6-23) mg/dl Creatinine 0.74 (0.6-1.2) mg/dl Est Cr Clr Drug Dosing 62.9 ml/min Est GFR ( Amer) 86.2 ml/min Est GFR (Non-Af Amer) 74.4 ml/min BUN/Creatinine Ratio 21.6 H (10-20) Glucose 136 H (70-99(Fasting)) mg/dl POC Glucose 122 H (70-99) mg/dl Estimat Average Glucose 151 mg/dl Hemoglobin A1c 6.9 H (4.5-5.6) % Calcium 9.0 (8.5-10.1) mg/dl Phosphorus 2.9 (2.5-4.9) mg/dl Magnesium 1.9 (1.7-2.4) mg/dl 04/12/22 04/12/22 Range/Units 06:22 06:22 WBC 6.68 (4.8-10.8) K/ul RBC 4.43 (3.93-5.22) M/uL Hgb 13.3 (12.0-16.0) g/dl Hct 41.1 (34.1-44.9) % MCV 92.8 (80.0-100.0) fL MCH 30.0 (25.0-34.0) pg MCHC 32.4 (32.0-36.0) g/dL RDW Std Deviation 45.9 (36.4-46.3) fL RDW Coeff of Chun 13.4 (11.5-14.5) % Plt Count 176 (130-400) K/uL MPV 10.3 (9.4-12.3) fL PT 11.6 (9.0-12.0) Seconds INR 1.1 (0.9-1.1) Sodium (136-145) mmol/L Potassium (3.5-5.1) mmol/L Chloride (98-107) mmol/L Carbon Dioxide (21-32) mmol/L Anion Gap (3-11) BUN (6-23) mg/dl Creatinine (0.6-1.2) mg/dl Est Cr Clr Drug Dosing ml/min Est GFR ( Amer) ml/min Est GFR (Non-Af Amer) ml/min BUN/Creatinine Ratio (10-20) Glucose (70-99(Fasting)) mg/dl POC Glucose (70-99) mg/dl Estimat Average Glucose mg/dl Hemoglobin A1c (4.5-5.6) % Calcium (8.5-10.1) mg/dl Phosphorus (2.5-4.9) mg/dl Magnesium (1.7-2.4) mg/dl Medications Administered Current Inpatient Medications Acetaminophen (Acetaminophen 325 Mg Tab) 650 mg PO Q4H PRN PRN Reason: Pain or Fever Stop: 05/11/22 21:20 Acetaminophen (Acetaminophen 500 Mg Tab) 1,000 mg PO TID MAEGAN Stop: 05/11/22 21:20 Last Admin: 04/12/22 08:08 Dose: 1,000 mg Al Hydrox/Mg Hydrox/Simethicone (Aluminum/Magnesium Susp 30 Ml Udc) 15 ml PO Q4H PRN PRN Reason: Dyspepsia Stop: 05/11/22 21:20 Atorvastatin Calcium (Atorvastatin 40 Mg Tab) 40 mg PO HS MAEGAN Stop: 05/11/22 21:20 Last Admin: 04/11/22 23:14 Dose: 40 mg Buspirone HCl (Buspirone 5 Mg Tab) 10 mg PO BID MAEGAN Stop: 05/11/22 21:20 Last Admin: 04/12/22 08:07 Dose: 10 mg Citalopram Hydrobromide (Citalopram 20 Mg Tab) 20 mg PO QAM MAEGAN Stop: 05/12/22 08:59 Last Admin: 04/12/22 08:08 Dose: 20 mg Cyanocobalamin (Cyanocobalamin (B-12) 500 Mcg Tablet) 1,000 mcg PO QAM MAEGAN Stop: 05/12/22 08:59 Last Admin: 04/12/22 08:08 Dose: 1,000 mcg Dextrose (Dextrose 50% 50 Ml Syringe) 25 - 50 ml IV UD PRN; Protocol PRN Reason: Hypoglycemia Protocol Stop: 05/11/22 21:20 Furosemide (Furosemide 40 Mg Tab) 40 mg PO QAM MAEGAN Stop: 05/12/22 08:59 Last Admin: 04/12/22 08:08 Dose: 40 mg Gabapentin (Gabapentin 400 Mg Cap) 400 mg PO TID MAEGAN Stop: 05/11/22 21:20 Last Admin: 04/12/22 08:07 Dose: 400 mg Glucagon (Glucagon For Inj 1 Mg Vial) 1 mg SQ UD PRN; Protocol PRN Reason: Hypoglycemia Protocol Stop: 05/11/22 21:20 Glucose (Glucose 40% Gel 15 Gm Tube) 15 - 30 gm PO UD PRN; Protocol PRN Reason: Hypoglycemia Protocol Stop: 05/11/22 21:20 Glucose (Glucose 10 Tab/Tube) 4 - 8 tab PO UD PRN; Protocol PRN Reason: Hypoglycemia Treatment Stop: 05/11/22 21:20 Insulin Aspart (Insulin Aspart Per Unit) 0 units SC ACHS [facility] Stop: 05/11/22 21:20 Last Admin: 04/12/22 08:07 Dose: 4 units Insulin Glargine (Lantus Per Unit Charge) 15 units SQ NOW ONE Stop: 04/12/22 09:01 Last Admin: 04/12/22 08:19 Dose: 15 units Isosorbide Mononitrate (Isosorbide [facility] Extended Rel 30 Mg Tabcr) 30 mg PO QAM MAEGAN Stop: 05/12/22 08:59 Last Admin: 04/12/22 08:08 Dose: 30 mg Loratadine (Loratadine 10 Mg Tab) 10 mg PO DAILY MAEGAN Stop: 05/12/22 08:59 Last Admin: 04/12/22 08:08 Dose: 10 mg Magnesium Hydroxide (Magnesium Hydroxide Susp 30 Ml Udc) 30 ml PO Q12H PRN PRN Reason: Constipation Stop: 05/11/22 21:20 Melatonin (Melatonin 3 Mg Tab) 9 mg PO HS PRN PRN Reason: Insomnia Stop: 05/11/22 22:32 Miscellaneous (Carbohydrates For Hypoglycemia ) 15 - 30 gm PO UD PRN PRN Reason: Hypoglycemia Protocol Stop: 05/11/22 21:20 Miscellaneous Information (Pharmacy Glycemic Mgmt Consult) 1 each N/A UD PRN PRN Reason: Consult Stop: 05/11/22 21:20 Multivitamins/Minerals (Cerovite Adv Formula Tab) 1 tab PO DAILY MAEGAN Stop: 05/12/22 08:59 Last Admin: 04/12/22 08:08 Dose: 1 tab Ondansetron HCl (Ondansetron Inj 2 Mg/Ml 2 Ml Vial) 4 mg IV Q6H PRN PRN Reason: Nausea Stop: 05/11/22 21:20 Polyethylene Glycol (Polyethylene (Miralax) 17 Gm Pack) 17 gm PO DAILY PRN PRN Reason: Constipation Stop: 05/11/22 21:20 Rivaroxaban (Rivaroxaban 20 Mg Tab) 20 mg PO QAM [facility] Stop: 05/12/22 08:59 Topiramate (Topiramate 25 Mg Tab) 25 mg PO QAM [facility] Stop: 05/12/22 08:59 Last Admin: 04/12/22 08:08 Dose: 25 mg (1) Diabetes Diabetes mellitus type: type 2 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
--- NOTE | 2022-04-12 08:45 | Cardiology Consultation ---
Date of Consultation April 12, 2022 Assessment & Plan (1) Acute head trauma: (2) Fall: (3) Atrial flutter: (4) Pacemaker: (5) CAD (coronary artery disease): Plan Patient admitted post fall. Initial head scans were unremarkable. Repeat head CT this morning is pending at time of consult. Patient has a long history of gait instability. This is second fall in 1.5 years with first one having sustained head bleed. Risks/benefits of anticoagulation discussed. Musa also previously discussed while patient was seeing [facility]. At this time, her risks of [facility] anticoagulation with recurrent falls outweighs the benefit of [employer] anticoagulation. She has not had recurrent atrial flutter on recent device interrogations (completed last week). Would recommend stopping Xarelto upon discharge and resume ASA 81 mg daily given history of CAD and stroke prophylaxis. will await repeat head scan results pending Continue all other cardiac medications including atorvastatin, isosorbide, furosemide. As an outpatient patient is to be taking metoprolol succinate 25 mg daily. Does not appear to be ordered on admission. Will resume. If she is not taking at home, she needs to resume therapy on discharge to treat PAF. Case discussed with Dr. Bettencourt. Supervising Physician Co-Signing Physician Notes I have seen and examined the patient. I reviewed the medical record and dis cussed the case with Rick. I agree that the risk versus benefit of anticoagulation in this patient with gait instability and previous falls. As mentioned about a year ago she fell and sustained a head bleed. Although it states above that this was her second fall, when I discussed, a times she has fallen since event a year and a half ago she seemed to indicate that she has had multiple falls but was doing well recently. In any case, I think it would be reasonable to stop the Xarelto and place the patient on aspirin only. History of Present Illness Reason for Consultation: fall; history of atrial flutter on chronic anticoagulation and s/p pacemaker Requesting Physician: KATHARINE Duran Attending Physician: Dr. Bettencourt History of Present Illness Patient is a 86 year old female known to [facility], Dr. Farrell/KATHARINE Canales, for history of: 1. Symptomatic atrial flutter- on Xarelto for anticoagulation therapy a. S/p GRANT guided DCCV 07/2020 b. S/p successful DCCV 12/24/[address] Farrell 2. SSS s/p dual-chamber ppm implanted 2018 3. Mild to moderate nonobstructive CAD 4. RBBB 5. HTN 6. DM type 2 7. History of subdural hematoma and small subarachnoid hemorrhage after fall in July 2020; followed by neurology and Xarelto initiated after bleeding resolved Patient was admitted to [facility] yesterday after sustaining a fall backwards in her kitchen. Patient is a poor historian. she recalls walking from her bedroom to kitchen and her "shoe turned and got stuck" and she fell backwards hitting her head. She does not believe fall was associated with dizziness. No known loss of consciousness. She was brought to ER by family due to large hematoma on back of her head and chronic anticoagulation. Initial head scans were negative. EKG demonstrated atrial paced. No arrhythmias on recent device interrogation in office last week. Neuro was consulted last evening and Xarelto was continued since no evidence of head bleed. At time of consult, patient returning from repeat head CT. She denies headache or vision changes. She reports chronic dyspnea, but per outpatient office visit notes, this is unchanged. No chest pain reported. No dizziness or lightheadedness. No fever, cough, chills. Allergies Allergy/AdvReac Type Severity Reaction Status Date / Time No Known Allergies Allergy Unverified 04/11/22 18:50 Home Medications Medication Instructions Recorded Confirmed Type atorvastatin 40 mg tablet 40 mg PO HS 08/26/18 04/11/22 History buspirone 10 mg tablet 10 mg PO BID 08/26/18 04/11/22 History citalopram 20 mg tablet 20 mg PO QAM 08/26/18 04/11/22 History cyanocobalamin (vitamin B-12) 1,000 mcg PO QAM 08/26/18 04/11/22 History 1,000 mcg tablet (Vitamin B-12) furosemide 40 mg tablet 40 mg PO QAM 08/26/18 04/11/22 History topiramate 25 mg tablet 25 mg PO QAM 08/26/18 04/11/22 History insulin NPH-regular 70-30 U-100 30 unit (0.3 mL) subcut QAM #0 mL 09/01/18 04/11/22 Rx insulin 100 unit/mL subcutaneous pen (Novolin 70-30 FlexPen U-100 Insulin) nitroglycerin 0.4 mg sublingual 0.4 mg sublingual Q5M PRN Chest 12/20/18 04/11/22 History tablet Pain #25 tabs rivaroxaban 20 mg tablet (Xarelto) 20 mg PO QAM 12/23/21 04/11/22 History acetaminophen 650 mg 1,300 mg PO TID 04/11/22 04/11/22 History tablet,extended release dulaglutide 0.75 mg/0.5 mL 0.75 mg subcut WK 04/11/22 04/11/22 History subcutaneous pen injector (Trulicity) gabapentin 100 mg capsule 400 mg PO TID 04/11/22 04/11/22 History insulin NPH-regular 70-30 U-100 18 unit subcut QPM 04/11/22 04/11/22 History insulin 100 unit/mL subcutaneous pen (Novolin 70-30 FlexPen U-100 Insulin) isosorbide mononitrate 30 mg 30 mg PO QAM 04/11/22 04/11/22 History tablet,extended release 24 hr loratadine 10 mg tablet 10 mg PO DAILY 04/11/22 04/11/22 History melatonin 10 mg tablet 10 mg PO HS PRN Insomnia 04/11/22 04/11/22 History vit A 300 mcg-C 200 mg-E 27 1 tab PO DAILY 04/11/22 04/11/22 History mg-lutein 2 mg and minerals tablet (Ocuvite with Lutein) Patient History Medical History Anxiety Atrial flutter CAD (coronary artery disease) Mild to moderate nonobstructive CAD per cardio records Cardiac cath 2016- showed LM: normal, LAD: 30-40%, LCx: mild CAD, RCA: 30-40% Cardiac pacemaker Placed for SSS Last checked 12/22/21 (report not available)- follows w/ [facility] Chronic obstructive pulmonary disease CKD (chronic kidney disease), stage III Congestive heart failure Diabetes Type II Fall Hypertension On anticoagulant therapy xarelto On home oxygen therapy 3 lpm via NC- mostly at night - PRN during the day Poor historian PAT interview done by son- unsure of many things- pt has mild cognitive iss ues per son Pre-syncope Surgical History H/O section S/P cholecystectomy Status post cardiac pacemaker procedure Family History Father Hypertension Social History Smoking Status: Former smoker Second Hand Exposure: Yes; Hx Alcohol Use: No Hx Substance Use: No Preferred Language: Pashto Communication Ability: Effective Transcription Coordinator Required: No Beliefs That Will Affect Care: None marital status: Current Living Situation: Spouse and Family current occupational status: retired Feels Safe at Home: Yes Assistive Devices: Oxygen - at Night, Oxygen - Continuous and Walker Review of Systems Review of Systems: All systems reviewed & are unremarkable except as noted in HPI & below Physical Exam Constitutional: WD/WN, vitals as above + obese; no acute distress Neck: + thick neck Respiratory: normal respiratory effort; no respiratory distress Auscultation: lungs clear to auscultation bilaterally Cardiovascular: Rate/Rhythm: regular rate and regular rhythm Heart Sounds: no murmur Vessels: no JVD Extremities: no edema Chest (Breasts): Chest: + pacemaker (healed without erythema or drainage) Gastrointestinal (Abdomen): normal bowel sounds, soft, nontender, no he patosplenomegaly Skin: no rashes, warm and dry Neurologic: PERRL, EOMI, accommodation nl, no face palsy, no dysarthria Results & Data ([facility]) Vital Signs (Past 12 Hours) Vital Signs Temp Pulse Pulse Resp BP BP Pulse Ox 04/12/22 04:00 36.4 C L 60 18 154/75 H 93 04/12/22 02:26 63 04/12/22 01:47 36.3 C L 61 18 152/68 H 94 O2 Del Method 04/12/22 04:00 Room Air 04/12/22 02:26 04/12/22 01:47 Room Air Laboratory Results Cardiac Enzymes 04/11/22 Range/Units 13:40 AST 12 L (13-39) U/L Coagulation 04/11/22 04/12/22 Range/Units 13:40 06:22 PT 12.4 H 11.6 (9.0-12.0) Seconds APTT 31.9 H (21.0-31.0) Seconds CBC 04/11/22 04/12/22 Range/Units 13:40 06:22 WBC 7.35 6.68 (4.8-10.8) K/ul RBC 4.44 4.43 (3.93-5.22) M/uL Hgb 13.6 13.3 (12.0-16.0) g/dl Hct 41.9 41.1 (34.1-44.9) % Plt Count 171 176 (130-400) K/uL Neut # (Auto) 4.60 (1.4-6.5) K/uL Lymph # (Auto) 2.02 (1.2-3.4) K/uL [place] # (Auto) 0.52 (0.24-0.82) K/uL Eos # (Auto) 0.17 (0-0.50) K/uL Baso # (Auto) 0.02 (0-0.2) K/uL Comprehensive Metabolic Panel 04/11/22 04/12/22 Range/Units 13:40 06:22 Sodium 144 143 (136-145) mmol/L Potassium 3.8 3.8 (3.5-5.1) mmol/L Chloride 109 H 109 H (98-107) mmol/L Carbon Dioxide 32 30 (21-32) mmol/L BUN 16 16 (6-23) mg/dl Creatinine 0.71 0.74 (0.6-1.2) mg/dl Glucose 61 L 136 H (70-99(Fasting)) mg/dl Calcium 9.3 9.0 (8.5-10.1) mg/dl AST 12 L (13-39) U/L ALT 5 L (7-52) U/L Alkaline Phosphatase 104 (34-104) U/L Total Protein 6.5 (6.0-8.3) gm/dl Albumin 3.5 (3.4-5.0) gm/dl Intake and Output 04/11/22 04/12/22 04/12/22 22:59 06:59 14:59 Intake Total 100 / 200 100 / 200 Balance 100 / 200 100 / 200 Intake: IV 100 / 100 Acetaminophen 1,000 mg In 100 100 / 100 ml @ 400 mls/hr IV NOW STA Rx#: [id number] Oral 100 / 100 Other: Weight 94.1 kg Weight Measurement Method Standing Scale Diagnostic Findings Telemetry reviewed: Atrial paced in the 60's. No arrhythmias. no recurrent atrial flutter Device interrogation completed last night - No atrial arrhythmias, appropriate function. EKG reviewed from admission: Atrial paced prolonged AV conduction Right bundle branch block Abnormal ECG When compared with ECG of 24-DEC-2021 07:30, T wave inversion less evident in Inferior leads Device interrogation reviewed from 04/07/22 (prior to event leading to admission): Appropriate function and battery longevity of 9.3 years. 98.9% atrial paced; 0.2% ventricular paced 0 mode switches Chest X-Ray 04/11/22 14:38 XR chest 1V portable CLINICAL HISTORY: fall TECHNIQUE: Single frontal radiograph of the chest was obtained. Comparison: Comparison is made to chest radiograph 08/30/2018 FINDINGS: Dual lead pacemaker is seen. Calcified aortic knob is seen. Lungs are underinflated but clear. No evidence of pleural effusion or pneumothorax. Bilateral shoulder arthroplasties are seen. IMPRESSION: No acute chest disease. ACT 112: Negative or not required by law. Electronically signed by: Regulo Jones M.D. 04/11/2022 4:[address] 04/11/22 14:38 CT head/brain wo con CLINICAL HISTORY: fall Technique: Contiguous axial CT images of the head were acquired from the base of the skull to the vertex without intravenous contrast administration. Images were viewed in brain, subdural and bone windows. Automated dose lowering techniques and/or adjustment according to patient size were utilized for this exam. Comparison: Comparison is made to CT head 04/15/2016 Findings: The ventricles, basal cisterns, and cerebral sulci are normal. There is no acute intracranial hemorrhage or evidence of acute territorial infarction. Neither mass effect, shift of the midline structures, nor abnormal extra-axial fluid collections are shown. Imaged portions of the paranasal sinuses and mastoid air cells are clear. The orbits appear normal. There are no acute fractures of the calvaria or scalp swelling. Impression: No acute intracranial hemorrhage, no evidence of acute territorial infarction or other acute intracranial disease process. Outside data/studies: Transesophageal echocardiogram report October 06, 2020: Low normal left ventricular systolic function. Ejection fraction 50-55% Right heart catheter. No significant valvular heart disease. Cardiac catheterization [facility] 07/26/2016: LM: Normal LAD: 30-40% mid Lcx: mild CAD RCA: 30-40% Medications Administered Current Inpatient Medications Acetaminophen (Acetaminophen 325 Mg Tab) 650 mg PO Q4H PRN PRN Reason: Pain or Fever Stop: 05/11/22 21:20 Acetaminophen (Acetaminophen 500 Mg Tab) 1,000 mg PO TID MAEGAN Stop: 05/11/22 21:20 Last Admin: 04/12/22 08:08 Dose: 1,000 mg Al Hydrox/Mg Hydrox/Simethicone (Aluminum/Magnesium Susp 30 Ml Udc) 15 ml PO Q4H PRN PRN Reason: Dyspepsia Stop: 05/11/22 21:20 Atorvastatin Calcium (Atorvastatin 40 Mg Tab) 40 mg PO HS MAEGAN Stop: 05/11/22 21:20 Last Admin: 04/11/22 23:14 Dose: 40 mg Buspirone HCl (Buspirone 5 Mg Tab) 10 mg PO BID MAEGAN Stop: 05/11/22 21:20 Last Admin: 04/12/22 08:07 Dose: 10 mg Citalopram Hydrobromide (Citalopram 20 Mg Tab) 20 mg PO QAM MAEGAN Stop: 05/12/22 08:59 Last Admin: 04/12/22 08:08 Dose: 20 mg Cyanocobalamin (Cyanocobalamin (B-12) 500 Mcg Tablet) 1,000 mcg PO QAM MAEGAN Stop: 05/12/22 08:59 Last Admin: 04/12/22 08:08 Dose: 1,000 mcg Dextrose (Dextrose 50% 50 Ml Syringe) 25 - 50 ml IV UD PRN; Protocol PRN Reason: Hypoglycemia Protocol Stop: 05/11/22 21:20 Furosemide (Furosemide 40 Mg Tab) 40 mg PO QAM MAEGAN Stop: 05/12/22 08:59 Last Admin: 04/12/22 08:08 Dose: 40 mg Gabapentin (Gabapentin 400 Mg Cap) 400 mg PO TID MAEGAN Stop: 05/11/22 21:20 Last Admin: 04/12/22 08:07 Dose: 400 mg Glucagon (Glucagon For Inj 1 Mg Vial) 1 mg SQ UD PRN; Protocol PRN Reason: Hypoglycemia Protocol Stop: 05/11/22 21:20 Glucose (Glucose 40% Gel 15 Gm Tube) 15 - 30 gm PO UD PRN; Protocol PRN Reason: Hypoglycemia Protocol Stop: 05/11/22 21:20 Glucose (Glucose 10 Tab/Tube) 4 - 8 tab PO UD PRN; Protocol PRN Reason: Hypoglycemia Treatment Stop: 05/11/22 21:20 Insulin Aspart (Insulin Aspart Per Unit) 0 units SC ACHS [facility] Stop: 05/11/22 21:20 Last Admin: 04/12/22 08:07 Dose: 4 units Insulin Glargine (Lantus Per Unit Charge) 15 units SQ NOW ONE Stop: 04/12/22 09:01 Last Admin: 04/12/22 08:19 Dose: 15 units Isosorbide Mononitrate (Isosorbide [place] Extended Rel 30 Mg Tabcr) 30 mg PO QAM MAEGAN Stop: 05/12/22 08:59 Last Admin: 04/12/22 08:08 Dose: 30 mg Loratadine (Loratadine 10 Mg Tab) 10 mg PO DAILY MAEGAN Stop: 05/12/22 08:59 Last Admin: 04/12/22 08:08 Dose: 10 mg Magnesium Hydroxide (Magnesium Hydroxide Susp 30 Ml Udc) 30 ml PO Q12H PRN PRN Reason: Constipation Stop: 05/11/22 21:20 Melatonin (Melatonin 3 Mg Tab) 9 mg PO HS PRN PRN Reason: Insomnia Stop: 05/11/22 22:32 Miscellaneous (Carbohydrates For Hypoglycemia ) 15 - 30 gm PO UD PRN PRN Reason: Hypoglycemia Protocol Stop: 05/11/22 21:20 Miscellaneous Information (Pharmacy Glycemic Mgmt Consult) 1 each N/A UD PRN PRN Reason: Consult Stop: 05/11/22 21:20 Multivitamins/Minerals (Cerovite Adv Formula Tab) 1 tab PO DAILY MAEGAN Stop: 05/12/22 08:59 Last Admin: 04/12/22 08:08 Dose: 1 tab Ondansetron HCl (Ondansetron Inj 2 Mg/Ml 2 Ml Vial) 4 mg IV Q6H PRN PRN Reason: Nausea Stop: 05/11/22 21:20 Polyethylene Glycol (Polyethylene (Miralax) 17 Gm Pack) 17 gm PO DAILY PRN PRN Reason: Constipation Stop: 05/11/22 21:20 Rivaroxaban (Rivaroxaban 20 Mg Tab) 20 mg PO QAM [facility] Stop: 05/12/22 08:59 Topiramate (Topiramate 25 Mg Tab) 25 mg PO QAM MAEGAN Stop: 05/12/22 08:59 Last Admin: 04/12/22 08:08 Dose: 25 mg (1) Acute head trauma Encounter type: initial encounter Qualified Code(s): S09.90XA - Unspecified injury of head, initial encounter (2) Fall Encounter type: initial encounter Qualified Code(s): W19.XXXA - Unspecified fall, initial encounter
[2022-04-12] MEDS ORDERED: LANTUS PER UNIT CHARGE SQ ONE (09:00)
[2022-04-12] MEDS ORDERED: RIVAROXABAN 20 MG TAB PO SCH (09:00)
--- NOTE | 2022-04-12 09:19 | CT Scan Report ---
HEAD CT NONCONTRAST CT DOSE: 614.27 mGy.cm HISTORY: s/p fall TECHNIQUE: Multiaxial CT images of the head were performed without the use of intravenous contrast. A utomated exposure control was utilized for this study. A dose lowering technique was utilized adheri ng to the principles of ALARA. Comparison: Head CT 04/11/2022. Findings: The paranasal sinuses and mastoid air cells are clear. The calvarium and skull base are int act. There is no mass, hematoma, midline shift, acute infarct. White matter hypodensity is nonspecifi c but suggestive of microvascular ischemic change. The ventricles and sulci demonstrate mild age-rela haydee involutional changes. Slight offset at the lateral wall the left orbit is noted. This is likely c hronic as there is no periorbital soft tissue swelling to suggest an acute fracture. Impression: 1. No acute infarct or intracranial hemorrhage. 2. Atrophy and microvascular ischemic changes are noted. 3. Slight offset at the lateral wall the left orbit is noted. This is likely chronic as there is no p eriorbital soft tissue swelling to suggest an acute fracture. ACT 112: Negative or not required by law. Electronically signed by: Jason Yeung M.D. 04/12/2022 9:17 AM
[2022-04-12] MEDS: METOPROLOL SUCC 25MG EXT REL TAB PO SCH (12:00)
[2022-04-12 12:19] LABS: Estimated Average Glucose 151 mg/dl; Hemoglobin A1C 6.9 % (4.5-5.6)
--- NOTE | 2022-04-12 14:14 | Pharmacy Report ---
Pharmacy Glycemic Short Note 2 - Date of Service April 12, 2022 - Glycemic Short BSG Results (Last 24 hours): 04/11/22 04/11/22 04/11/22 13:40 14:43 15:56 Glucose 61 L POC Glucose 61 L* 108 H 04/11/22 04/11/22 04/11/22 21:34 21:38 21:58 Glucose POC Glucose 55 L* 59 L* 65 L* 04/11/22 04/12/22 04/12/22 23:20 05:49 06:22 Glucose 136 H POC Glucose 100 H 144 H 04/12/22 04/12/22 07:44 11:27 Glucose POC Glucose 140 H 122 H OUTPATIENT ANTIDIABETIC REGIMEN: * Trulicity 0.75 mg SQ weekly * Novolin 70/30 - 30 units in the morning + 18 units in the evening * HbA1C = 6.9% (04/12/22) ASSESSMENT: * Ms Kramer is an 86 y/o F with a PMH of T2DM on insulin who presents with a fall. * Patient was hypoglycemic yesterday evening- most likely because she did not eat dinner. * Patient is on a mixed insulin at home, will start Lantus 15 units which is slightly less than 0.2 units/kg. Patient's HbA1C indicates extremely strict control thus 48 units of insulin total per day will most likely be too aggressive for patient. * Novolog- weight-based stress of 2 for now. PLAN FOR INPATIENT GLYCEMIC CONTROL: * Hold outpatient oral diabetes medications * Basal insulin * Lantus 15 units SQ daily * Bolus insulin * NovoLog per scale ACHS or Q6hrs while NPO * Goal Range: Low 110 mg/dL - High 140 mg/dL * Correction Factor: 25 mg/dL/unit * Nutritional / Prandial insulin per carb ratio of 1 unit per 8 grams CHO consumed
--- NOTE | 2022-04-12 14:55 | Electrocardiogram Report ---
Test Reason : Blood Pressure : / mmHG Vent. Rate : 067 BPM Atrial Rate : 067 BPM P-R Int : 250 ms QRS Dur : 162 ms QT Int : 458 ms P-R-T Axes : 002 071 040 degrees QTc Int : 483 ms Atrial-paced rhythm with prolonged AV conduction Right bundle branch block Abnormal ECG When compared with ECG of 24-DEC-2021 07:30, T wave inversion less evident in Inferior leads Confirmed by Serafin Borges ([id number]) on 04/12/2022 2:54:39 PM Referred By: Confirmed By:Serafin Borges
[2022-04-12] MEDS: ATORVASTATIN 40 MG TAB PO SCH (20:32)
--- NOTE | 2022-04-13 08:00 | Hospitalist Progress Note ---
Date of Service April 13, 2022 Assessment & Plan (1) Pre-syncope: (2) Fall: (3) Diabetes: (4) COPD (chronic obstructive pulmonary disease): (5) Chronic diastolic (congestive) heart failure: (6) Anxiety disorder: (7) Pacemaker: Plan 86 year old with fall. On xarelto. Imaging negative for SDH or SAH Presyncope: Status post fall: Recent fall 07/2020 status post small SDH and subtle small SAH with SICU admission at that time aspirin, and Plavix was discontinued and patient transition to Xarelto Discussed on the phone with Dr. Balderas with Neurology; recommend repeat CT scan and no need to hold Xaralto Ortho BP ordered PT/OT consults placed hip/pelvis and femur x-rays negative: spine x-ray: [id number] fracture is new but she is not having any pain where that is so not sure if related to this fall; consider ortho spine consult if painful; otherwise f/u OPT Repeat head CT - negative for any intracranial bleed CAD: Pacemaker: Atrial flutter: EKG 102 atrial paced rhythm with RBBB Pacemaker placed [address] Borges for bradycardia/SSS Diagnosed atrial flutter 08/2020; talked to Tom from [employer]: pacer was interrogated 4 days ago. he pulled up the report and everything was operational; no ventricular or atrial arrhythmias Orthostatic BPs ordered Cardiology consulted - no atrial flutter noted on pacer interrogation, cardiology also recommends to stop Xarelto given her frequent falls, and start aspirin instead Diabetes mellitus type 2: Last A1C 02/15/22: 7.2 Takes NPH 30U in AM 30 U in PM; also takes Trulicity SQ weekly; last dose this morning. FSBS and ACHS and SSI COPD: Wears 2 L nasal cannula at bedtime and as needed during daytime Denies orthopnea HLD: Takes atorvastatin; continue lipid panel 01/2022: TG 93, HDL 55, LDL 79 Anxiety Disorder: Headaches: Takes Buspirone; continue Takes Topiramate; continue Disposition: PCP: Dr. Romie Hoang [facility]TE Prophylaxis: Teds/SCDs for now Code: DNR/DNI I personally was able to review all current laboratory work and diagnostic images obtained in the ED. Additionally, I was able to review the patients past medication reconciliation and history with direct visualization in the patients chart. This patient was seen in collaboration with Dr. Herzog. Admission and Anticipated Discharge Date Admission Date: April 11, 2022 Subjective Patient seen in follow-up of fall, patient on Xarelto for atrial flutter Had CT scan of head repeated yesterday morning, negative for any acute bleed She also had her pacer interrogated, without any atrial flutter noted, patient also seen by cardiology Currently laying in bed, in no acute distress feeling overall well but weak Denies any fevers, chills, palpitations, chest pain, shortness of breath She also denies any abdominal pain nausea vomiting She has minimal headache from falling and hitting her head Discussed with cardiology, that they recommend stopping Xarelto due to her frequent falls, and starting aspirin instead. patient is in full understanding and agreement Review of Systems Review of Systems: All systems reviewed & are unremarkable except as noted in Subjective Physical Exam Physical Exam: Constitutional:+ obese elderly F, laying in bed in NAD Neck: + thick neck Respiratory: no respiratory distress Auscultation: lungs clear to auscultation bilaterally Cardiovascular:regular rate and regular rhythm, no murmur, no JVD, no edema Chest (Breasts):Chest: + pacemaker (healed without erythema or drainage) Gastrointestinal ( Abdomen): normal bowel sounds, soft, nontender, +obese Skin: no rashes, warm and dry Neurologic: PERRL, EOMI, no face palsy, no dysarthria, moves extremities Results & Data Results & [facility] ([facility] Vital Signs (Past 12 Hours) Vital Signs Temp Pulse Pulse Resp BP Pulse Ox O2 Del Method 04/13/22 07:34 36.2 C L 62 16 144/71 H 98 Nasal Cannula 04/13/22 05:00 36.5 C 60 18 127/66 98 04/12/22 23:00 60 04/12/22 21:21 Nasal Cannula 04/12/22 23:00 36.7 C 60 20 124/72 97 Nasal Cannula O2 Flow Rate 04/13/22 07:34 2 04/13/22 05:00 2 04/12/22 23:00 04/12/22 21:21 2 04/12/22 23:00 2 Laboratory Results 04/13/22 04/13/22 04/13/22 Range/Units 07:46 07:46 07:32 WBC 6.81 (4.8-10.8) K/ul RBC 4.52 (3.93-5.22) M/uL Hgb 13.8 (12.0-16.0) g/dl Hct 43.4 (34.1-44.9) % MCV 96.0 (80.0-100.0) fL MCH 30.5 (25.0-34.0) pg MCHC 31.8 L (32.0-36.0) g/dL RDW Std Deviation 48.0 H (36.4-46.3) fL RDW Coeff of Chun 13.5 (11.5-14.5) % Plt Count 168 (130-400) K/uL MPV 9.7 (9.4-12.3) fL Sodium 142 (136-145) mmol/L Potassium 4.4 (3.5-5.1) mmol/L Chloride 107 (98-107) mmol/L Carbon Dioxide 32 (21-32) mmol/L Anion Gap 3 (3-11) BUN 24 H (6-23) mg/dl Creatinine 0.92 (0.6-1.2) mg/dl Est Cr Clr Drug Dosing 50.7 ml/min Est GFR ( Amer) 66.3 ml/min Est GFR (Non-Af Amer) 57.2 ml/min BUN/Creatinine Ratio 26.1 H (10-20) Glucose 127 H (70-99(Fasting)) mg/dl POC Glucose 122 H (70-99) mg/dl Estimat Average Glucose mg/dl Hemoglobin A1c (4.5-5.6) % Calcium 9.0 (8.5-10.1) mg/dl Phosphorus 3.1 (2.5-4.9) mg/dl Magnesium 2.1 (1.7-2.4) mg/dl 04/12/22 04/12/22 04/12/22 Range/Units 20:13 16:34 11:27 WBC (4.8-10.8) K/ul RBC (3.93-5.22) M/uL Hgb (12.0-16.0) g/dl Hct (34.1-44.9) % MCV (80.0-100.0) fL MCH (25.0-34.0) pg MCHC (32.0-36.0) g/dL RDW Std Deviation (36.4-46.3) fL RDW Coeff of Chun (11.5-14.5) % Plt Count (130-400) K/uL MPV (9.4-12.3) fL Sodium (136-145) mmol/L Potassium (3.5-5.1) mmol/L Chloride (98-107) mmol/L Carbon Dioxide (21-32) mmol/L Anion Gap (3-11) BUN (6-23) mg/dl Creatinine (0.6-1.2) mg/dl Est Cr Clr Drug Dosing ml/min Est GFR ( Amer) ml/min Est GFR (Non-Af Amer) ml/min BUN/Creatinine Ratio (10-20) Glucose (70-99(Fasting)) mg/dl POC Glucose 134 H 125 H 122 H (70-99) mg/dl Estimat Average Glucose mg/dl Hemoglobin A1c (4.5-5.6) % Calcium (8.5-10.1) mg/dl Phosphorus (2.5-4.9) mg/dl Magnesium (1.7-2.4) mg/dl 04/12/22 04/12/22 Range/Units 06:22 06:22 WBC (4.8-10.8) K/ul RBC (3.93-5.22) M/uL Hgb (12.0-16.0) g/dl Hct (34.1-44.9) % MCV (80.0-100.0) fL MCH (25.0-34.0) pg MCHC (32.0-36.0) g/dL RDW Std Deviation (36.4-46.3) fL RDW Coeff of Chun (11.5-14.5) % Plt Count (130-400) K/uL MPV (9.4-12.3) fL Sodium 143 (136-145) mmol/L Potassium 3.8 (3.5-5.1) mmol/L Chloride 109 H (98-107) mmol/L Carbon Dioxide 30 (21-32) mmol/L Anion Gap 4 (3-11) BUN 16 (6-23) mg/dl Creatinine 0.74 (0.6-1.2) mg/dl Est Cr Clr Drug Dosing 62.9 ml/min Est GFR ( Amer) 86.2 ml/min Est GFR (Non-Af Amer) 74.4 ml/min BUN/Creatinine Ratio 21.6 H (10-20) Glucose 136 H (70-99(Fasting)) mg/dl POC Glucose (70-99) mg/dl Estimat Average Glucose 151 mg/dl Hemoglobin A1c 6.9 H (4.5-5.6) % Calcium 9.0 (8.5-10.1) mg/dl Phosphorus 2.9 (2.5-4.9) mg/dl Magnesium 1.9 (1.7-2.4) mg/dl Medications Administered Current Inpatient Medications Acetaminophen (Acetaminophen 325 Mg Tab) 650 mg PO Q4H PRN PRN Reason: Pain or Fever Stop: 05/11/22 21:20 Acetaminophen (Acetaminophen 500 Mg Tab) 1,000 mg PO TID [facility] Stop: 05/11/22 21:20 Last Admin: 04/12/22 20:31 Dose: 1,000 mg Al Hydrox/Mg Hydrox/Simethicone (Aluminum/Magnesium Susp 30 Ml Udc) 15 ml PO Q4H PRN PRN Reason: Dyspepsia Stop: 05/11/22 21:20 Aspirin ([facility]in 81 Mg [facility]ab) [facility] [place]: 05/13/22 08:59 Atorvastatin Calcium (Atorvastatin 40 Mg Tab) 40 mg PO HS [facility] Stop: 05/11/22 21:20 Last Admin: 04/12/22 20:32 Dose: 40 mg Buspirone HCl (Buspirone 5 Mg Tab) 10 mg PO BID [facility] Stop: 05/11/22 21:20 Last Admin: 04/12/22 20:32 Dose: 10 mg Citalopram Hydrobromide (Citalopram 20 Mg Tab) [facility] [place]: 05/12/22 08:59 Last Admin: 04/12/22 08:08 Dose: 20 mg Cyanocobalamin (Cyanocobalamin (B-12) 500 Mcg Tablet) 1,000 mcg PO QAM [facility] Stop: 05/12/22 08:59 Last Admin: 04/12/22 08:08 Dose: 1,000 mcg Dextrose (Dextrose 50% 50 Ml Syringe) 25 - 50 ml IV UD PRN; Protocol PRN Reason: Hypoglycemia Protocol Stop: 05/11/22 21:20 Furosemide (Furosemide 40 Mg Tab) 40 mg PO QAM [facility] Stop: 05/12/22 08:59 Last Admin: 04/12/22 08:08 Dose: 40 mg Gabapentin (Gabapentin 400 Mg Cap) 400 mg PO TID [facility] Stop: 05/11/22 21:20 Last Admin: 04/12/22 20:33 Dose: 400 mg Glucagon (Glucagon For Inj 1 Mg Vial) 1 mg SQ UD PRN; Protocol PRN Reason: Hypoglycemia Protocol Stop: 05/11/22 21:20 Glucose (Glucose 40% Gel 15 Gm Tube) 15 - 30 gm PO UD PRN; Protocol PRN Reason: Hypoglycemia Protocol Stop: 05/11/22 21:20 Glucose (Glucose 10 Tab/Tube) 4 - 8 tab PO UD PRN; Protocol PRN Reason: Hypoglycemia Treatment Stop: 05/11/22 21:20 Insulin Aspart (Insulin Aspart Per Unit) 0 units SC ACHS [facility] Stop: 05/11/22 21:20 Last Admin: 04/12/22 20:23 Dose: Not Given Isosorbide Mononitrate (Isosorbide [place] Extended Rel 30 Mg Tabcr) 30 mg PO QAM [facility] Stop: 05/12/22 08:59 Last Admin: 04/12/22 08:08 Dose: 30 mg Loratadine (Loratadine 10 Mg Tab) 10 mg PO DAILY [facility] Stop: 05/12/22 08:59 Last Admin: 04/12/22 08:08 Dose: 10 mg Magnesium Hydroxide (Magnesium Hydroxide Susp 30 Ml Udc) 30 ml PO Q12H PRN PRN Reason: Constipation Stop: 05/11/22 21:20 Melatonin (Melatonin 3 Mg Tab) 9 mg PO HS PRN PRN Reason: Insomnia Stop: 05/11/22 22:32 Metoprolol Succinate (Metoprolol Succ 25mg Ext Rel Tab) 25 mg PO QAM [facility] Stop: 05/12/22 10:44 Last Admin: 04/12/22 12:00 Dose: 25 mg Miscellaneous (Carbohydrates For Hypoglycemia ) 15 - 30 gm PO UD PRN PRN Reason: Hypoglycemia Protocol Stop: 05/11/22 21:20 Miscellaneous Information (Pharmacy Glycemic Mgmt Consult) 1 each N/A UD PRN PRN Reason: Consult Stop: 05/11/22 21:20 Multivitamins/Minerals (Cerovite Adv Formula Tab) 1 tab PO DAILY [facility] Stop: 05/12/22 08:59 Last Admin: 04/12/22 08:08 Dose: 1 tab Ondansetron HCl (Ondansetron Inj 2 Mg/Ml 2 Ml Vial) 4 mg IV Q6H PRN PRN Reason: Nausea Stop: 05/11/22 21:20 Polyethylene Glycol (Polyethylene (Miralax) 17 Gm Pack) 17 gm PO DAILY PRN PRN Reason: Constipation Stop: 05/11/22 21:20 Topiramate (Topiramate 25 Mg Tab) 25 mg PO QAM [facility] Stop: 05/12/22 08:59 Last Admin: 04/12/22 08:08 Dose: 25 mg (1) Diabetes Diabetes mellitus complication status: without complication 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
[2022-04-13 08:02] LABS: Hematocrit (blood only) 43.4 % (34.1-44.9); Hemoglobin 13.8 g/dl (12.0-16.0); Mean Corpuscular Hemoglobin 30.5 pg (25.0-34.0); Mean Corpuscular Hgb Conc 31.8 g/dL (32.0-36.0); Mean Platelet Volume 9.7 fL (9.4-12.3); Platelet Count 168 K/uL (130-400); RDW Coefficient of Variation 13.5 % (11.5-14.5); Red Blood Count 4.52 M/uL (3.93-5.22); White Blood Count 6.81 K/ul (4.8-10.8)
[2022-04-13] MEDS: busPIRone 5 MG TAB PO SCH (08:23)
[2022-04-13] MEDS: ACETAMINOPHEN 500 MG TAB PO SCH ×2 (08:23→13:51)
[2022-04-13] MEDS: LORATADINE 10 MG TAB PO SCH (08:23)
[2022-04-13] MEDS: GABAPENTIN 400 MG CAP PO SCH ×2 (08:23→13:52)
[2022-04-13 08:24] LABS: BUN Creatinine Ratio 26.1 (10-20); Creatinine Clr Calc Pharmacy 50.7 ml/min; Est GFR (African American) 66.3 ml/min; Est GFR (Non-African American) 57.2 ml/min; Magnesium 2.1 mg/dl (1.7-2.4); Phosphorus 3.1 mg/dl (2.5-4.9); Potassium 4.4 mmol/L (3.5-5.1)
[2022-04-13] MEDS: CYANOCOBALAMIN (B-12) 500 MCG TABLET PO SCH (08:24)
[2022-04-13] MEDS: CITALOPRAM 20 MG TAB PO SCH (08:24)
[2022-04-13] MEDS: FUROSEMIDE 40 MG TAB PO SCH (08:24)
[2022-04-13] MEDS: CEROVITE ADV FORMULA TAB PO SCH (08:24)
[2022-04-13] MEDS: ISOSORBIDE MONO EXTENDED REL 30 MG TABCR PO SCH (08:24)
[2022-04-13] MEDS: TOPIRAMATE 25 MG TAB PO SCH (08:24)
[2022-04-13] MEDS: METOPROLOL SUCC 25MG EXT REL TAB PO SCH (08:24)
[2022-04-13] MEDS: INSULIN ASPART PER UNIT SC SCH ×2 (08:25→12:30)
[2022-04-13] MEDS ORDERED: LANTUS PER UNIT CHARGE SQ SCH (09:00)
[2022-04-13] MEDS ORDERED: ASPIRIN 81 MG ECTAB PO SCH (09:00)
--- NOTE | 2022-04-13 10:39 | Cardiology Progress Note ---
Date of Service April 13, 2022 Assessment & Plan (1) Acute head trauma: (2) Fall: (3) Atrial flutter: (4) Pacemaker: (5) CAD (coronary artery disease): Plan Patient admitted post fall. Head CT x2 without evidence of bleed. Patient has a long history of gait instability and falls. She had a head bleed approx 1.5 years ago after sustaining a fall. Risks/benefits of anticoagulation discussed. Watchman also previously discussed while patient was seeing [facility] but not pursued. . At this time, her risks of ferry terminal agent anticoagulation with recurrent falls outweighs the benefit of longterm anticoagulation. She has not had recurrent atrial flutter on recent device interrogations, confirmed on device interrogation this admission with [employer] rep. Risks and benefits of ferry terminal agent anticoagulation discussed with patient once again today. she is agreeable and understanding of risks vs benefits and is in agreement that Xarelto should be stopped. Resume ASA 81 mg daily Continue all other cardiac medications including atorvastatin, isosorbide, furosemide. As an outpatient patient is to be taking metoprolol succinate 25 mg daily. Does not appear to be ordered on admission. Will resume. If she is not taking at home, she needs to resume therapy on discharge to treat PAF. Recommend PT/OT evals. Case discussed with Dr. Bettencourt. Will sign off. No further cardiac testing warranted at this time. Med list is up to date. Stable for discharge from cardiac standpoint. Admission and Anticipated Discharge Date Admission Date: April 11, 2022 Supervising Physician Co-Signing Physician Notes I agree with Ms. Cabrera's current plan. Okay to discharge patient from our standpoint. Subjective Patient working with PT at time of evaluation. She reports feeling good. No headache or vision changes. No dizziness or lightheadedness. No chest pain or SOB. Review of Systems Review of Systems: All systems reviewed & are unremarkable except as noted in HPI & below Physical Exam Constitutional: WD/WN, vitals as above + obese; no acute distress Neck: + thick neck Respiratory: normal respiratory effort; no respiratory distress Auscultation: lungs clear to auscultation bilaterally Cardiovascular: Rate/Rhythm: regular rate and regular rhythm Heart Sounds: no murmur Vessels: no JVD Extremities: no edema Chest (Breasts): Chest: + pacemaker (healed without erythema or drainage) Gastrointestinal (Abdomen): normal bowel sounds, soft, nontender, no hepatosplenomegaly Skin: no rashes, warm and dry Neurologic: PERRL, EOMI, accommodation nl, no face palsy, no dysarthria Results & Data ([facility]) Vital Signs (Past 12 Hours) Vital Signs Temp Pulse Pulse Pulse Pulse Pulse Resp 04/13/22 10:20 82 80 76 04/13/22 09:49 04/13/22 08:08 60 04/13/22 07:34 36.2 C L 62 16 04/13/22 05:00 36.5 C 60 18 04/12/22 23:00 60 04/12/22 23:00 36.7 C 60 20 Resp Resp Resp BP Pulse Ox Pulse Ox Pulse Ox 04/13/22 10:20 26 H 22 18 89 L 90 04/13/22 09:49 04/13/22 08:08 04/13/22 07:34 144/71 H 98 04/13/22 05:00 127/66 98 04/12/22 23:00 04/12/22 23:00 124/72 97 Pulse Ox O2 Del Method O2 Flow Rate 04/13/22 10:20 91 04/13/22 09:49 Room Air, Nasal Cannula 2 04/13/22 08:08 04/13/22 07:34 Nasal Cannula 2 04/13/22 05:00 2 04/12/22 23:00 04/12/22 23:00 Nasal Cannula 2 Laboratory Results CBC 04/13/22 Range/Units 07:46 WBC 6.81 (4.8-10.8) K/ul RBC 4.52 (3.93-5.22) M/uL Hgb 13.8 (12.0-16.0) g/dl Hct 43.4 (34.1-44.9) % Plt Count 168 (130-400) K/uL Comprehensive Metabolic Panel 04/12/22 04/13/22 Range/Units 06:22 07:46 Sodium 143 142 (136-145) mmol/L Potassium 3.8 4.4 (3.5-5.1) mmol/L Chloride 109 H 107 (98-107) mmol/L Carbon Dioxide 30 32 (21-32) mmol/L BUN 16 24 H (6-23) mg/dl Creatinine 0.74 0.92 (0.6-1.2) mg/dl Glucose 136 H 127 H (70-99(Fasting)) mg/dl Calcium 9.0 9.0 (8.5-10.1) mg/dl Intake and Output 04/12/22 04/13/22 04/13/22 22:59 06:59 14:59 Intake Total 360 / 360 Balance 360 / 360 Intake: Oral 360 / 360 Other: Weight 94.2 kg Weight Measurement Method Built in [facility] Diagnostic Findings Telemetry reviewed - Atrial paced, ventricular sensed in the 60's. no atrial flutter Medications Administered Current Inpatient Medications Acetaminophen (Acetaminophen 325 Mg Tab) 650 mg PO Q4H PRN PRN Reason: Pain or Fever Stop: 05/11/22 21:20 Acetaminophen (Acetaminophen 500 Mg Tab) 1,000 mg PO TID [facility] Stop: 05/11/22 21:20 Last Admin: 04/13/22 08:23 Dose: 1,000 mg Al Hydrox/Mg Hydrox/Simethicone (Aluminum/Magnesium Susp 30 Ml Udc) 15 ml PO Q4H PRN PRN Reason: Dyspepsia Stop: 05/11/22 21:20 Aspirin (Aspirin 81 Mg Ectab) 81 mg PO QAM [facility] Stop: 05/13/22 08:59 Last Admin: 04/13/22 08:23 Dose: 81 mg Atorvastatin Calcium (Atorvastatin 40 Mg Tab) 40 mg PO HS [facility] Stop: 05/11/22 21:20 Last Admin: 04/12/22 20:32 Dose: 40 mg Buspirone HCl (Buspirone 5 Mg Tab) 10 mg PO BID [facility] Stop: 05/11/22 21:20 Last Admin: 04/13/22 08:23 Dose: 10 mg Citalopram Hydrobromide (Citalopram 20 Mg Tab) 20 mg PO QAM [facility] Stop: 05/12/22 08:59 Last Admin: 04/13/22 08:24 Dose: 20 mg Cyanocobalamin (Cyanocobalamin (B-12) 500 Mcg Tablet) 1,000 mcg PO QAM [facility] Stop: 05/12/22 08:59 Last Admin: 04/13/22 08:24 Dose: 1,000 mcg Dextrose (Dextrose 50% 50 Ml Syringe) 25 - 50 ml IV UD PRN; Protocol PRN Reason: Hypoglycemia Protocol Stop: 05/11/22 21:20 Furosemide (Furosemide 40 Mg Tab) 40 mg PO QAM [facility] Stop: 05/12/22 08:59 Last Admin: 04/13/22 08:24 Dose: 40 mg Gabapentin (Gabapentin 400 Mg Cap) 400 mg PO TID [facility] Stop: 05/11/22 21:20 Last Admin: 04/13/22 08:23 Dose: 400 mg Glucagon (Glucagon For Inj 1 Mg Vial) 1 mg SQ UD PRN; Protocol PRN Reason: Hypoglycemia Protocol Stop: 05/11/22 21:20 Glucose (Glucose 40% Gel 15 Gm Tube) 15 - 30 gm PO UD PRN; Protocol PRN Reason: Hypoglycemia Protocol Stop: 05/11/22 21:20 Glucose (Glucose 10 Tab/Tube) 4 - 8 tab PO UD PRN; Protocol PRN Reason: Hypoglycemia Treatment Stop: 05/11/22 21:20 Insulin Aspart (Insulin Aspart Per Unit) 0 units SC ACHS [facility] Stop: 05/11/22 21:20 Last Admin: 04/13/22 08:25 Dose: 4 units Insulin Glargine (Lantus Per Unit Charge) 15 units SQ DAILY [facility] Stop: 05/13/22 08:59 Last Admin: 04/13/22 08:31 Dose: 15 units Isosorbide Mononitrate (Isosorbide [place] Extended Rel 30 Mg Tabcr) 30 mg PO QAM [facility] Stop: 05/12/22 08:59 Last Admin: 04/13/22 08:24 Dose: 30 mg Loratadine (Loratadine 10 Mg Tab) 10 mg PO DAILY [facility] Stop: 05/12/22 08:59 Last Admin: 04/13/22 08:23 Dose: 10 mg Magnesium Hydroxide (Magnesium Hydroxide Susp 30 Ml Udc) 30 ml PO Q12H PRN PRN Reason: Constipation Stop: 05/11/22 21:20 Melatonin (Melatonin 3 Mg Tab) 9 mg PO HS PRN PRN Reason: Insomnia Stop: 05/11/22 22:32 Metoprolol Succinate (Metoprolol Succ 25mg Ext Rel Tab) 25 mg PO QAM [facility] Stop: 05/12/22 10:44 Last Admin: 04/13/22 08:24 Dose: 25 mg Miscellaneous (Carbohydrates For Hypoglycemia ) 15 - 30 gm PO UD PRN PRN Reason: Hypoglycemia Protocol Stop: 05/11/22 21:20 Miscellaneous Information (Pharmacy Glycemic Mgmt Consult) 1 each N/A UD PRN PRN Reason: Consult Stop: 05/11/22 21:20 Multivitamins/Minerals (Cerovite Adv Formula Tab) 1 tab PO DAILY [facility] Stop: 05/12/22 08:59 Last Admin: 04/13/22 08:24 Dose: 1 tab Ondansetron HCl (Ondansetron Inj 2 Mg/Ml 2 Ml Vial) 4 mg IV Q6H PRN PRN Reason: Nausea Stop: 05/11/22 21:20 Polyethylene Glycol (Polyethylene (Miralax) 17 Gm Pack) 17 gm PO DAILY PRN PRN Reason: Constipation Stop: 05/11/22 21:20 Topiramate (Topiramate 25 Mg Tab) 25 mg PO QAM [facility] Stop: 05/12/22 08:59 Last Admin: 04/13/22 08:24 Dose: 25 mg (1) Acute head trauma Encounter type: initial encounter Qualified Code(s): S09.90XA - Unspecified injury of head, initial encounter (2) Fall Encounter type: initial encounter Qualified Code(s): W19.XXXA - Unspecified fall, initial encounter
--- NOTE | 2022-04-13 11:00 | Discharge Summary ---
Date of Service April 13, 2022 Admission HPI Per Admitting Provider Ms. Renuka Kramer is an 86 y/o female that presented to the [facility] ED s/p fall and reports that she was at home and her foot turned when she was in front of her stove and she 'fell flat on her back'. She lives with her , grandson, and brother. She denies LOC. Her grandson reports that he did not feel that she could recognize his voice and had a 'hazy gaze'. She reports that everyone was trying to help her. She felt SOB after she felt but prior to the fall felt completely fine. She reports that her head hurt and she had a big lump on her head. patient currently denies DOWLING, dizziness, CP, palpitations, N/V/D, fever/chills, or other illness, dysuria. Femur/pelvis/spine diagnostics all negative however compression fracture is new but she is not having any pain where that is so not sure if related to this fall Patient does report that she had a fall in 08/2020 and was in Neuro ICU. She is on xarelto s/p Afib and pacemaker placement. Patient is a poor historian regarding recent and past events. Additional PMH that includes: HTN, anxiety, CAD s/p pacemaker, COPD, CKD3, CHF, DM2. Patient is sitting upright in her bed in no apparent distress. She is able to sit on the side of the bed with minimal assistance. Pt reports that her head hurts. Patient to be admitted under hospitalist service for further evaluation and management please see A/P for further details. Admission Exam Per Admitting Provider Constitutional:+ obese elderly F, laying in bed in NAD HEENT: +scalp ecchymosis, EOMI, PERRL Respiratory: no respiratory distress Auscultation: lungs clear to auscultation bilaterally Cardiovascular:regular rate and regular rhythm, no murmur, no JVD, no edema Chest (Breasts):Chest: + pacemaker (healed without erythema or drainage) Gastrointestinal ( Abdomen): normal bowel sounds, soft, nontender, +obese Skin: no rashes, warm and dry Extremities: no LE edema, moves extremities Neurologic: PERRL, EOMI, no face palsy, no dysarthria, moves extremities Principal Diagnosis Fall hx of atrial flutter, sss Discharge Exam Constitutional:+ obese elderly F, laying in bed in NAD HEENT: +scalp ecchymosis, EOMI, PERRL Neck: + thick neck Respiratory: no respiratory distress Auscultation: lungs clear to auscultation bilaterally Cardiovascular:regular rate and regular rhythm, no murmur, no JVD, no edema Chest (Breasts):Chest: + pacemaker (healed without erythema or drainage) Gastrointestinal ( Abdomen): normal bowel sounds, soft, nontender, +obese Skin: no rashes, warm and dry Extremities: no LE edema, moves extremities Neurologic: PERRL, EOMI, no face palsy, no dysarthria, moves extremities Discharge Data Allergies Allergy/AdvReac Type Severity Reaction Status Date / Time No Known Allergies Allergy Unverified 04/11/22 18:50 Consultations 04/11/22 17:38 ED Decision to Admit Stat 04/11/22 18:33 Consult Cardiology Routine Ordered Studies 04/11/22 14:38 CT cervical spine wo con Stat FINDINGS: No acute fractures or subluxations are identified. The vertebral body heights and disk spaces are well maintained. The alignment is normal. Soft tissues are unremarkable. IMPRESSION: No evidence of acute bony injury. CT head/brain wo con Stat Findings: The ventricles, basal cisterns, and cerebral sulci are normal. There is no acute intracranial hemorrhage or evidence of acute territorial infarction. Neither mass effect, shift of the midline structures, nor abnormal extra-axial fluid collections are shown. Imaged portions of the paranasal sinuses and mastoid air cells are clear. The orbits appear normal. There are no acute fractures of the calvaria or scalp swelling. Impression: No acute intracranial hemorrhage, no evidence of acute territorial infarction or other acute intracranial disease process. 04/11/22 14:59 CT thoracic spine wo con Stat FINDINGS: There is a compression deformity of T7 which is new from prior exam. T10 compression deformity is unchanged. There is also irregularity of the inferior endplate of L1. Degenerative changes are noted in the visualized spine. Surrounding soft tissues are unremarkable. IMPRESSION: Multilevel compression deformities which are new from 2016, most prominent at T7 and L1. Correlation with point tenderness is recommended to exclude acute fracture. 04/12/22 08:[address] [CT head/brain wo con] Routine Impression: 1. No acute infarct or intracranial hemorrhage. 2. Atrophy and microvascular ischemic changes are noted. 3. Slight offset at the lateral wall the left orbit is noted. This is likely chronic as there is no periorbital soft tissue swelling to suggest an acute fracture. Hospital Course (1) Pre-syncope: (2) Fall: (3) Diabetes: (4) COPD (chronic obstructive pulmonary disease): (5) Chronic diastolic (congestive) heart failure: (6) Anxiety disorder: (7) Pacemaker: Plan 86 year old with fall. On xarelto. Imaging negative for SDH or SAH Presyncope: Status post fall: Recent fall 07/2020 status post small SDH and subtle small SAH with SICU admission at that time aspirin, and Plavix was discontinued and patient transition to Xarelto Discussed on the phone with Dr. Balderas with Neurology; recommend repeat CT scan and no need to hold Xaralto Ortho BP ordered PT/OT consults placed hip/pelvis and femur x-rays negative: spine x-ray: [id number] fracture is new but she is not having any pain where that is so not sure if related to this fall; consider ortho spine consult if painful; otherwise f/u OPT Repeat head CT - negative for any intracranial bleed CAD: Pacemaker: Atrial flutter: EKG 102 atrial paced rhythm with RBBB Pacemaker placed [address] Borges for bradycardia/SSS Diagnosed atrial flutter 08/2020; talked to Tom from [employer]: pacer was interrogated 4 days ago. he pulled up the report and everything was operational; no ventricular or atrial arrhythmias Orthostatic BPs ordered Cardiology consulted - no atrial flutter noted on pacer interrogation, cardiology also recommends to stop Xarelto given her frequent falls, and start aspirin instead Diabetes mellitus type 2: Last A1C 02/15/22: 7.2 Takes NPH 30U in AM 30 U in PM; also takes Trulicity SQ weekly; last dose this morning. FSBS and ACHS and SSI COPD: Wears 2 L nasal cannula at bedtime and as needed during daytime Denies orthopnea HLD: Takes atorvastatin; continue lipid panel 01/2022: TG 93, HDL 55, LDL 79 Anxiety Disorder: Headaches: Takes Buspirone; continue Takes Topiramate; continue Home Health Attestation I certify that this patient is under my care and that I, or a physicians customer support assistant working with me, had a face to-face encounter that meets the home health [id number] encounter requirements with this patient. The encounter with the patient was in whole, or in part, for the following medical condition, which is the primary reason for home health care (list medical condition): I certify that, based on my findings, the following services are medically necessary home health services: My clinical findings support the need for the above services because: Further, I certify that my clinical findings support that this patient is homebound (i.e. absences from home require considerable and taxing effort and are for medical reasons or denominational services or infrequently or of short dur ation when for other reasons) because: Certification for Home Health Services: Based on the above findings, I certify that this patient is confined to the home and needs intermittent group home care, physical therapy and/or speech therapy or continues to need occupational therapy. The patient is under my care, and I have initiated the establishment of the plan of care. This patient will be followed by a physician who will periodically review the plan of care. Total Time Total Time Spent Total Time Spent (In Minutes): 40 Discharge Plan Discharge Items Patient Disposition: Home - Home Health Services Reason For Visit: FALL Discharge Diagnosis: Fall hx of atrial flutter, sss Condition on Discharge: Good Activity: Per Instructions section Non-emergency contact: Primary Care Provider Call non-emergency contact if: you have any medication questions and your symptoms worsen Follow-up/Referrals: Deborah Hoang DO [Primary Care Provider] - (Date & Time 04/20/2022 12:00 PM Provider Deborah Hoang DO Department [facility] ) Diet: Carb Consistent or DM2 and Heart Healthy Diet Texture: Easy to Chew Addtl Attending Provider Instructions: Follow-up with your primary care doctor, the appointment was scheduled for you for April 20. As discussed, given your frequent falls, it is not recommended for you to take Xarelto. [facility] is recommending that you only take aspirin instead. Continue taking your other heart medications, including metoprolol, isosorbide mononitrate, furosemide, atorvastatin. Also, home physical therapy will be arranged for you by the case folder. Pending Studies at Discharge: No Stand-Alone Forms: My [employer], Smoking Cessation Medications and DC Order Prescriptions: New metoprolol succinate 25 mg Tablet Extended Release 24 Hr 25 mg PO QAM 30 Days Qty: 30 0RF aspirin 81 mg Tablet,Delayed Release (Dr/Ec) 81 mg PO QAM 30 Days Qty: 30 0RF Continued nitroglycerin 0.4 mg tablet, sublingual 0.4 mg SL Q5M PRN (Reason: Chest Pain) Qty: 25 furosemide 40 mg tablet 40 mg PO QAM atorvastatin 40 mg tablet 40 mg PO HS cyanocobalamin (vitamin B-12) [Vitamin B-12] 1,000 mcg Tablet 1,000 mcg PO QAM topiramate 25 mg tablet 25 mg PO QAM citalopram 20 mg tablet 20 mg PO QAM buspirone 10 mg tablet 10 mg PO BID Novolin 70-30 FlexPen U-100 100 unit/mL (70-30) Insulin Pen 30 unit SUBCUT QAM Qty: 0 0RF acetaminophen 650 mg Tablet Extended Release 1,300 mg PO TID Novolin 70-30 FlexPen U-100 100 unit/mL (70-30) insulin pen 18 unit SUBCUT QPM Trulicity 0.75 mg/0.5 mL pen injector 0.75 mg SUBCUT WK Rx Instructions: TAKE THIS MED EVERY TUESDAY gabapentin 100 mg Capsule 400 mg PO TID isosorbide mononitrate 30 mg tablet extended release 24 hr 30 mg PO QAM Ocuvite with Lutein 300 mcg-200 mg-27 mg-2 mg Tablet 1 tab PO DAILY Rx Instructions: administer after a meal melatonin 10 mg Tablet 10 mg PO HS PRN (Reason: Insomnia) loratadine 10 mg Tablet 10 mg PO DAILY Discontinued Xarelto 20 mg Tablet 20 mg PO QAM Rx Instructions: must administer with evening meal Discharge Orders: Discharge Order (Routine); Ordered 04/13/22 Ordered By: Ga Hi/Other Patient Handouts: Hypoglycemia (Low Blood Sugar), Managing Type 2 Diabetes Admission Data Admit Date/Time: 04/11/22 18:01 Attending Provider: aG Herzog Admit Provider: Ga Herzog Primary Care Provider: Deborah Hoang Other Providers: Ga Herzog ; Paulo Bettencourt
== END 2022-04-13 15:25 | disposition home health service (06) | DRG 312 ==
LOC: ED 13:31 → 2N 18:01

== ENCOUNTER 2023-01-14 18:24 | Inpatient (IN) ==
[2023-01-14] MEDS ORDERED: MoRPHine SULFATE 2 MG/ML CARP IV STA (19:06)
[2023-01-14] MEDS ORDERED: ONDANSETRON INJ 2 MG/ML 2 ML VIAL IV STA (19:06)
--- NOTE | 2023-01-14 19:08 | Emergency Department Note ---
Impression & Plan Closed rib fracture ADMIT ED Provider Note HPI: The patient is an 87-year-old female who presents emergency department chief complaint of a mechanical fall. Patient states that earlier this evening she was walking through her kitchen holding some dishes and she was not using her walker, she states that she lost her balance and fell onto her left side. Patient states that she felt acute pain in the area of her left lateral ribs since the fall. Patient states this is the area where she impacted the floor. On arrival to the ED, patient is alert, she is hemodynamically stable, patient denies hitting her head. Daughter notes that she believes that the patient is on anticoagulation for history of atrial flutter. Patient denies any neck pain, she is able to flex at the hips bilaterally on my assessment. ROS: - Per HPI Differential Diagnosis: Rib fractures, pneumothorax, hemothorax, solid organ injury/intra-abdominal hemorrhage, intracranial injury to include subdural hematoma, amongst other potential pathologies. *Outpatient medications and allergy history reviewed. *Pertinent external medical records reviewed. PE: General: Alert, morbidly obese HEENT: Normocephalic, trachea midline Eyes: Extraocular eye movement is intact, no scleral erythema Pulmonary: Clear to auscultation bilaterally, no wheezing Cardio: Regular rate and rhythm GI: Abdomen is soft to palpation : No suprapubic tenderness MSK: No evidence of trauma or malformation of the extremities, no edema Skin: No evidence of rash Neuro: Alert, no focal deficits Psychiatric: Cooperative patient monitor: (As interpreted by myself): - An order was placed for continuous cardiac monitoring - Patient was noted to be in paced rhythm with a rate of 70 EKG: (As interpreted by myself): Rate: 71 Rhythm: Atrial paced rhythm Intervals: TN interval 252 ms, QRS 166 ms, QTc [address] changes: No ST elevation Time: 1831 Interventions provided in ED: -IV morphine, IV Zofran Medical Decision Making: Patient presented to the emergency department with a chief complaint of left- sided rib pain after a fall. CT imaging of the head does not show any evidence of acute intracranial process, CT imaging of the cervical spine does not show any evidence of fracture, CT imaging of the chest does not show any evidence of acute traumatic pathology. CT imaging of the abdomen pelvis does note multiple left-sided rib fractures at ribs 7, 8, and 9 that are displaced without evidence of pneumothorax or hemothorax. Lab work shows no leukocytosis, hemoglobin is normal at 14.2, platelet count is within normal limits, CMP does not show any critical findings. On my reassessment following the above interventions and imaging findings, patient states she is still having pain. She was given an additional dose of IV morphine. Patient request admission for pain control. I did discuss the above findings with the on-call hospitalist, Dr. Kraus, he is in agreement to admit the patient for pain control given her current hemodynamic stability and lack of any other critical findings on CT imaging. Patient and her daughter at the bedside are in agreement to this plan and the patient was placed for admission in stable condition. Consultants: Hospitalist, Dr. Kraus Disposition discussion held by myself with: Patient Diagnosis: 1. Mechanical fall, acute 2. Rib fractures, closed, acute, left-sided, ribs 7, 8, 9 Disposition: Admission Sandoval Iyer DO Emergency Medicine Past Med/Surg History Medical History Anxiety Atrial flutter CAD (coronary artery disease) Mild to moderate nonobstructive CAD per cardio records Cardiac cath 2017- showed LM: normal, LAD: 30-40%, LCx: mild CAD, RCA: 30-40% Cardiac pacemaker Placed for SSS Last checked 12/22/21 (report not available)- follows w/ [facility] Chronic obstructive pulmonary disease CKD (chronic kidney disease), stage III Congestive heart failure Diabetes Type II Fall Hypertension On anticoagulant therapy xarelto On home oxygen therapy 3 lpm via [place]- mostly at night - PRN during the day Poor historian PAT interview done by son- unsure of many things- pt has mild cognitive issues per son Pre-syncope Surgical History H/O section S/P cholecystectomy Status post cardiac pacemaker procedure Family History Father Hypertension Social History Smoking Status: Former smoker Tobacco Type: Cigarettes Second Hand Exposure: Yes; Do You Dip or Chew Tobacco: No; Hx Alcohol Use: No Hx Substance Use: No Preferred Language: Kittitian Communication Ability: Effective Clinical Documentation Improvement Specialist Required: No Beliefs That Will Affect Care: None marital status: Current Living Situation: Spouse and Family current occupational status: retired Feels Safe at Home: Yes Assistive Devices: Glasses, Oxygen - at Night and Walker Allergies Allergies Allergy/AdvReac Type Severity Reaction Status Date / Time No Known Allergies Allergy Unverified 04/11/22 18:50 Home Meds Home Medications Medication Instructions Recorded Confirmed atorvastatin 40 mg tablet 40 mg PO HS 08/26/18 04/11/22 buspirone 10 mg tablet 10 mg PO BID 08/26/18 04/11/22 citalopram 20 mg tablet 20 mg PO QAM 08/26/18 04/11/22 cyanocobalamin (vitamin B-12) 1,000 mcg PO QAM 08/26/18 04/11/22 1,000 mcg tablet (Vitamin B-12) furosemide 40 mg tablet 40 mg PO QAM 08/26/18 04/11/22 topiramate 25 mg tablet 25 mg PO QAM 08/26/18 04/11/22 nitroglycerin 0.4 mg sublingual 0.4 mg sublingual Q5M PRN Chest 12/20/18 tablet Pain #25 tabs acetaminophen 650 mg 1,300 mg PO TID 04/11/22 04/11/22 tablet,extended release dulaglutide 0.75 mg/0.5 mL 0.75 mg subcut WK 04/11/22 04/11/22 subcutaneous pen injector (Trulicity) gabapentin 100 mg capsule 400 mg PO TID 04/11/22 04/11/22 insulin NPH-regular 70-30 U-100 18 unit subcut QPM 04/11/22 04/11/22 insulin 100 unit/mL subcutaneous pen (Novolin 70-30 FlexPen U-100 Insulin) isosorbide mononitrate 30 mg 30 mg PO QAM 04/11/22 04/11/22 tablet,extended release 24 hr loratadine 10 mg tablet 10 mg PO DAILY 04/11/22 04/11/22 melatonin 10 mg tablet 10 mg PO HS PRN Insomnia 04/11/22 04/11/22 vit A 300 mcg-C 200 mg-E 27 1 tab PO DAILY 04/11/22 04/11/22 mg-lutein 2 mg and minerals tablet (Ocuvite with Lutein) Previous Rx's Medication Instructions Recorded insulin NPH-regular 70-30 U-100 30 unit (0.3 mL) subcut QAM #0 mL 09/01/18 insulin 100 unit/mL subcutaneous pen (Novolin 70-30 FlexPen U-100 Insulin) albuterol sulfate 90 mcg/actuation 2 inh inhalation Q6H PRN shortness 01/05/23 aerosol inhaler (Proventil HFA) of breath or wheezing #8.5 grams Results & Data (ED) Vital Signs Vital Signs - 24 hr 01/14/23 18:29 01/14/23 19:05 01/14/23 20:14 Temperature 36.8 C Temperature Source Oral Pulse Rate 68 Pulse Rhythm Regular Pulse Strength Normal Respiratory Rate 18 Respiratory Effort / Characteristics Non-Labored Spontaneous Non-Labored Respiratory Depth Normal Normal Respiratory Pattern Regular Blood Pressure 131/58 L Blood Pressure Mean 82 Blood Pressure Position Lying Pulse Oximetry 99 Oxygen Delivery Method Room Air Nasal Cannula Oxygen Flow Rate 2 Sepsis Recent Fever Within 48 Hours No Sepsis New/Unexplained Change in Mental Status N/A Sepsis Action Taken by Nursing No Action Required 01/14/23 22:00 Temperature Temperature Source Pulse Rate Pulse Rhythm Pulse Strength Respiratory Rate Respiratory Effort / Characteristics Non-Labored Respiratory Depth Normal Respiratory Pattern Blood Pressure Blood Pressure Mean Blood Pressure Position Pulse Oximetry Oxygen Delivery Method Nasal Cannula Oxygen Flow Rate Sepsis Recent Fever Within 48 Hours Sepsis New/Unexplained Change in Mental Status Sepsis Action Taken by Nursing Laboratory Data 01/14/23 Unknown 01/14/23 Unknown Lab Results 01/14/23 01/14/23 01/14/23 Range/Units Unknown Unknown Unknown WBC 7.80 (4.8-10.8) K/ul RBC 4.68 (4.20-5.40) M/uL Hgb 14.2 (12.0-16.0) g/dl Hct 44.6 (37.0-47.0) % MCV 95.3 (80.0-100.0) fL MCH 30.3 (25.0-34.0) pg MCHC 31.8 L (32.0-36.0) g/dL RDW Std Deviation 45.1 (36.4-46.3) fL RDW Coeff of Chun 12.9 (11.5-14.5) % Plt Count 184 (130-400) K/uL MPV 10.8 (9.4-12.4) fL Immature Gran % (Auto) 0.8 % Neut % (Auto) 83.7 % Lymph % (Auto) 11.8 % [place] % (Auto) 3.5 % Eos % (Auto) 0.1 % Baso % (Auto) 0.1 % Neut # (Auto) 6.53 H (1.40-6.50) K/uL Lymph # (Auto) 0.92 L (1.2-3.4) K/uL [place] # (Auto) 0.27 (0.11-0.59) K/uL Eos # (Auto) 0.01 (0-0.50) K/uL Baso # (Auto) 0.01 (0-0.2) K/uL Immature Gran # (Auto) 0.06 (0.01-0.20) K/uL PT 12.8 H (9.0-12.0) Seconds INR 1.2 H (0.9-1.1) Sodium 140 (136-145) mmol/L Potassium 4.7 (3.5-5.1) mmol/L Chloride 103 (98-107) mmol/L Carbon Dioxide 31 (21-32) mmol/L Anion Gap 6 (3-11) BUN 19 (6-23) mg/dl Creatinine 1.06 (0.6-1.2) mg/dl Est Cr Clr Drug Dosing 41.2 ml/min Est GFR ( Amer) 55.4 ml/min Est GFR (Non-Af Amer) 47.8 ml/min BUN/Creatinine Ratio 17.9 (10-20) Glucose 275 H (70-99(Fasting)) mg/dl Calcium 9.0 (8.6-10.3) mg/dl Total Bilirubin 0.4 (0.2-1.0) mg/dl AST 17 (13-39) U/L ALT 11 (7-52) U/L Alkaline Phosphatase 120 H (34-104) U/L Total Protein 6.8 (6.0-8.3) gm/dl Albumin 3.6 (3.4-5.0) gm/dl Globulin 3.2 (2.5-4.0) gm/dl Albumin/Globulin Ratio 1.1 (0.9-2) Administered Medications Discontinued Medications Morphine Sulfate (Morphine Sulfate 2 Mg/Ml Carp) 2 mg IV NOW STA Stop: 01/14/23 19:07 Last Admin: 01/14/23 20:17 Dose: 2 mg Documented By: BRENTON Morphine Sulfate (Morphine Sulfate 4 Mg/Ml 1 Ml Carp\Vial) 4 mg IV NOW STA Stop: 01/14/23 23:41 Last Admin: 01/14/23 23:46 Dose: 4 mg Documented By: LUIZ Ondansetron HCl (Ondansetron Inj 2 Mg/Ml 2 Ml Vial) 4 mg IV NOW STA Stop: 01/14/23 19:07 Last Admin: 01/14/23 20:17 Dose: 4 mg Documented By: BRENTON Imaging Data Radiologist's Impression: Abdomen/Pelvis CT 01/14/23 19:05 Exam(s): CT ABDOMEN + PELVIS With Contrast IV Amt: 93ml optiray 320 EXAM: CT Abdomen and Pelvis With Intravenous Contrast CLINICAL HISTORY: Reason for exam: Fall L rib pain. TECHNIQUE: Axial computed tomography images of the abdomen and pelvis with intravenous contrast. CTDI is 34.37 mGy and DLP is 1728.78 mGy-cm. Automated exposure control was utilized for the study. A dose lowering technique was utilized adhering to the principles of ALARA. CONTRAST: Patient received 93ml optiray 320 of IV contrast COMPARISON: Comparison made to prior CT scan and pelvis from June 22, 2022. FINDINGS: Lung bases: Unremarkable. No mass. No consolidation. ABDOMEN: Liver: Unremarkable. No mass. Gallbladder and bile ducts: Unremarkable. No calcified stones. No ductal dilation. Pancreas: Unremarkable. No mass. No ductal dilation. Spleen: Unremarkable. No splenomegaly. Adrenals: Unremarkable. No mass. Kidneys and ureters: Unremarkable. No solid mass. No hydronephrosis. Stomach and bowel: Diverticulosis of the transverse, descending and sigmoid colon. No obstruction. No mucosal thickening. PELVIS: Appendix: No findings to suggest acute appendicitis. Bladder: Unremarkable. No mass. Reproductive: Unremarkable as visualized. ABDOMEN and PELVIS: Intraperitoneal space: Unremarkable. No free air. No significant fluid collection. Bones/joints: There are mildly displaced fractures of the left posterior seventh and eighth and ninth ribs No dislocation. Soft tissues: Unremarkable. Vasculature: Unremarkable. No abdominal aortic aneurysm. Lymph nodes: Unremarkable. No enlarged lymph nodes. IMPRESSION: No evidence of acute intra-abdominal pathology. Mild displaced fractures of the left posterior seventh eighth and ninth ribs. No pneumothorax or hemothorax. Diverticulosis of the transverse, descending and sigmoid colon. Electronically signed by: Suzi Mcneill MD 01/14/23 23:[address] 01/14/23 19:05 Exam(s): CT C SPINE EXAM: CT Cervical Spine Without Intravenous Contrast CLINICAL HISTORY: Reason for exam: Trauma. TECHNIQUE: Axial computed tomography images of the cervical spine without intravenous contrast. CTDI is 25.07 mGy and DLP is 467.16 mGy-cm. Automated exposure control was utilized for the study. A dose lowering technique was utilized adhering to the principles of ALARA. COMPARISON: No relevant prior studies available. FINDINGS: Vertebrae: Unremarkable. No acute fracture. Discs/spinal canal/neural foramina: No acute findings. No spinal canal stenosis. Soft tissues: Multiple thyroid nodules. IMPRESSION: No evidence of acute cervical spine pathology. Electronically signed by: Suzi Mcneill MD 01/14/23 23:[address] 01/14/23 19:05 Exam(s): CT CHEST With Contrast IV Amt: 93ml optiray 320 EXAM: CT Chest With Intravenous Contrast CLINICAL HISTORY: Reason for exam: Fall L rib pain. TECHNIQUE: Axial computed tomography images of the chest with intravenous contrast. CTDI is 37.53 mGy and DLP is 1005.39 mGy-cm. Automated exposure control was utilized for the study. A dose lowering technique was utilized adhering to the principles of ALARA. CONTRAST: Patient received 93ml optiray 320 of IV contrast COMPARISON: Comparison made to prior CT scan of the chest from April 15, 2016. FINDINGS: The study is limited as the thorax was only imaged to the T11 segment Lungs: Mild to moderate peribronchial thickening of the central and lower lobe bronchi. Increased interstitial opacities at the lung bases. No mass. No consolidation. Pleural space: Unremarkable. No pneumothorax. No significant effusion. Heart: Cardiomegaly. No significant pericardial effusion. No significant coronary artery calcifications. Bones/joints: Remote fracture deformities of the T2, T7 and T10 segments.. No acute fracture. No dislocation. Soft tissues: Thyroid nodules. Cardiac pacemaker in the left chest wall. Vasculature: Ascending aortic aneurysm measuring 35 mm in diameter. Lymph nodes: Unremarkable. No enlarged lymph nodes. IMPRESSION: No evidence of acute thoracic injury in this limited study. Findings concerned for bronchitis with pneumonitis, which may be of infectious or inflammatory etiologies. No consolidation. Cardiomegaly with pacer in place. Ascending aortic aneurysm. Electronically signed by: Suzi Mcneill MD 01/14/23 22:[address] 01/14/23 19:05 Exam(s): CT HEAD Without Contrast EXAM: CT Head Without Intravenous Contrast CLINICAL HISTORY: Reason for exam: Trauma. TECHNIQUE: Axial computed tomography images of the head/brain without intravenous contrast. CTDI is 35.67 mGy and DLP is 624.41 mGy-cm. Automated exposure control was utilized for the study. A dose lowering technique was utilized adhering to the principles of ALARA. COMPARISON: Comparison made to prior head CT from June 22, 2022. FINDINGS: Brain: Unremarkable. No hemorrhage. Moderate nonspecific white matter changes. No edema. Ventricles: Unremarkable. No ventriculomegaly. Bones/joints: Hyperostosis frontalis interna. No acute fracture. Soft tissues: Bilateral lens replacements.. Sinuses: Unremarkable as visualized. No acute sinusitis. Mastoid air cells: Unremarkable as visualized. No mastoid effusion. IMPRESSION: No evidence of acute intracranial pathology. Electronically signed by: Suzi Mcneill MD 01/14/23 22:20 PM Discharge Plan Visit Data Chief Complaint: Fall Stated Complaint: FELL IN KITCHEN, LOWER BACK PAIN, ELBOW LAC ED Provider: Sandoval Iyer Discharge Problem: Closed rib fracture Forms Stand Alone Forms: [facility] Prescriptions Prescriptions: No Action nitroglycerin 0.4 mg tablet, sublingual 0.4 mg SL Q5M PRN (Reason: Chest Pain) Qty: 25 furosemide 40 mg tablet 40 mg PO QAM atorvastatin 40 mg tablet 40 mg PO HS cyanocobalamin (vitamin B-12) [Vitamin B-12] 1,000 mcg Tablet 1,000 mcg PO QAM topiramate 25 mg tablet 25 mg PO QAM citalopram 20 mg tablet 20 mg PO QAM buspirone 10 mg tablet 10 mg PO BID Novolin 70-30 FlexPen U-100 100 unit/mL (70-30) Insulin Pen 30 unit SUBCUT QAM Qty: 0 0RF acetaminophen 650 mg Tablet Extended Release 1,300 mg PO TID Novolin 70-30 FlexPen U-100 100 unit/mL (70-30) insulin pen 18 unit SUBCUT QPM Janessa 0.75 mg/0.5 mL pen injector 0.75 mg SUBCUT WK Rx Instructions: TAKE THIS MED EVERY TUESDAY gabapentin 100 mg Capsule 400 mg PO TID isosorbide mononitrate 30 mg tablet extended release 24 hr 30 mg PO QAM Ocuvite with Lutein 300 mcg-200 mg-27 mg-2 mg Tablet 1 tab PO DAILY Rx Instructions: administer after a meal melatonin 10 mg Tablet 10 mg PO HS PRN (Reason: Insomnia) loratadine 10 mg Tablet 10 mg PO DAILY albuterol sulfate [Proventil HFA] 90 mcg/actuation HFA aerosol inhaler 2 inh inhalation Q6H PRN (Reason: shortness of breath or wheezing) Qty: 8.5 0RF Referrals Referrals: Deborah Hoang DO [Primary Care Provider] -
[2023-01-14 19:45] LABS: Basophils # (auto) 0.01 K/uL (0-0.2); Basophils % (auto) 0.1 %; Eosinophils # (auto) 0.01 K/uL (0-0.50); Eosinophils % (auto) 0.1 %; Hematocrit (blood only) 44.6 % (37.0-47.0); Hemoglobin 14.2 g/dl (12.0-16.0); Immature Granulocytes # (auto) 0.06 K/uL (0.01-0.20); Immature Granulocytes % (auto) 0.8 %; Lymphocytes # (auto) 0.92 K/uL (1.2-3.4); Lymphocytes % (auto) 11.8 %; Mean Corpuscular Hemoglobin 30.3 pg (25.0-34.0); Mean Corpuscular Hgb Conc 31.8 g/dL (32.0-36.0); Mean Corpuscular Volume 95.3 fL (80.0-100.0); Mean Platelet Volume 10.8 fL (9.4-12.4); Monocytes # (auto) 0.27 K/uL (0.11-0.59); Monocytes % (auto) 3.5 %; Neutrophils # (auto) 6.53 K/uL (1.40-6.50); Neutrophils % (auto) 83.7 %; Platelet Count 184 K/uL (130-400); RDW Coefficient of Variation 12.9 % (11.5-14.5); RDW Standard Deviation 45.1 fL (36.4-46.3); Red Blood Count 4.68 M/uL (4.20-5.40)
[2023-01-14 19:56] LABS: Albumin Level 3.6 gm/dl (3.4-5.0); Bilirubin,Total 0.4 mg/dl (0.2-1.0); Potassium 4.7 mmol/L (3.5-5.1)
[2023-01-14 20:02] LABS: Albumin Globulin Ratio 1.1 (0.9-2); BUN Creatinine Ratio 17.9 (10-20); Creatinine Clr Calc Pharmacy 41.2 ml/min; Est GFR (African American) 55.4 ml/min; Est GFR (Non-African American) 47.8 ml/min; Globulin 3.2 gm/dl (2.5-4.0); Total Protein 6.8 gm/dl (6.0-8.3)
[2023-01-14 20:11] LABS: INR 1.2 (0.9-1.1); Prothrombin Time 12.8 Seconds (9.0-12.0)
--- NOTE | 2023-01-14 22:20 | CT Scan Report ---
Exam(s): CT HEAD Without Contrast EXAM: CT Head Without Intravenous Contrast CLINICAL HISTORY: Reason for exam: Trauma. TECHNIQUE: Axial computed tomography images of the head/brain without intravenous contrast. CTDI is 35.67 mGy and DLP is 624.41 mGy-cm. Automated exposure control was utilized for the study. A dose lowering technique was utilized adhering to the principles of ALARA. COMPARISON: Comparison made to prior head CT from June 22, 2022. FINDINGS: Brain: Unremarkable. No hemorrhage. Moderate nonspecific white matter changes. No edema. Ventricles: Unremarkable. No ventriculomegaly. Bones/joints: Hyperostosis frontalis interna. No acute fracture. Soft tissues: Bilateral lens replacements.. Sinuses: Unremarkable as visualized. No acute sinusitis. Mastoid air cells: Unremarkable as visualized. No mastoid effusion. IMPRESSION: No evidence of acute intracranial pathology. Electronically signed by: Suzi Mcneill MD 01/14/23 22:20 PM
--- NOTE | 2023-01-14 22:33 | CT Scan Report ---
Exam(s): CT CHEST With Contrast IV Amt: 93ml optiray 320 EXAM: CT Chest With Intravenous Contrast CLINICAL HISTORY: Reason for exam: Fall L rib pain. TECHNIQUE: Axial computed tomography images of the chest with intravenous contrast. CTDI is 37.53 mGy and DLP is 1005.39 mGy-cm. Automated exposure control was utilized for the study. A dose lowering technique was utilized adhering to the principles of ALARA. CONTRAST: Patient received 93ml optiray 320 of IV contrast COMPARISON: Comparison made to prior CT scan of the chest from April 15, 2016. FINDINGS: The study is limited as the thorax was only imaged to the T11 segment Lungs: Mild to moderate peribronchial thickening of the central and lower lobe bronchi. Increased interstitial opacities at the lung bases. No mass. No consolidation. Pleural space: Unremarkable. No pneumothorax. No significant effusion. Heart: Cardiomegaly. No significant pericardial effusion. No significant coronary artery calcifications. Bones/joints: Remote fracture deformities of the T2, T7 and T10 segments.. No acute fracture. No dislocation. Soft tissues: Thyroid nodules. Cardiac pacemaker in the left chest wall. Vasculature: Ascending aortic aneurysm measuring 35 mm in diameter. Lymph nodes: Unremarkable. No enlarged lymph nodes. IMPRESSION: No evidence of acute thoracic injury in this limited study. Findings concerned for bronchitis with pneumonitis, which may be of infectious or inflammatory etiologies. No consolidation. Cardiomegaly with pacer in place. Ascending aortic aneurysm. Electronically signed by: Suzi Mcneill MD 01/14/23 22:32 PM
--- NOTE | 2023-01-14 23:12 | CT Scan Report ---
Exam(s): CT C SPINE EXAM: CT Cervical Spine Without Intravenous Contrast CLINICAL HISTORY: Reason for exam: Trauma. TECHNIQUE: Axial computed tomography images of the cervical spine without intravenous contrast. CTDI is 25.07 mGy and DLP is 467.16 mGy-cm. Automated exposure control was utilized for the study. A dose lowering technique was utilized adhering to the principles of ALARA. COMPARISON: No relevant prior studies available. FINDINGS: Vertebrae: Unremarkable. No acute fracture. Discs/spinal canal/neural foramina: No acute findings. No spinal canal stenosis. Soft tissues: Multiple thyroid nodules. IMPRESSION: No evidence of acute cervical spine pathology. Electronically signed by: Suzi Mcneill MD 01/14/23 23:12 PM
--- NOTE | 2023-01-14 23:26 | CT Scan Report ---
Exam(s): CT ABDOMEN + PELVIS With Contrast IV Amt: 93ml optiray 320 EXAM: CT Abdomen and Pelvis With Intravenous Contrast CLINICAL HISTORY: Reason for exam: Fall L rib pain. TECHNIQUE: Axial computed tomography images of the abdomen and pelvis with intravenous contrast. CTDI is 34.37 mGy and DLP is 1728.78 mGy-cm. Automated exposure control was utilized for the study. A dose lowering technique was utilized adhering to the principles of ALARA. CONTRAST: Patient received 93ml optiray 320 of IV contrast COMPARISON: Comparison made to prior CT scan and pelvis from June 22, 2022. FINDINGS: Lung bases: Unremarkable. No mass. No consolidation. ABDOMEN: Liver: Unremarkable. No mass. Gallbladder and bile ducts: Unremarkable. No calcified stones. No ductal dilation. Pancreas: Unremarkable. No mass. No ductal dilation. Spleen: Unremarkable. No splenomegaly. Adrenals: Unremarkable. No mass. Kidneys and ureters: Unremarkable. No solid mass. No hydronephrosis. Stomach and bowel: Diverticulosis of the transverse, descending and sigmoid colon. No obstruction. No mucosal thickening. PELVIS: Appendix: No findings to suggest acute appendicitis. Bladder: Unremarkable. No mass. Reproductive: Unremarkable as visualized. ABDOMEN and PELVIS: Intraperitoneal space: Unremarkable. No free air. No significant fluid collection. Bones/joints: There are mildly displaced fractures of the left posterior seventh and eighth and ninth ribs No dislocation. Soft tissues: Unremarkable. Vasculature: Unremarkable. No abdominal aortic aneurysm. Lymph nodes: Unremarkable. No enlarged lymph nodes. IMPRESSION: No evidence of acute intra-abdominal pathology. Mild displaced fractures of the left posterior seventh eighth and ninth ribs. No pneumothorax or hemothorax. Diverticulosis of the transverse, descending and sigmoid colon. Electronically signed by: Suzi Mcneill MD 01/14/23 23:24 PM
[2023-01-14] MEDS ORDERED: MoRPHine SULFATE 4 MG/ML 1 ML CARP\\VIAL IV STA (23:40)
--- NOTE | 2023-01-15 01:40 | History & Physical Report ---
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 Says had an episode of epistaxis last night Fall Seems mechanical fall Mildly displaced fracture of the left posterior 7, 8 and 9 ribs No pneumothorax or hemothorax Pain control PT OT Social service to help with discharge planning Possible pneumonitis on CAT scan Has dry cough Empiric Rocephin and doxycycline We will monitor Diabetic changing NPH 70/30 insulin to Lantus and Insulin sliding scale while in hospital We will follow the blood sugars and HbA1c levels Chronic diastolic CHF On Lasix We will monitor for volume overload History of CAD On statin,Imdur Beta-akila and Xarelto. History of a flutter On metoprolol and Xarelto Xarelto dose renally adjusted to 15mg daily per pharmacy recommendations, to consider at discharge. monitor for epistaxis History of sick sinus syndrome S/p pacemaker Morbid obesity On oxygen nightly Migraine On Topamax Depression Anxiety On citalopram and buspirone Peripheral neuropathy Gabapentin DVT prophylaxis on Xarelto Disposition medical floor Full code History of Present Illness Chief Complaint: Fall and rib fractures Primary Care Provider: Deborah Hoang DO 87-year-old female with past medical significant for type 2 diabetes, diabetic peripheral neuropathy, hyperlipidemia, chronic diastolic CHF, history of atrial flutter, pulmonary hypertension, sick sinus syndrome status post pacemaker, macular degeneration 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 Patient states she was walking in the kitchen when suddenly she lost balance and fell down. Did not hit her head. Fell on her left rib cage. No loss of consciousness. EMS was called and she was brought into the hospital. Says she has cough for long time. When she is coughing her ribs are hurting. No fevers. Currently no shortness of breath. No headache. Has some runny nose. Occasional sore throat.. Currently no nausea. Once in a while she gets abdominal pain but currently no pain. Normal bowel and bladder movements. Hemodynamics are stable. Allergies Allergy/AdvReac Type Severity Reaction Status Date / Time No Known Allergies Allergy Unverified 01/15/23 00:52 Home Medications Medication Instructions Recorded Confirmed Type acetaminophen 500 mg tablet 500 mg PO Q6H PRN Pain 01/15/23 01/15/23 History (Tylenol Extra Strength) albuterol sulfate 90 mcg/actuation 2 puff inhalation DIRECTED PRN 01/15/23 01/15/23 History aerosol inhaler Shortness Of Breath Or Wheezing atorvastatin 40 mg tablet 40 mg PO DAILY 01/15/23 01/15/23 History buspirone 5 mg tablet 5 mg PO AMHS 01/15/23 01/15/23 History citalopram 20 mg tablet 20 mg PO DAILY 01/15/23 01/15/23 History cyanocobalamin (vitamin B-12) 1,000 mcg PO DAILY 01/15/23 01/15/23 History 1,000 mcg tablet (Vitamin B-12) diclofenac sodium 1 % topical gel 4 g topical QID PRN Pain 01/15/23 01/15/23 History dulaglutide 1.5 mg/0.5 mL 1.5 mg subcut WE 01/15/23 01/15/23 History subcutaneous pen injector (Trulicity) furosemide 40 mg tablet 40 mg PO QAM 01/15/23 01/15/23 History gabapentin 100 mg capsule 200 mg PO TID 01/15/23 01/15/23 History insulin NPH-regular 70-30 U-100 14 unit subcut HS 01/15/23 01/15/23 History insulin 100 unit/mL subcutaneous pen (Novolin 70-30 FlexPen U-100 Insulin) insulin NPH-regular 70-30 U-100 26 unit subcut QAM 01/15/23 01/15/23 History insulin 100 unit/mL subcutaneous pen (Novolin 70-30 FlexPen U-100 Insulin) isosorbide mononitrate 30 mg 30 mg PO QAM 01/15/23 01/15/23 History tablet,extended release 24 hr loratadine 10 mg tablet 10 mg PO DAILY 01/15/23 01/15/23 History melatonin 5 mg tablet 5 mg PO HS 01/15/23 01/15/23 History metoprolol succinate 25 mg 25 mg PO QAM 01/15/23 01/15/23 History tablet,extended release 24 hr [id number] 250 mg-dha 90 1 cap PO DAILY 01/15/23 01/15/23 History mg-epa 160 [id number]-wtix-zeax capsule (Ocuvite Adult 50 Plus) rivaroxaban 20 mg tablet (Xarelto) 20 mg PO QPM 01/15/23 01/15/23 History topiramate 25 mg tablet 25 mg PO HS 01/15/23 01/15/23 History Past Med/Surg History Medical History Anxiety Atrial flutter CAD (coronary artery disease) Mild to moderate nonobstructive CAD per cardio records Cardiac cath 2016- showed LM: normal, LAD: 30-40%, LCx: mild CAD, RCA: 30-40% Cardiac pacemaker Placed for SSS Last checked 12/22/21 (report not available)- follows w/ [facility] Chronic obstructive pulmonary disease CKD (chronic kidney disease), stage III Congestive heart failure Diabetes Type II Fall Hypertension On anticoagulant therapy xarelto On home oxygen therapy 3 lpm via NC- mostly at night - PRN during the day Poor historian PAT interview done by son- unsure of many things- pt has mild cognitive issues per son Pre-syncope Surgical History H/O section S/P cholecystectomy Status post cardiac pacemaker procedure Family History Father Hypertension Social History Smoking Status: Never smoker Tobacco Type: Cigarettes Second Hand Exposure: Yes; Do You Dip or Chew Tobacco: No; Hx Alcohol Use: No Hx Substance Use: No Preferred Language: Ukrainian Communication Ability: Effective 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 ENT- oropharynx clear Neck- supple, no JVD, Lungs- clear to auscultation no wheezing or crackles. Heart- regular rhythm; no murmur, no gallop. Abdomen- normal bowel sounds, soft, nontender, no distension Extremities- mild pretibial edema present, no erythema seen. Neuro- alert, oriented x 3; PERRL no facial palsy; no dysarthria; obeys commands, moves extremities. Skin- warm & dry Results & Data Results & Data Vital Signs (Past 12 Hours) Vital Signs Temp Pulse Resp BP Pulse Ox O2 Del Method O2 Flow Rate 01/15/23 00:52 60 01/15/23 00:30 60 21 98 01/15/23 00:20 60 19 99 01/15/23 00:10 60 21 99 01/15/23 00:01 60 22 135/70 98 Nasal Cannula 2 01/14/23 22:00 Nasal Cannula 01/14/23 19:05 Nasal Cannula 2 01/14/23 18:29 36.8 C 68 18 131/58 L 99 Room Air Diagnostic Findings Laboratory Results WBC 7.80 K/ul (4.8-10.8) 01/14/23 Unknown RBC 4.68 M/uL (4.20-5.40) 01/14/23 Unknown Hgb 14.2 g/dl (12.0-16.0) 01/14/23 Unknown Hct 44.6 % (37.0-47.0) 01/14/23 Unknown MCV 95.3 fL (80.0-100.0) 01/14/23 Unknown MCH 30.3 pg (25.0-34.0) 01/14/23 Unknown MCHC 31.8 g/dL (32.0-36.0) L 01/14/23 Unknown RDW Std Deviation 45.1 fL (36.4-46.3) 01/14/23 Unknown RDW Coeff of Chun 12.9 % (11.5-14.5) 01/14/23 Unknown Plt Count 184 K/uL (130-400) 01/14/23 Unknown MPV 10.8 fL (9.4-12.4) 01/14/23 Unknown Immature Gran % (Auto) 0.8 % 01/14/23 Unknown Neut % (Auto) 83.7 % 01/14/23 Unknown Lymph % (Auto) 11.8 % 01/14/23 Unknown Gregory % (Auto) 3.5 % 01/14/23 Unknown Eos % (Auto) 0.1 % 01/14/23 Unknown Baso % (Auto) 0.1 % 01/14/23 Unknown Neut # (Auto) 6.53 K/uL (1.40-6.50) H 01/14/23 Unknown Lymph # (Auto) 0.92 K/uL (1.2-3.4) L 01/14/23 Unknown Gregory # (Auto) 0.27 K/uL (0.11-0.59) 01/14/23 Unknown Eos # (Auto) 0.01 K/uL (0-0.50) 01/14/23 Unknown Baso # (Auto) 0.01 K/uL (0-0.2) 01/14/23 Unknown Immature Gran # (Auto) 0.06 K/uL (0.01-0.20) 01/14/23 Unknown PT 12.8 Seconds (9.0-12.0) H 01/14/23 Unknown INR 1.2 (0.9-1.1) H 01/14/23 Unknown Sodium 140 mmol/L (136-145) 01/14/23 Unknown Potassium 4.7 mmol/L (3.5-5.1) 01/14/23 Unknown Chloride 103 mmol/L (98-107) 01/14/23 Unknown Carbon Dioxide 31 mmol/L (21-32) 01/14/23 Unknown Anion Gap 6 (3-11) 01/14/23 Unknown BUN 19 mg/dl (6-23) 01/14/23 Unknown Creatinine 1.06 mg/dl (0.6-1.2) 01/14/23 Unknown Est Cr Clr Drug Dosing 41.2 ml/min 01/14/23 Unknown Est GFR ( Amer) 55.4 ml/min 01/14/23 Unknown Est GFR (Non-Af Amer) 47.8 ml/min 01/14/23 Unknown BUN/Creatinine Ratio 17.9 (10-20) 01/14/23 Unknown Glucose 275 mg/dl (70-99(Fasting)) H 01/14/23 Unknown Calcium 9.0 mg/dl (8.6-10.3) 01/14/23 Unknown Total Bilirubin 0.4 mg/dl (0.2-1.0) 01/14/23 Unknown AST 17 U/L (13-39) 01/14/23 Unknown ALT 11 U/L (7-52) 01/14/23 Unknown Alkaline Phosphatase 120 U/L (34-104) H 01/14/23 Unknown Total Protein 6.8 gm/dl (6.0-8.3) 01/14/23 Unknown Albumin 3.6 gm/dl (3.4-5.0) 01/14/23 Unknown Globulin 3.2 gm/dl (2.5-4.0) 01/14/23 Unknown Albumin/Globulin Ratio 1.1 (0.9-2) 01/14/23 Unknown Impressions Abdomen/Pelvis CT 01/14/23 19:05 Exam(s): CT ABDOMEN + PELVIS With Contrast IV Amt: 93ml optiray 320 EXAM: CT Abdomen and Pelvis With Intravenous Contrast CLINICAL HISTORY: Reason for exam: Fall L rib pain. TECHNIQUE: Axial computed tomography images of the abdomen and pelvis with intravenous contrast. CTDI is 34.37 mGy and DLP is 1728.78 mGy-cm. Automated exposure control was utilized for the study. A dose lowering technique was utilized adhering to the principles of ALARA. CONTRAST: Patient received 93ml optiray 320 of IV contrast COMPARISON: Comparison made to prior CT scan and pelvis from June 22, 2022. FINDINGS: Lung bases: Unremarkable. No mass. No consolidation. ABDOMEN: Liver: Unremarkable. No mass. Gallbladder and bile ducts: Unremarkable. No calcified stones. No ductal dilation. Pancreas: Unremarkable. No mass. No ductal dilation. Spleen: Unremarkable. No splenomegaly. Adrenals: Unremarkable. No mass. Kidneys and ureters: Unremarkable. No solid mass. No hydronephrosis. Stomach and bowel: Diverticulosis of the transverse, descending and sigmoid colon. No obstruction. No mucosal thickening. PELVIS: Appendix: No findings to suggest acute appendicitis. Bladder: Unremarkable. No mass. Reproductive: Unremarkable as visualized. ABDOMEN and PELVIS: Intraperitoneal space: Unremarkable. No free air. No significant fluid collection. Bones/joints: There are mildly displaced fractures of the left posterior seventh and eighth and ninth ribs No dislocation. Soft tissues: Unremarkable. Vasculature: Unremarkable. No abdominal aortic aneurysm. Lymph nodes: Unremarkable. No enlarged lymph nodes. IMPRESSION: No evidence of acute intra-abdominal pathology. Mild displaced fractures of the left posterior seventh eighth and ninth ribs. No pneumothorax or hemothorax. Diverticulosis of the transverse, descending and sigmoid colon. Electronically signed by: Suzi Mcneill MD 01/14/23 23:[address] 01/14/23 19:05 Exam(s): CT C SPINE EXAM: CT Cervical Spine Without Intravenous Contrast CLINICAL HISTORY: Reason for exam: Trauma. TECHNIQUE: Axial computed tomography images of the cervical spine without intravenous contrast. CTDI is 25.07 mGy and DLP is 467.16 mGy-cm. Automated exposure control was utilized for the study. A dose lowering technique was utilized adhering to the principles of ALARA. COMPARISON: No relevant prior studies available. FINDINGS: Vertebrae: Unremarkable. No acute fracture. Discs/spinal canal/neural foramina: No acute findings. No spinal canal stenosis. Soft tissues: Multiple thyroid nodules. IMPRESSION: No evidence of acute cervical spine pathology. Electronically signed by: Suzi Mcneill MD 01/14/23 23:[address] 01/14/23 19:05 Exam(s): CT CHEST With Contrast IV Amt: 93ml optiray 320 EXAM: CT Chest With Intravenous Contrast CLINICAL HISTORY: Reason for exam: Fall L rib pain. TECHNIQUE: Axial computed tomography images of the chest with intravenous contrast. CTDI is 37.53 mGy and DLP is 1005.39 mGy-cm. Automated exposure control was utilized for the study. A dose lowering technique was utilized adhering to the principles of ALARA. CONTRAST: Patient received 93ml optiray 320 of IV contrast COMPARISON: Comparison made to prior CT scan of the chest from April 15, 2016. FINDINGS: The study is limited as the thorax was only imaged to the T11 segment Lungs: Mild to moderate peribronchial thickening of the central and lower lobe bronchi. Increased interstitial opacities at the lung bases. No mass. No consolidation. Pleural space: Unremarkable. No pneumothorax. No significant effusion. Heart: Cardiomegaly. No significant pericardial effusion. No significant coronary artery calcifications. Bones/joints: Remote fracture deformities of the T2, T7 and T10 segments.. No acute fracture. No dislocation. Soft tissues: Thyroid nodules. Cardiac pacemaker in the left chest wall. Vasculature: Ascending aortic aneurysm measuring 35 mm in diameter. Lymph nodes: Unremarkable. No enlarged lymph nodes. IMPRESSION: No evidence of acute thoracic injury in this limited study. Findings concerned for bronchitis with pneumonitis, which may be of infectious or inflammatory etiologies. No consolidation. Cardiomegaly with pacer in place. Ascending aortic aneurysm. Electronically signed by: Suzi Mcneill MD 01/14/23 22:[address] 01/14/23 19:05 Exam(s): CT HEAD Without Contrast EXAM: CT Head Without Intravenous Contrast CLINICAL HISTORY: Reason for exam: Trauma. TECHNIQUE: Axial computed tomography images of the head/brain without intravenous contrast. CTDI is 35.67 mGy and DLP is 624.41 mGy-cm. Automated exposure control was utilized for the study. A dose lowering technique was utilized adhering to the principles of ALARA. COMPARISON: Comparison made to prior head CT from June 22, 2022. FINDINGS: Brain: Unremarkable. No hemorrhage. Moderate nonspecific white matter changes. No edema. Ventricles: Unremarkable. No ventriculomegaly. Bones/joints: Hyperostosis frontalis interna. No acute fracture. Soft tissues: Bilateral lens replacements.. Sinuses: Unremarkable as visualized. No acute sinusitis. Mastoid air cells: Unremarkable as visualized. No mastoid effusion. IMPRESSION: No evidence of acute intracranial pathology. Electronically signed by: Suzi Mcneill MD 01/14/23 22:20 PM ECG Additional Comments: EKG atrial paced rhythm with prolonged AV conduction at rate of 71. Right bundle branch block Code Status & VTE Plan VTE Prophylaxis Plan VTE Prophylaxis will be ordered: Yes
[2023-01-15] MEDS ORDERED: GLUCAGON FOR INJ 1 MG VIAL SQ PRN (02:48)
[2023-01-15] MEDS ORDERED: GLUCOSE 10 TAB/TUBE PO PRN (02:48)
[2023-01-15] MEDS ORDERED: CARBOHYDRATES FOR HYPOGLYCEMIA PO PRN (02:48)
[2023-01-15] MEDS ORDERED: SODIUM CHLORIDE 0.9% 1000ML 1,000 ML IV SCH (02:48)
[2023-01-15] MEDS ORDERED: DEXTROSE 50% 50 ML SYRINGE IV PRN (02:48)
[2023-01-15] MEDS ORDERED: POLYETHYLENE (MIRALAX) 17 GM PACK PO PRN (02:48)
[2023-01-15] MEDS ORDERED: DICLOFENAC SOD 1% GEL 100 GM TUBE EXT PRN (02:48)
[2023-01-15] MEDS ORDERED: GLUCOSE 40% GEL 15 GM TUBE PO PRN (02:48)
[2023-01-15] MEDS ORDERED: ALBUTEROL HFA 8 GM INHALER INH PRN (02:48)
[2023-01-15] MEDS: cefTRIAXone SODIUM 2,000 MG in DEXTROSE 5% 50 ML IV SCH (04:03)
[2023-01-15] MEDS: DOXYCYCLINE HYCLATE 100 MG in DEXTROSE 5% 100 ML IV SCH ×2 (04:57→15:40)
--- NOTE | 2023-01-15 07:40 | Communication Note ---
Date of Service: January 15, 2023 Pt seen this AM, laying in bed complaining of pain in the left ribcage area. Tender on exam on the left chest wall. IV Dilaudid 0.25mg ordered, has oxycodone 5mg q6h standing prn order.
[2023-01-15] MEDS: INSULIN ASPART PER UNIT CHARGE SC SCH ×4 (09:12→20:49)
[2023-01-15] MEDS: ATORVASTATIN 40 MG TAB PO SCH (09:12)
[2023-01-15] MEDS: CITALOPRAM 20 MG TAB PO SCH (09:13)
[2023-01-15] MEDS: busPIRone 5 MG TAB PO SCH ×2 (09:13→20:50)
[2023-01-15] MEDS: GABAPENTIN 100 MG CAP PO SCH ×3 (09:13→20:50)
[2023-01-15] MEDS: CYANOCOBALAMIN (B-12) 500 MCG TABLET PO SCH (09:13)
[2023-01-15] MEDS: LORATADINE 10 MG TAB PO SCH (09:13)
[2023-01-15] MEDS: LANTUS PER UNIT CHARGE SQ SCH (09:13)
[2023-01-15] MEDS: ISOSORBIDE MONO EXTENDED REL 30 MG TABCR PO SCH (09:13)
[2023-01-15] MEDS: FUROSEMIDE 40 MG TAB PO SCH (09:13)
[2023-01-15] MEDS: METOPROLOL SUCC 25MG EXT REL TAB PO SCH (09:13)
[2023-01-15 10:40] LABS: BUN Creatinine Ratio 18.8 (10-20); Calcium 8.9 mg/dl (8.6-10.3); Creatinine Clr Calc Pharmacy 44.3 ml/min; Est GFR (African American) 62.5 ml/min; Est GFR (Non-African American) 53.9 ml/min; Magnesium 1.8 mg/dl (1.7-2.4); Potassium 4.2 mmol/L (3.5-5.1)
[2023-01-15 10:44] LABS: Basophils # (auto) 0.02 K/uL (0-0.2); Basophils % (auto) 0.2 %; Eosinophils # (auto) 0.24 K/uL (0-0.50); Eosinophils % (auto) 2.3 %; Hemoglobin 13.3 g/dl (12.0-16.0); Immature Granulocytes # (auto) 0.03 K/uL (0.01-0.20); Immature Granulocytes % (auto) 0.3 %; Lymphocytes # (auto) 1.32 K/uL (1.2-3.4); Lymphocytes % (auto) 12.9 %; Mean Corpuscular Hemoglobin 30.2 pg (25.0-34.0); Mean Corpuscular Hgb Conc 32.4 g/dL (32.0-36.0); Mean Corpuscular Volume 93.2 fL (80.0-100.0); Mean Platelet Volume 10.4 fL (9.4-12.4); Monocytes # (auto) 0.89 K/uL (0.11-0.59); Monocytes % (auto) 8.7 %; Neutrophils # (auto) 7.74 K/uL (1.40-6.50); Neutrophils % (auto) 75.6 %; Platelet Count 145 K/uL (130-400); RDW Coefficient of Variation 13.1 % (11.5-14.5); RDW Standard Deviation 44.6 fL (36.4-46.3); White Blood Count 10.24 K/ul (4.8-10.8)
[2023-01-15 11:03] LABS: Estimated Average Glucose 209 mg/dl; Hemoglobin A1C 8.9 % (4.5-5.6)
[2023-01-15] MEDS ORDERED: HYDROmorphone INJ 0.5 MG/0.5 ML SYR IV STA (11:45)
[2023-01-15] MEDS: oxyCODONE HCL IR 5 MG TAB (IMMEDIATE RELEASE) PO PRN ×2 (15:38→23:54)
[2023-01-15] MEDS: RIVAROXABAN 15 MG TAB PO SCH (17:38)
[2023-01-15] MEDS: TOPIRAMATE 25 MG TAB PO SCH (20:50)
[2023-01-15] MEDS: MELATONIN 3 MG TAB PO SCH (20:50)
[2023-01-15] MEDS: ACETAMINOPHEN 325 MG TAB PO PRN (20:51)
[2023-01-15] MEDS ORDERED: RIVAROXABAN 20 MG TAB PO SCH (21:00)
[2023-01-16] MEDS: cefTRIAXone SODIUM 2,000 MG in DEXTROSE 5% 50 ML IV SCH (04:12)
[2023-01-16] MEDS: DOXYCYCLINE HYCLATE 100 MG in DEXTROSE 5% 100 ML IV SCH ×2 (04:41→16:51)
[2023-01-16] MEDS: oxyCODONE HCL IR 5 MG TAB (IMMEDIATE RELEASE) PO PRN ×3 (05:57→21:52)
[2023-01-16] MEDS: INSULIN ASPART PER UNIT CHARGE SC SCH ×4 (09:10→20:28)
[2023-01-16] MEDS: LANTUS PER UNIT CHARGE SQ SCH (09:10)
[2023-01-16] MEDS: ACETAMINOPHEN 325 MG TAB PO PRN (09:10)
[2023-01-16] MEDS: CYANOCOBALAMIN (B-12) 500 MCG TABLET PO SCH (09:12)
[2023-01-16] MEDS: ISOSORBIDE MONO EXTENDED REL 30 MG TABCR PO SCH (09:13)
[2023-01-16] MEDS: GABAPENTIN 100 MG CAP PO SCH ×3 (09:13→19:34)
[2023-01-16] MEDS: FUROSEMIDE 40 MG TAB PO SCH (09:13)
[2023-01-16] MEDS: CITALOPRAM 20 MG TAB PO SCH (09:13)
[2023-01-16] MEDS: ATORVASTATIN 40 MG TAB PO SCH ×2 (09:13→19:34)
[2023-01-16] MEDS: LORATADINE 10 MG TAB PO SCH (09:14)
[2023-01-16] MEDS: METOPROLOL SUCC 25MG EXT REL TAB PO SCH (09:14)
[2023-01-16] MEDS: busPIRone 5 MG TAB PO SCH ×2 (09:14→19:34)
[2023-01-16 09:38] LABS: Basophils # (auto) 0.01 K/uL (0-0.2); Basophils % (auto) 0.1 %; Eosinophils # (auto) 0.22 K/uL (0-0.50); Eosinophils % (auto) 1.9 %; Hematocrit (blood only) 42.5 % (37.0-47.0); Immature Granulocytes # (auto) 0.07 K/uL (0.01-0.20); Immature Granulocytes % (auto) 0.6 %; Lymphocytes # (auto) 1.14 K/uL (1.2-3.4); Lymphocytes % (auto) 9.9 %; Mean Corpuscular Hemoglobin 29.7 pg (25.0-34.0); Mean Corpuscular Hgb Conc 30.6 g/dL (32.0-36.0); Mean Corpuscular Volume 97.3 fL (80.0-100.0); Mean Platelet Volume 10.7 fL (9.4-12.4); Monocytes # (auto) 1.04 K/uL (0.11-0.59); Neutrophils # (auto) 9.07 K/uL (1.40-6.50); Neutrophils % (auto) 78.5 %; Platelet Count 135 K/uL (130-400); RDW Coefficient of Variation 13.1 % (11.5-14.5); RDW Standard Deviation 46.7 fL (36.4-46.3); Red Blood Count 4.37 M/uL (4.20-5.40); White Blood Count 11.55 K/ul (4.8-10.8)
[2023-01-16 10:00] LABS: BUN Creatinine Ratio 21.1 (10-20); Creatinine Clr Calc Pharmacy 44.8 ml/min; Est GFR (African American) 63.3 ml/min; Est GFR (Non-African American) 54.6 ml/min; Potassium 4.4 mmol/L (3.5-5.1)
[2023-01-16] MEDS ORDERED: HYDROmorphone INJ 0.5 MG/0.5 ML SYR IV PRN (11:34)
[2023-01-16] MEDS ORDERED: ACETAMINOPHEN 500 MG TAB PO PRN (11:36)
--- NOTE | 2023-01-16 13:56 | Hospitalist Progress Note ---
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 Fall/Rib Fractures mechanical fall at home Mildly displaced fracture of the left posterior 7, 8 and 9 ribs No pneumothorax or hemothorax Continue with optimal pain control- pt with complaint of pain this AM. PT/OT Possible pneumonitis on CAT scan Has dry cough Continue Rocephin and doxycycline DMII hgba1c of 8.9 Insulin sliding scale while in hospital hold home meds Chronic diastolic CHF On Lasix monitor for volume overload History of CAD On statin,Imdur Beta-akila and Xarelto. History of a flutter On metoprolol and Xarelto Xarelto dose renally adjusted to 15mg daily per pharmacy recommendations, to consider at discharge. monitor for epistaxis History of sick sinus syndrome S/p pacemaker Morbid obesity On oxygen nightly Migraine On Topamax Depression Anxiety On citalopram and buspirone Peripheral neuropathy Gabapentin DVT prophylaxis on Xarelto Disposition medical floor Full code Admission and Anticipated Discharge Date Admission Date: January 15, 2023 Subjective Pt seen this AM. States that she is in pain, especially in the left hip area. Denies SOB or chest pain. States has not had a BM or passed gas. Unable to eat. Review of Systems Review of Systems: All systems reviewed & are unremarkable except as noted in Subjective Physical Exam Physical Exam: General: Alert, oriented. States that she is having pain Psych: Appropriate mood and affect Neuro:Unable to move HEENT: NC/AT CV: RRR, Normal s1, s2. Resp: no increased effort of breathing. Abdomen: Soft, nontender, nondistended. Results & Data Results & Data Vital Signs (Past 12 Hours) Vital Signs Temp Pulse Resp BP Pulse Ox O2 Del Method O2 Flow Rate 01/16/23 07:30 Nasal Cannula 3 08/20/23 07:19 36.8 C 61 16 159/69 H 93 Nasal Cannula 2
[2023-01-16] MEDS: RIVAROXABAN 15 MG TAB PO SCH (16:51)
[2023-01-16] MEDS: MELATONIN 3 MG TAB PO SCH (19:33)
[2023-01-16] MEDS: HYDROmorphone INJ 0.5 MG/0.5 ML SYR IV PRN (19:34)
[2023-01-16] MEDS: TOPIRAMATE 25 MG TAB PO SCH (19:34)
[2023-01-17] MEDS: cefTRIAXone SODIUM 2,000 MG in DEXTROSE 5% 50 ML IV SCH (03:33)
[2023-01-17] MEDS: DOXYCYCLINE HYCLATE 100 MG in DEXTROSE 5% 100 ML IV SCH ×2 (03:34→17:22)
[2023-01-17] MEDS ORDERED: LEVALBUTEROL 1.25 MG/3 ML NEB NEB STA (06:27)
[2023-01-17] MEDS ORDERED: FUROSEMIDE INJ 20 MG/2 ML VIAL IV ONE (06:32)
--- NOTE | 2023-01-17 07:00 | XRay Report ---
XR chest 1V portable HISTORY: 87 years-old Female hypoxia acute hypoxia COMPARISON: Chest CT 01/14/2023 TECHNIQUE: AP view of the chest FINDINGS: Cardiac silhouette is enlarged. Left subclavian pacer. Atherosclerosis of the aorta. Mild right hemid iaphragmatic elevation. Pulmonary vascular congestion without pneumothorax, pleural effusion or airsp kala consolidation. Bones appear grossly intact. IMPRESSION: Cardiomegaly with pulmonary vascular congestion. ACT 112: Negative or not required by law. The above report was generated using voice recognition software. It may contain grammatical, syntax o r spelling errors. Electronically signed by: Nikita Burks M.D. 01/17/2023 6:59 AM
[2023-01-17 07:28] LABS: Basophils # (auto) 0.03 K/uL (0-0.2); Basophils % (auto) 0.3 %; Eosinophils # (auto) 0.18 K/uL (0-0.50); Eosinophils % (auto) 1.6 %; Hematocrit (blood only) 39.6 % (37.0-47.0); Hemoglobin 12.4 g/dl (12.0-16.0); Immature Granulocytes # (auto) 0.06 K/uL (0.01-0.20); Immature Granulocytes % (auto) 0.5 %; Lymphocytes # (auto) 1.24 K/uL (1.2-3.4); Lymphocytes % (auto) 11.2 %; Mean Corpuscular Hgb Conc 31.3 g/dL (32.0-36.0); Mean Corpuscular Volume 95.7 fL (80.0-100.0); Mean Platelet Volume 10.8 fL (9.4-12.4); Monocytes # (auto) 1.24 K/uL (0.11-0.59); Monocytes % (auto) 11.2 %; Neutrophils # (auto) 8.28 K/uL (1.40-6.50); Neutrophils % (auto) 75.2 %; Platelet Count 125 K/uL (130-400); RDW Standard Deviation 45.8 fL (36.4-46.3); Red Blood Count 4.14 M/uL (4.20-5.40); White Blood Count 11.03 K/ul (4.8-10.8)
[2023-01-17 07:51] LABS: BUN Creatinine Ratio 22.1 (10-20); Calcium 9.3 mg/dl (8.6-10.3); Creatinine Clr Calc Pharmacy 49.5 ml/min; Est GFR (African American) 71.4 ml/min; Est GFR (Non-African American) 61.6 ml/min
[2023-01-17] MEDS: HYDROmorphone INJ 0.5 MG/0.5 ML SYR IV PRN ×2 (07:54→23:33)
[2023-01-17] MEDS: INSULIN ASPART PER UNIT CHARGE SC SCH ×4 (08:31→21:03)
[2023-01-17] MEDS: LANTUS PER UNIT CHARGE SQ SCH (08:39)
[2023-01-17] MEDS: busPIRone 5 MG TAB PO SCH ×2 (08:42→21:04)
[2023-01-17] MEDS: FUROSEMIDE 40 MG TAB PO SCH (08:43)
[2023-01-17] MEDS: METOPROLOL SUCC 25MG EXT REL TAB PO SCH (08:43)
[2023-01-17] MEDS: GABAPENTIN 100 MG CAP PO SCH ×3 (08:43→21:04)
[2023-01-17] MEDS: LORATADINE 10 MG TAB PO SCH (08:43)
[2023-01-17] MEDS: ISOSORBIDE MONO EXTENDED REL 30 MG TABCR PO SCH (08:43)
[2023-01-17] MEDS: CITALOPRAM 20 MG TAB PO SCH (08:44)
[2023-01-17] MEDS: CYANOCOBALAMIN (B-12) 500 MCG TABLET PO SCH (08:44)
--- NOTE | 2023-01-17 08:50 | Electrocardiogram Report ---
Test Reason : Blood Pressure : / mmHG Vent. Rate : 071 BPM Atrial Rate : 071 BPM P-R Int : 252 ms QRS Dur : 166 ms QT Int : 450 ms P-R-T Axes : 067 062 045 degrees QTc Int : 489 ms Atrial-paced rhythm with prolonged AV conduction Right bundle branch block Abnormal ECG When compared with ECG of 05-JAN-2023 09:14, No significant change Confirmed by Serafin Borges ([id number]) on 01/17/2023 8:50:20 AM Referred By: REFERRED SELF Confirmed By:Serafin Borges
[2023-01-17] MEDS: oxyCODONE HCL IR 5 MG TAB (IMMEDIATE RELEASE) PO PRN ×2 (10:08→17:09)
[2023-01-17] MEDS: ALBUT/IPRATROP 3MG/0.5MG NEB 3 ML VIAL NEB SCH ×4 (10:53→22:28)
[2023-01-17] MEDS: LIDOCAINE 5% 1 PATCH TD SCH (12:32)
--- NOTE | 2023-01-17 16:48 | Hospitalist Progress Note ---
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 Fall/Rib Fractures mechanical fall at home Mildly displaced fracture of the left posterior 7, 8 and 9 ribs No pneumothorax or hemothorax Continue with optimal pain control PT/OT Possible pneumonitis on CAT scan: Has dry cough. Continue Rocephin and doxycycline DMII: hgba1c of 8.9. Insulin sliding scale while in hospital. hold home meds Chronic diastolic CHF: On Lasix. monitor for volume overload. follow O2 requirement History of CAD On statin,Imdur Beta-akila and Xarelto. History of a flutter On metoprolol and Xarelto Xarelto dose renally adjusted to 15mg daily per pharmacy recommendations, to consider at discharge. monitor for epistaxis History of sick sinus syndrome S/p pacemaker Morbid obesity On oxygen nightly Migraine On Topamax Depression Anxiety On citalopram and buspirone Peripheral neuropathy Gabapentin DVT prophylaxis on Xarelto Disposition medical floor, pt/ot. Full code Admission and Anticipated Discharge Date Admission Date: January 15, 2023 Subjective Patient seen and examined at bedside. Patient reports left-sided chest pain slightly better than yesterday. Will use lidocaine patch today. Will follow. Denies SOB or chest pain. But patient is apparently breathing shallow and was needing more oxygen in the morning. Reports eating okay and moving bowels okay. Physical Exam Physical Exam: General: Alert, oriented. 6 L oxygen via nasal cannula. Psych: Appropriate mood and affect Neuro:Unable to move HEENT: NC/AT CV: RRR, Normal s1, s2. Resp: no increased effort of breathing. decreased breath sounds bb, occ rales. Abdomen: Soft, nontender, nondistended. Results & Data Results & Data Vital Signs (Past 12 Hours) Vital Signs Temp Pulse Resp BP BP Pulse Ox Pulse Ox 01/17/23 15:24 36.6 C 63 18 148/64 H 91 01/17/23 14:17 60 18 97 01/17/23 11:39 01/17/23 11:35 96 01/17/23 10:53 90 20 96 01/17/23 08:20 90 26 H 96 01/17/23 07:33 36.8 C 60 20 136/58 L 96 01/17/23 06:45 36.9 C 60 22 123/67 95 01/17/23 06:04 60 22 94 O2 Del Method O2 Flow Rate O2 Flow Rate 01/17/23 15:24 Room Air 01/17/23 14:17 Nasal Cannula 5 01/17/23 11:39 Nasal Cannula 5 01/17/23 11:35 6 01/17/23 10:53 Nasal Cannula 6 01/17/23 08:20 Nasal Cannula 6 01/17/23 07:33 Nasal Cannula 5 01/17/23 06:45 Nasal Cannula 5 01/17/23 06:04 Nasal Cannula 5
[2023-01-17] MEDS: RIVAROXABAN 15 MG TAB PO SCH (17:48)
[2023-01-17] MEDS: MELATONIN 3 MG TAB PO SCH (21:05)
[2023-01-17] MEDS: TOPIRAMATE 25 MG TAB PO SCH (21:05)
[2023-01-18] MEDS: ALBUT/IPRATROP 3MG/0.5MG NEB 3 ML VIAL NEB SCH ×6 (02:31→22:30)
[2023-01-18] MEDS: DOXYCYCLINE HYCLATE 100 MG in DEXTROSE 5% 100 ML IV SCH ×2 (04:24→16:13)
[2023-01-18] MEDS: cefTRIAXone SODIUM 2,000 MG in DEXTROSE 5% 50 ML IV SCH (04:33)
[2023-01-18 06:35] LABS: Basophils # (auto) 0.03 K/uL (0-0.2); Basophils % (auto) 0.3 %; Eosinophils # (auto) 0.22 K/uL (0-0.50); Eosinophils % (auto) 1.8 %; Hematocrit (blood only) 38.2 % (37.0-47.0); Hemoglobin 12.4 g/dl (12.0-16.0); Immature Granulocytes # (auto) 0.19 K/uL (0.01-0.20); Immature Granulocytes % (auto) 1.6 %; Lymphocytes # (auto) 1.08 K/uL (1.2-3.4); Mean Corpuscular Hemoglobin 30.2 pg (25.0-34.0); Mean Corpuscular Hgb Conc 32.5 g/dL (32.0-36.0); Mean Corpuscular Volume 92.9 fL (80.0-100.0); Monocytes # (auto) 1.24 K/uL (0.11-0.59); Monocytes % (auto) 10.3 %; Neutrophils # (auto) 9.23 K/uL (1.40-6.50); Platelet Count 125 K/uL (130-400); RDW Coefficient of Variation 12.9 % (11.5-14.5); RDW Standard Deviation 43.7 fL (36.4-46.3); Red Blood Count 4.11 M/uL (4.20-5.40); White Blood Count 11.99 K/ul (4.8-10.8)
[2023-01-18 06:48] LABS: BUN Creatinine Ratio 26.1 (10-20); Calcium 9.1 mg/dl (8.6-10.3); Creatinine Clr Calc Pharmacy 46.3 ml/min; Est GFR (African American) 65.8 ml/min; Est GFR (Non-African American) 56.8 ml/min; Potassium 3.6 mmol/L (3.5-5.1)
[2023-01-18] MEDS: HYDROmorphone INJ 0.5 MG/0.5 ML SYR IV PRN (07:46)
[2023-01-18] MEDS: LIDOCAINE 5% 1 PATCH TD SCH (09:09)
[2023-01-18] MEDS: GABAPENTIN 100 MG CAP PO SCH ×3 (09:09→20:55)
[2023-01-18] MEDS: INSULIN ASPART PER UNIT CHARGE SC SCH ×4 (09:09→20:45)
[2023-01-18] MEDS: ATORVASTATIN 40 MG TAB PO SCH (09:10)
[2023-01-18] MEDS: FUROSEMIDE 40 MG TAB PO SCH (09:10)
[2023-01-18] MEDS: CYANOCOBALAMIN (B-12) 500 MCG TABLET PO SCH (09:10)
[2023-01-18] MEDS: LORATADINE 10 MG TAB PO SCH (09:10)
[2023-01-18] MEDS: CITALOPRAM 20 MG TAB PO SCH (09:11)
[2023-01-18] MEDS: METOPROLOL SUCC 25MG EXT REL TAB PO SCH (09:11)
[2023-01-18] MEDS: busPIRone 5 MG TAB PO SCH ×2 (09:11→20:54)
[2023-01-18] MEDS: ISOSORBIDE MONO EXTENDED REL 30 MG TABCR PO SCH (09:11)
[2023-01-18] MEDS: LANTUS PER UNIT CHARGE SQ SCH (09:17)
[2023-01-18] MEDS: oxyCODONE HCL IR 5 MG TAB (IMMEDIATE RELEASE) PO PRN ×2 (13:30→20:54)
[2023-01-18] MEDS: RIVAROXABAN 15 MG TAB PO SCH (15:41)
[2023-01-18] MEDS ORDERED: guaiFENesin/DEXTROM SYRUP 100MG/10MG 5ML UDC PO PRN (16:59)
--- NOTE | 2023-01-18 17:00 | Hospitalist Progress Note ---
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 Fall/Rib Fractures mechanical fall at home Mildly displaced fracture of the left posterior 7, 8 and 9 ribs No pneumothorax or hemothorax Continue with optimal pain control PT/OT Possible pneumonitis on CAT scan: Has dry cough. Continue Rocephin and doxycycline DMII: hgba1c of 8.9. Insulin sliding scale while in hospital. hold home meds Chronic diastolic CHF: On Lasix. monitor for volume overload. follow O2 requirement History of CAD On statin,Imdur Beta-akila and Xarelto. History of a flutter On metoprolol and Xarelto Xarelto dose renally adjusted to 15mg daily per pharmacy recommendations, to consider at discharge. monitor for epistaxis History of sick sinus syndrome S/p pacemaker Morbid obesity On oxygen nightly Migraine On Topamax Depression Anxiety On citalopram and buspirone Peripheral neuropathy Gabapentin DVT prophylaxis on Xarelto Disposition medical floor, pt/ot. Full code Admission and Anticipated Discharge Date Admission Date: January 15, 2023 Subjective Patient seen and examined at bedside. Patient reports left-sided chest pain getting better, felt more relief with lidocaine patch, will continue. Denies SOB or chest pain. Pt advised to use incentive spirometer every hour as able. Reports eating okay and moving bowels okay. Physical Exam Physical Exam: General: Alert, oriented. 4 L oxygen via nasal cannula. Psych: Appropriate mood and affect Neuro:Unable to move HEENT: NC/AT CV: RRR, Normal s1, s2. Resp: no increased effort of breathing. decreased breath sounds bb, occ rales. Abdomen: Soft, nontender, nondistended. Results & Data Results & Data Vital Signs (Past 12 Hours) Vital Signs Temp Pulse Resp BP BP Pulse Ox O2 Del Method 01/18/23 16:40 Nasal Cannula 08/22/23 16:31 36.7 C 68 18 119/67 96 Nasal Cannula 01/18/23 14:50 63 18 93 Nasal Cannula 01/18/23 11:33 62 18 96 Nasal Cannula 01/18/23 07:55 61 20 94 Nasal Cannula 01/18/23 07:50 36.9 C 61 20 123/73 96 Nasal Cannula 01/18/23 06:02 98 Nasal Cannula O2 Flow Rate 01/18/23 16:40 4 01/18/23 16:31 2 01/18/23 14:50 4 01/18/23 11:33 4 01/18/23 07:55 4 01/18/23 07:50 4 01/18/23 06:02 4
[2023-01-18] MEDS: DOCUSATE SODIUM/SENNA 50/8.6MG TAB PO SCH (17:41)
[2023-01-18] MEDS: TOPIRAMATE 25 MG TAB PO SCH (20:55)
[2023-01-18] MEDS: MELATONIN 3 MG TAB PO SCH (20:55)
[2023-01-19] MEDS: ALBUT/IPRATROP 3MG/0.5MG NEB 3 ML VIAL NEB SCH ×3 (02:16→11:38)
[2023-01-19] MEDS: DOXYCYCLINE HYCLATE 100 MG in DEXTROSE 5% 100 ML IV SCH (05:34)
[2023-01-19] MEDS: oxyCODONE HCL IR 5 MG TAB (IMMEDIATE RELEASE) PO PRN (07:39)
[2023-01-19] MEDS: DOCUSATE SODIUM/SENNA 50/8.6MG TAB PO SCH (07:42)
[2023-01-19] MEDS: FUROSEMIDE 40 MG TAB PO SCH (07:42)
[2023-01-19] MEDS: LORATADINE 10 MG TAB PO SCH (07:42)
[2023-01-19] MEDS: CYANOCOBALAMIN (B-12) 500 MCG TABLET PO SCH (07:43)
[2023-01-19] MEDS: GABAPENTIN 100 MG CAP PO SCH ×2 (07:43→13:25)
[2023-01-19] MEDS: ATORVASTATIN 40 MG TAB PO SCH (07:43)
[2023-01-19] MEDS: ISOSORBIDE MONO EXTENDED REL 30 MG TABCR PO SCH (07:44)
[2023-01-19] MEDS: LIDOCAINE 5% 1 PATCH TD SCH (07:44)
[2023-01-19] MEDS: busPIRone 5 MG TAB PO SCH (07:44)
[2023-01-19] MEDS: METOPROLOL SUCC 25MG EXT REL TAB PO SCH (07:44)
[2023-01-19] MEDS: CITALOPRAM 20 MG TAB PO SCH (07:44)
[2023-01-19] MEDS: cefTRIAXone SODIUM 2,000 MG in DEXTROSE 5% 50 ML IV SCH (07:49)
[2023-01-19 08:03] LABS: Hematocrit (blood only) 38.4 % (37.0-47.0); Hemoglobin 12.3 g/dl (12.0-16.0); Mean Corpuscular Hemoglobin 30.1 pg (25.0-34.0); Mean Corpuscular Volume 93.9 fL (80.0-100.0); Mean Platelet Volume 11.1 fL (9.4-12.4); Platelet Count 135 K/uL (130-400); RDW Coefficient of Variation 12.9 % (11.5-14.5); RDW Standard Deviation 44.2 fL (36.4-46.3); Red Blood Count 4.09 M/uL (4.20-5.40); White Blood Count 9.71 K/ul (4.8-10.8)
[2023-01-19 08:49] LABS: BUN Creatinine Ratio 28.3 (10-20); Calcium 9.3 mg/dl (8.6-10.3); Creatinine Clr Calc Pharmacy 46.3 ml/min; Est GFR (African American) 65.8 ml/min; Est GFR (Non-African American) 56.8 ml/min; Potassium 3.6 mmol/L (3.5-5.1)
[2023-01-19] MEDS: INSULIN ASPART PER UNIT CHARGE SC SCH ×2 (08:58→13:24)
[2023-01-19] MEDS: LANTUS PER UNIT CHARGE SQ SCH (09:02)
--- NOTE | 2023-01-19 13:48 | Discharge Summary ---
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 Patient states she was walking in the kitchen when suddenly she lost balance and fell down. Did not hit her head. Fell on her left rib cage. No loss of consciousness. EMS was called and she was brought into the hospital. Says she has cough for long time. When she is coughing her ribs are hurting. No fevers. Currently no shortness of breath. No headache. Has some runny nose. Occasional sore throat.. Currently no nausea. Once in a while she gets abdominal pain but currently no pain. Normal bowel and bladder movements. Hemodynamics are stable. Admission Exam Per Admitting Provider General- Not in distress Head- atraumatic Eyes- PERRL. ENT- oropharynx clear Neck- supple, no JVD, Lungs- clear to auscultation no wheezing or crackles. Heart- regular rhythm; no murmur, no gallop. Abdomen- normal bowel sounds, soft, nontender, no distension Extremities- mild pretibial edema present, no erythema seen. Neuro- alert, oriented x 3; PERRL no facial palsy; no dysarthria; obeys commands, moves extremities. Skin- warm & dry Principal Diagnosis Left 7, 8, 9 posterior rib fractures Pneumonitis Mechanical fall Discharge Exam Constitutional WD/WN, vitals as above no acute distress Respiratory normal respiratory effort; no respiratory distress Auscultation: + diminished lung sounds Cardiovascular Rate/Rhythm: regular rate and regular rhythm Vessels: normal peripheral pulses Extremities: no edema Gastrointestinal (Abdomen) Percussion/Palpation: abdomen soft; abdomen nontender Skin no rashes, warm and dry Neurologic no focal motor deficits Psychiatric A+Ox3, euthymic affect Discharge Data Allergies Allergy/AdvReac Type Severity Reaction Status Date / Time No Known Allergies Allergy Unverified 01/15/23 00:52 Ordered Studies Laboratory Results WBC 9.71 K/ul (4.8-10.8) 01/19/23 07:15 RBC 4.09 M/uL (4.20-5.40) L 01/19/23 07:15 Hgb 12.3 g/dl (12.0-16.0) 01/19/23 07:15 Hct 38.4 % (37.0-47.0) 01/19/23 07:15 MCV 93.9 fL (80.0-100.0) 01/19/23 07:15 MCH 30.1 pg (25.0-34.0) 01/19/23 07:15 MCHC 32.0 g/dL (32.0-36.0) 01/19/23 07:15 RDW Std Deviation 44.2 fL (36.4-46.3) 01/19/23 07:15 RDW Coeff of Chun 12.9 % (11.5-14.5) 01/19/23 07:15 Plt Count 135 K/uL (130-400) 01/19/23 07:15 MPV 11.1 fL (9.4-12.4) 01/19/23 07:15 Immature Gran % (Auto) 1.6 % 01/18/23 05:47 Neut % (Auto) 77.0 % 01/18/23 05:47 Lymph % (Auto) 9.0 % 01/18/23 05:47 Jewell % (Auto) 10.3 % 01/18/23 05:47 Eos % (Auto) 1.8 % 01/18/23 05:47 Baso % (Auto) 0.3 % 01/18/23 05:47 Neut # (Auto) 9.23 K/uL (1.40-6.50) H 01/18/23 05:47 Lymph # (Auto) 1.08 K/uL (1.2-3.4) L 01/18/23 05:47 Jewell # (Auto) 1.24 K/uL (0.11-0.59) H 01/18/23 05:47 Eos # (Auto) 0.22 K/uL (0-0.50) 01/18/23 05:47 Baso # (Auto) 0.03 K/uL (0-0.2) 01/18/23 05:47 Immature Gran # (Auto) 0.19 K/uL (0.01-0.20) 01/18/23 05:47 PT 12.8 Seconds (9.0-12.0) H 01/14/23 Unknown INR 1.2 (0.9-1.1) H 01/14/23 Unknown Sodium 142 mmol/L (136-145) 01/19/23 07:15 Potassium 3.6 mmol/L (3.5-5.1) 01/19/23 07:15 Chloride 103 mmol/L (98-107) 01/19/23 07:15 Carbon Dioxide 34 mmol/L (21-32) H 01/19/23 07:15 Anion Gap 5 (3-11) 01/19/23 07:15 BUN 26 mg/dl (6-23) H 01/19/23 07:15 Creatinine 0.92 mg/dl (0.6-1.2) 01/19/23 07:15 Est Cr Clr Drug Dosing 46.3 ml/min 01/19/23 07:15 Est GFR ( Amer) 65.8 ml/min 01/19/23 07:15 Est GFR (Non-Af Amer) 56.8 ml/min 01/19/23 07:15 BUN/Creatinine Ratio 28.3 (10-20) H 01/19/23 07:15 Glucose 203 mg/dl (70-99(Fasting)) H 01/19/23 07:15 POC Glucose 228 mg/dl (70-99) H 01/19/23 11:45 Estimat Average Glucose 209 mg/dl 01/15/23 10:02 Hemoglobin A1c 8.9 % (4.5-5.6) H 01/15/23 10:02 Calcium 9.3 mg/dl (8.6-10.3) 01/19/23 07:15 Magnesium 1.8 mg/dl (1.7-2.4) 01/15/23 10:02 Total Bilirubin 0.4 mg/dl (0.2-1.0) 01/14/23 Unknown AST 17 U/L (13-39) 01/14/23 Unknown ALT 11 U/L (7-52) 01/14/23 Unknown Alkaline Phosphatase 120 U/L (34-104) H 01/14/23 Unknown Total Protein 6.8 gm/dl (6.0-8.3) 01/14/23 Unknown Albumin 3.6 gm/dl (3.4-5.0) 01/14/23 Unknown Globulin 3.2 gm/dl (2.5-4.0) 01/14/23 Unknown Albumin/Globulin Ratio 1.1 (0.9-2) 01/14/23 Unknown Impressions Abdomen/Pelvis CT 01/14/23 19:05 Exam(s): CT ABDOMEN + PELVIS With Contrast IV Amt: 93ml optiray 320 EXAM: CT Abdomen and Pelvis With Intravenous Contrast CLINICAL HISTORY: Reason for exam: Fall L rib pain. TECHNIQUE: Axial computed tomography images of the abdomen and pelvis with intravenous contrast. CTDI is 34.37 mGy and DLP is 1728.78 mGy-cm. Automated exposure control was utilized for the study. A dose lowering technique was utilized adhering to the principles of ALARA. CONTRAST: Patient received 93ml optiray 320 of IV contrast COMPARISON: Comparison made to prior CT scan and pelvis from June 22, 2022. FINDINGS: Lung bases: Unremarkable. No mass. No consolidation. ABDOMEN: Liver: Unremarkable. No mass. Gallbladder and bile ducts: Unremarkable. No calcified stones. No ductal dilation. Pancreas: Unremarkable. No mass. No ductal dilation. Spleen: Unremarkable. No splenomegaly. Adrenals: Unremarkable. No mass. Kidneys and ureters: Unremarkable. No solid mass. No hydronephrosis. Stomach and bowel: Diverticulosis of the transverse, descending and sigmoid colon. No obstruction. No mucosal thickening. PELVIS: Appendix: No findings to suggest acute appendicitis. Bladder: Unremarkable. No mass. Reproductive: Unremarkable as visualized. ABDOMEN and PELVIS: Intraperitoneal space: Unremarkable. No free air. No significant fluid collection. Bones/joints: There are mildly displaced fractures of the left posterior seventh and eighth and ninth ribs No dislocation. Soft tissues: Unremarkable. Vasculature: Unremarkable. No abdominal aortic aneurysm. Lymph nodes: Unremarkable. No enlarged lymph nodes. IMPRESSION: No evidence of acute intra-abdominal pathology. Mild displaced fractures of the left posterior seventh eighth and ninth ribs. No pneumothorax or hemothorax. Diverticulosis of the transverse, descending and sigmoid colon. Electronically signed by: Suzi Mcneill MD 01/14/23 23:[address] 01/14/23 19:05 Exam(s): CT C SPINE EXAM: CT Cervical Spine Without Intravenous Contrast CLINICAL HISTORY: Reason for exam: Trauma. TECHNIQUE: Axial computed tomography images of the cervical spine without intravenous contrast. CTDI is 25.07 mGy and DLP is 467.16 mGy-cm. Automated exposure control was utilized for the study. A dose lowering technique was utilized adhering to the principles of ALARA. COMPARISON: No relevant prior studies available. FINDINGS: Vertebrae: Unremarkable. No acute fracture. Discs/spinal canal/neural foramina: No acute findings. No spinal canal stenosis. Soft tissues: Multiple thyroid nodules. IMPRESSION: No evidence of acute cervical spine pathology. Electronically signed by: Suzi Mcneill MD 01/14/23 23:[address] 01/14/23 19:05 Exam(s): CT CHEST With Contrast IV Amt: 93ml optiray 320 EXAM: CT Chest With Intravenous Contrast CLINICAL HISTORY: Reason for exam: Fall L rib pain. TECHNIQUE: Axial computed tomography images of the chest with intravenous contrast. CTDI is 37.53 mGy and DLP is 1005.39 mGy-cm. Automated exposure control was utilized for the study. A dose lowering technique was utilized adhering to the principles of ALARA. CONTRAST: Patient received 93ml optiray 320 of IV contrast COMPARISON: Comparison made to prior CT scan of the chest from April 15, 2016. FINDINGS: The study is limited as the thorax was only imaged to the T11 segment Lungs: Mild to moderate peribronchial thickening of the central and lower lobe bronchi. Increased interstitial opacities at the lung bases. No mass. No consolidation. Pleural space: Unremarkable. No pneumothorax. No significant effusion. Heart: Cardiomegaly. No significant pericardial effusion. No significant coronary artery calcifications. Bones/joints: Remote fracture deformities of the T2, T7 and T10 segments.. No acute fracture. No dislocation. Soft tissues: Thyroid nodules. Cardiac pacemaker in the left chest wall. Vasculature: Ascending aortic aneurysm measuring 35 mm in diameter. Lymph nodes: Unremarkable. No enlarged lymph nodes. IMPRESSION: No evidence of acute thoracic injury in this limited study. Findings concerned for bronchitis with pneumonitis, which may be of infectious or inflammatory etiologies. No consolidation. Cardiomegaly with pacer in place. Ascending aortic aneurysm. Electronically signed by: Suzi Mcneill MD 01/14/23 22:[address] 01/14/23 19:05 Exam(s): CT HEAD Without Contrast EXAM: CT Head Without Intravenous Contrast CLINICAL HISTORY: Reason for exam: Trauma. TECHNIQUE: Axial computed tomography images of the head/brain without intravenous contrast. CTDI is 35.67 mGy and DLP is 624.41 mGy-cm. Automated exposure control was utilized for the study. A dose lowering technique was utilized adhering to the principles of ALARA. COMPARISON: Comparison made to prior head CT from June 22, 2022. FINDINGS: Brain: Unremarkable. No hemorrhage. Moderate nonspecific white matter changes. No edema. Ventricles: Unremarkable. No ventriculomegaly. Bones/joints: Hyperostosis frontalis interna. No acute fracture. Soft tissues: Bilateral lens replacements.. Sinuses: Unremarkable as visualized. No acute sinusitis. Mastoid air cells: Unremarkable as visualized. No mastoid effusion. IMPRESSION: No evidence of acute intracranial pathology. Electronically signed by: Suzi Mcneill MD 01/14/23 22:20 PM Chest X-Ray 01/17/23 05:52 XR chest 1V portable HISTORY: 87 years-old Female hypoxia acute hypoxia COMPARISON: Chest CT 01/14/2023 TECHNIQUE: AP view of the chest FINDINGS: Cardiac silhouette is enlarged. Left subclavian pacer. Atherosclerosis of the aorta. Mild right hemidiaphragmatic elevation. Pulmonary vascular congestion without pneumothorax, pleural effusion or airspace consolidation. Bones appear grossly intact. IMPRESSION: Cardiomegaly with pulmonary vascular congestion. ACT 112: Negative or not required by law. The above report was generated using voice recognition software. It may contain grammatical, syntax or spelling errors. Electronically signed by: Nikita Burks M.D. 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 Fall/Rib Fractures mechanical fall at home Mildly displaced fracture of the left posterior 7, 8 and 9 ribs No pneumothorax or hemothorax Pain controlled with scheduled Tylenol and Lidoderm patch. Oxycodone for breakthrough pain. Continue to encourage incentive spirometer Possible pneumonitis on CAT scan Treated with IV ceftriaxone and IV doxycycline Will discharge on cefdinir and doxycycline to complete 7-day course DMII: Hgb A1c 8.9 Received NovoLog and Lantus per protocol while hospitalized Resume home regimen at discharge Chronic diastolic CHF Appears euvolemic, continue home dose Lasix History of CAD Appears stable, no reports of chest pain Continue statin, nitrate History of a flutter On metoprolol and Xarelto Xarelto dose renally adjusted to 15mg daily per pharmacy recommendations Chronic hypoxic respiratory failure Stable on chronic 2 L of oxygen History of sick sinus syndrome S/p pacemaker Morbid obesity On oxygen nightly Migraine On Topamax Depression Anxiety On citalopram and buspirone Peripheral neuropathy Gabapentin Total Time Total Time Spent Total Time Spent (In Minutes): 40 Discharge Plan Discharge Items Patient Disposition: Transfer [facility] Reason For Visit: Fall, Left Rib Pain Discharge Diagnosis: Left 7, 8, 9 posterior rib fractures Activity: As commented below Activity Comment: as per PT/OT recommendations Non-emergency contact: Primary Care Provider Call non-emergency contact if: you have any medication questions, your symptoms worsen and your pain is not controlled Follow-up/Referrals: Deborah Hoang, [Primary Care Provider] - Diet: Carb Consistent or DM2 and Heart Healthy Fluids: 1500ml (6 cups) Addtl Attending Provider Instructions: Patient presenting from home after mechanical fall and found to have multiple left rib fractures. Pain control with scheduled Tylenol and Lidoderm patch. Oxycodone for breakthrough pain. Continue to encourage incentive spirometer. Possible pneumonitis noted on CT scan, patient treated with Rocephin and doxycycline, will discharge on cefdinir and doxycycline to complete a 7-day course. Patient anticoagulated with Xarelto for atrial flutter, dose renally adjusted to 15 mg daily. Pending Studies at Discharge: No Stand-Alone Forms: My [facility] Skilled Items Patient informed of condition?: Yes DNR: No Discharge Level of Care: Skilled Communicable Disease: No Discharge Prognosis: Stable Lines: None Urinary Catheter: No Medications and DC Order Prescriptions: New Xarelto 15 mg Tablet 15 mg PO QDD Qty: 30 0RF acetaminophen [Tylenol Extra Strength] 500 mg Tablet 1,000 mg PO Q8H Qty: 1 0RF lidocaine 5 % Adhesive Patch,Medicated 1 patch transdermal QAM Qty: 7 0RF oxycodone 5 mg Tablet 5 mg PO Q6H PRN (Reason: severe pain (scale score 7-10)) Qty: 10 0RF cefdinir 300 mg capsule 300 mg PO BID 3 Days Qty: 6 0RF doxycycline hyclate 100 mg capsule 100 mg PO BID 3 Days Qty: 6 0RF Continued furosemide 40 mg tablet 40 mg PO QAM atorvastatin 40 mg Tablet 40 mg PO DAILY buspirone 5 mg tablet 5 mg PO AMHS isosorbide mononitrate 30 mg tablet extended release 24 hr 30 mg PO QAM cyanocobalamin (vitamin B-12) [Vitamin B-12] 1,000 mcg Tablet 1,000 mcg PO DAILY topiramate 25 mg tablet 25 mg PO HS citalopram 20 mg Tablet 20 mg PO DAILY gabapentin 100 mg Capsule 200 mg PO TID Rx Instructions: Take AM, NOON & BEFORE BED metoprolol succinate 25 mg tablet extended release 24 hr 25 mg PO QAM albuterol sulfate 90 mcg/actuation Hfa Aerosol Inhaler 2 puff INHALATION DIRECTED PRN (Reason: Shortness Of Breath Or Wheezing) loratadine 10 mg Tablet 10 mg PO DAILY Novolin 70-30 FlexPen U-100 100 unit/mL (70-30) insulin pen 26 unit SUBCUT QAM Novolin 70-30 FlexPen U-100 100 unit/mL (70-30) insulin pen 14 unit SUBCUT HS diclofenac sodium 1 % Gel 4 g TOPICAL QID PRN (Reason: Pain) melatonin 5 mg Tablet 5 mg PO HS Trulicity 1.5 mg/0.5 mL pen injector 1.5 mg SUBCUT WE Ocuvite Adult 50 Plus 250 mg (90 mg-160 mg) Capsule 1 cap PO DAILY Discontinued acetaminophen [Tylenol Extra Strength] 500 mg Tablet 500 mg PO Q6H PRN (Reason: Pain) Xarelto 20 mg tablet 20 mg PO QPM Rx Instructions: TAKE @ DINNER Discharge Orders: Discharge Order (Routine); Ordered 01/19/23 Ordered By: Keely Hi/Other Patient Handouts: Managing Type 2 Diabetes Admission Data Admit Date/Time: 01/15/23 01:33 Attending Provider: Jody Babcock Admit Provider: Tank Kraus Primary Care Provider: Deborah Hoang Other Providers: Tank Kraus Other Interventions: Discharge Summary Assessment (RN) Last Done: 01/19/23 14:21 Supervising Physician Co-Signing Physician Notes Patient seen and examined at bedside as a follow-up of fall/rib fracture and possible pneumonitis. Patient reports improving pain, reports feeling better. Patient has been hemodynamically stable. Patient is getting discharged today with antibiotic to complete the course for pneumonitis. Examination, patient was on 2 L oxygen, NAD, decrease bibasal breath sounds. Patient has been encouraged to use incentive spirometer 10 times every hour when awake. I have seen and examined the patient and have discussed the case with the provider above. I agree with the assessment and plan as stated.
== END 2023-01-19 15:19 | DRG 183 ==
LOC: ED 18:24 → SUATTDRO 01-15 01:33 → 3N 01-15 01:33